=== PATIENT | female | born 1930 | race Caucasian/White ===

== ENCOUNTER 2016-05-30 15:14 | Emergency (ER) | payer MEDICARE, OTHER ==
--- NOTE | 2016-05-30 16:23 | EDM.PDOC ---
[id number] 2d LEG WEAKNESS, STOMACH ISSUE, LEFT FLANK PAIN, SOB Time Seen by Provider: 05/30/16 16:19 Source of Information: Reports: Patient History Limitations: Reports: No limitations - History of Present Illness INITIAL COMMENTS - FREE TEXT/NARRATIVE: Pt has been fatiqued and has had difficulty with pain her left flank area. Onset: gradual Duration: Hour(s): Location: Reports: neck, upper extremity, left, other ( flank) Associated Symptoms: Reports: shortness of breath, other ( Pt did have a flare of her wheezing today. ) - Related Data Allergies Allergy/AdvReac Type Severity Reaction Status Date / Time cefatrizine [Cefatrizine] AdvReac Vomiting Verified 05/30/16 15:40 Home Meds: Home Meds Fluticasone/Salmeterol [Advair 500-50] 1 puff INH DAILY PRN 10/31/12 [History] Aspirin [Guero Chewable Aspirin] 81 mg PO DAILY 01/26/14 [History] Latanoprost [Xalatan 0.005% Ophth Soln] 1 drop EYEBOTH BEDTIME 01/26/14 [History ] Multivitamin with Minerals [Multiple Vitamin] 1 tab PO DAILY 01/26/14 [History] Polyethylene Glycol 3350 [MiraLAX] 17 gm PO DAILY #510 gm 02/25/16 [Rx] Lisinopril 5 mg PO DAILY 05/30/16 [History] Past Medical History HEENT History: Reports: Cataract, Glaucoma, Hard of hearing Cardiovascular History: Reports: Arrhythmia, Hypertension Respiratory History: Reports: Asthma Gastrointestinal History: Reports: GERD, Other (see below) Other 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: , Other (see below) Other OB/BYN History: D&C x 2 Musculoskeletal History: Reports: Fracture, Other (see below) Other Musculoskeletal History: left shoulder tear exstensive Neurological History: Reports: Other (see below) Other Neuro History: 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 Psychiatric History: Reports: Depression Hematologic History: Reports: Blood transfusion(s) - Infectious Disease History Infectious Disease History: Reports: Chicken pox, Measles, Mumps, Scarlet fever , Shingles - Past Surgical History Head Surgeries/Procedures: Reports: None HEENT Surgical History: Reports: Cataract surgery GI Surgical History: Reports: Colonoscopy, EGD Neurological Surgical History: Reports: C-Spine Musculoskeletal Surgical History: Reports: Arthroscopic knee, Hip replacement Other Musculoskeletal Surgeries/Procedures:: miniscus tear Social & Family History - Family History Family Medical History: Noncontributory Oncologic: Reports: Esophageal - Tobacco Use Smoking Status *Q: Never Smoker Years of Tobacco use: 20 Packs/Tins Daily: 1 Used Tobacco, but Quit: Yes Month Tobacco Last Used: january Second Hand Smoke Exposure: Yes - Caffeine Use Caffeine Use: Reports: None - Alcohol Use Days Per Week of Alcohol Use: 0 - Recreational Drug Use Recreational Drug Use: No - Living Situation & Occupation Living situation: Reports: Occupation: retired (lives alone in her own home on [address], drives her own car. no family close by. Brother lives [facility] ED ROS GENERAL - Review of Systems Review Of Systems: See Below Constitutional: Reports: weakness, decreased appetite HEENT: Reports: No symptoms Respiratory: Reports: Shortness of Breath, Other ( Pt thought she had a flare of her asthma today. ) Endocrine: Reports: no symptoms GI/Abdominal: Reports: No symptoms : Reports: no symptoms ED EXAM, GENERAL - Physical Exam Exam: See Below Free Text/Narrative:: Pt arrived with weakness and left flank pain. Exam Limited By: No limitations General Appearance: alert, mild distress Ears: normal TMs Nose: normal inspection Throat/Mouth: Normal inspection Head: atraumatic Neck: normal inspection Respiratory/Chest: no respiratory distress Cardiovascular: regular rate, rhythm GI/Abdominal: soft, non tender Rectal (Female) Exam: Deferred Back Exam: CVA tenderness (L) Extremities: normal inspection Neurological: alert, oriented, normal cognition Psychiatric: normal affect Course - Vital Signs Last Recorded V/S: Last Vital Signs Temp 37.1 C 05/30/16 17:30 Pulse 58 L 05/30/16 17:30 Resp 18 05/30/16 17:30 BP 132/59 L 05/30/16 17:30 Pulse Ox 96 05/30/16 17:30 - Orders/Labs/Meds Labs: Laboratory Tests 05/30/16 05/30/16 05/30/16 Range/Units 16:07 16:07 16:09 WBC 7.0 (4.5-11.0) K/uL RBC 4.06 (3.30-5.50) M/uL Hgb 12.5 D (12.0-15.0) g/dL Hct 37.9 (36.0-48.0) % MCV 93 (80-98) fL MCH 31 (27-31) pg MCHC 33 (32-36) % Plt Count 223 (150-400) K/uL Neut % (Auto) 70 H (36-66) % Lymph % (Auto) 16 L (24-44) % Whitman % (Auto) 9 H (2-6) % Eos % (Auto) 4 (2-4) % Baso % (Auto) 1 (0-1) % Sodium 142 (140-148) mmol/L Potassium 3.6 (3.6-5.2) mmol/L Chloride 105 (100-108) mmol/L Carbon Dioxide 30 (21-32) mmol/L Anion Gap 7.5 (5.0-14.0) mmol/L BUN 19 H D (7-18) mg/dL Creatinine 0.8 (0.6-1.0) mg/dL Est Cr Clr Drug Dosing TNP Estimated GFR (MDRD) > 60 (>60) Glucose 101 (74-106) mg/dL Calcium 8.5 (8.5-10.1) mg/dL Total Bilirubin 0.4 (0.2-1.0) mg/dL AST 21 (15-37) U/L ALT 29 (12-78) U/L Alkaline Phosphatase 119 H (46-116) U/L C-Reactive Protein (0.0-0.3) mg/dL Total Protein 7.1 (6.4-8.2) g/dL Albumin 3.7 (3.4-5.0) g/dL Globulin 3.4 (2.3-3.5) g/dL Albumin/Globulin Ratio 1.1 L (1.2-2.2) TSH, Ultra Sensitive (0.358-3.740) uIU/mL Urine Color Yellow Urine Appearance Clear Urine pH 7.0 (4.5-8.0) Ur Specific [place] 1.005 L (1.008-1.030) Urine Protein Negative (NEGATIVE) mg/dL Urine Glucose (UA) Normal (NEGATIVE) mg/dL Urine Ketones Negative (NEGATIVE) mg/dL Urine Occult Blood Negative (NEGATIVE) Urine Nitrite Negative (NEGATIVE) Urine Bilirubin Negative (NEGATIVE) Urine Urobilinogen Normal (NORMAL) mg/dL Ur Leukocyte Esterase Negative (NEGATIVE) Urine RBC 0-5 (0-5) Urine WBC 0-5 (0-5) Ur Epithelial Cells Rare Amorphous Sediment Few Urine Bacteria Not seen Urine Mucus Few 05/30/16 05/30/16 Range/Units 16:09 17:02 WBC (4.5-11.0) K/uL RBC (3.30-5.50) M/uL Hgb (12.0-15.0) g/dL Hct (36.0-48.0) % MCV (80-98) fL MCH (27-31) pg MCHC (32-36) % Plt Count (150-400) K/uL Neut % (Auto) (36-66) % Lymph % (Auto) (24-44) % Whitman % (Auto) (2-6) % Eos % (Auto) (2-4) % Baso % (Auto) (0-1) % Sodium (140-148) mmol/L Potassium (3.6-5.2) mmol/L Chloride (100-108) mmol/L Carbon Dioxide (21-32) mmol/L Anion Gap (5.0-14.0) mmol/L BUN (7-18) mg/dL Creatinine (0.6-1.0) mg/dL Est Cr Clr Drug Dosing Estimated GFR (MDRD) (>60) Glucose (74-106) mg/dL Calcium (8.5-10.1) mg/dL Total Bilirubin (0.2-1.0) mg/dL AST (15-37) U/L ALT (12-78) U/L Alkaline Phosphatase (46-116) U/L C-Reactive Protein 0.12 (0.0-0.3) mg/dL Total Protein (6.4-8.2) g/dL Albumin (3.4-5.0) g/dL Globulin (2.3-3.5) g/dL Albumin/Globulin Ratio (1.2-2.2) TSH, Ultra Sensitive 0.505 (0.358-3.740) uIU/mL Urine Color Urine Appearance Urine pH (4.5-8.0) Ur Specific [place] (1.008-1.030) Urine Protein (NEGATIVE) mg/dL Urine Glucose (UA) (NEGATIVE) mg/dL Urine Ketones (NEGATIVE) mg/dL Urine Occult Blood (NEGATIVE) Urine Nitrite (NEGATIVE) Urine Bilirubin (NEGATIVE) Urine Urobilinogen (NORMAL) mg/dL Ur Leukocyte Esterase (NEGATIVE) Urine RBC (0-5) Urine WBC (0-5) Ur Epithelial Cells Amorphous Sediment Urine Bacteria Urine Mucus Meds: Medications Discontinued Medications Generic Name Dose Route Start Last Admin Trade Name Freq PRN Reason Stop Dose Admin Famotidine 20 mg 05/30/16 17:34 05/30/16 17:40 Pepcid PO 05/30/16 17:35 20 mg ONETIME ONE Administration Ketorolac Tromethamine 30 mg 05/30/16 17:27 05/30/16 17:40 Toradol IM 05/30/16 17:28 30 mg ONETIME ONE Administration - Re-Assessments/Exams Free Text/Narrative Re-Assessment/Exam: 05/30/16 17:35 pt hd normal lab work. her urine is clear. She has been stressed this week. Her flank pain i believe is muscle pain. Pt has a normal tsh. Pt has been stressed because the electricity was off and she could not get her garage door open to get her car out. She was able to get it part way up and she was straining to get it the rest of the way up. 05/30/16 17:37 06/02/16 07:07 Departure - Departure Time of Disposition: 17:37 Disposition: Home, Self-Care 01 Condition: fair Clinical Impression: Abdominal pain, Muscle strain Instructions: Muscle Strain, [id number], Abdominal Pain, Adult, [id number] Referrals: Ricky Traylor MD [Primary Care Provider] - Forms: ED Department Discharge Care Plan Goals: heat to the left cva area and left shoulder. eat litely and gradually advance diet, appt with Dr Kymberly hagen or giancarlo.
[2016-05-30] MEDS ORDERED: Ketorolac 30 MG/ML SDV IM ONE (17:27)
[2016-05-30 17:31] VITALS: BP 132/59
[2016-05-30] MEDS ORDERED: Famotidine 20 MG Tab PO ONE (17:34)
== END 2016-05-30 19:20 | disposition home or self-care (01) ==
LOC: JP.ED 15:14
DX: R10.9 Unspecified abdominal pain (principal); S39.011A Strain of muscle, fascia and tendon of abdomen, initial encounter; I10 Essential (primary) hypertension; J45.909 Unspecified asthma, uncomplicated; K21.9 Gastro-esophageal reflux disease without esophagitis; F32.9 Major depressive disorder, single episode, unspecified; Z98.49 Cataract extraction status, unspecified eye; Z96.649 Presence of unspecified artificial hip joint; Z98.890 Other specified postprocedural states; Z79.82 Long term (current) use of aspirin; Z79.899 Other long term (current) drug therapy; Z88.8 Allergy status to other drugs, medicaments and biological substances
CPT/HCPCS: 36415; 80053; 81001; 84443; 85025; 86140; 96372; 99285; A9270; J1885; 99283

== ENCOUNTER 2016-07-26 11:13 | Emergency (ER) | payer MEDICARE, OTHER ==
[2016-07-26 11:39] VITALS: BP 150/65
--- NOTE | 2016-07-26 13:08 | EDM.PDOC ---
ED HPI GENERAL MEDICAL PROBLEM - General Chief Complaint: General Stated Complaint: NOT FEELING WELL Time Seen by Provider: 07/26/16 11:58 Source of Information: Reports: Patient History Limitations: Reports: No Limitations Lower Back Pain Score (Numeric/FACES): 4 - Related Data Allergies Allergy/AdvReac Type Severity Reaction Status Date / Time cefatrizine [Cefatrizine] AdvReac Vomiting Verified 05/30/16 15:40 Home Meds: Home Meds Fluticasone/Salmeterol [Advair 500-50] 1 puff INH DAILY PRN 10/31/12 [History] Aspirin [Guero Chewable Aspirin] 81 mg PO DAILY 01/26/14 [History] Latanoprost [Xalatan 0.005% Ophth Soln] 1 drop EYEBOTH BEDTIME 01/26/14 [History ] Multivitamin with Minerals [Multiple Vitamin] 1 tab PO DAILY 01/26/14 [History] Lisinopril 5 mg PO DAILY 05/30/16 [History] Polyethylene Glycol 3350 [MiraLAX] 17 gm PO DAILY PRN 07/26/16 [History] Timolol Maleate [Timoptic 0.5% Ophth Soln] 1 drop EYEBOTH ASDIRECTED 07/26/16 [ History] predniSONE [Take Home: predniSONE 20 MG, 2 Tab Pack] 07/26/16 [History] Past Medical History HEENT History: Reports: Cataract, Glaucoma, Hard of Hearing Cardiovascular History: Reports: Arrhythmia, Hypertension Respiratory History: Reports: Asthma Gastrointestinal History: Reports: GERD, Other (See Below) Other 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 Psychiatric History: Reports: Depression Hematologic History: Reports: Blood Transfusion(s) - Infectious Disease History Infectious Disease History: Reports: Chicken Pox, Measles, Mumps, Scarlet Fever , Other (See Below) Other Infectious Disease History: states she has had hepatitis but does not know what kind. - Past Surgical History Head Surgeries/Procedures: Reports: None HEENT Surgical History: Reports: Cataract Surgery Musculoskeletal Surgical History: Reports: Arthroscopic Knee, Hip Replacement Social & Family History - Family History Family Medical History: Noncontributory Oncologic: Reports: Esophageal - Tobacco Use Smoking Status *Q: Never Smoker Years of Tobacco use: 20 Packs/Tins Daily: 1 Used Tobacco, but Quit: Yes Month Tobacco Last Used: january Second Hand Smoke Exposure: Yes - Caffeine Use Caffeine Use: Reports: Coffee, Tea - Alcohol Use Days Per Week of Alcohol Use: 0 - Recreational Drug Use Recreational Drug Use: No - Living Situation & Occupation Living situation: Reports: Occupation: Retired ED ROS GENERAL - Review of Systems Review Of Systems: See Below Constitutional: Reports: Weakness, Fatigue. Denies: Fever, Chills, Malaise, Night Sweats, Diaphoresis, Decreased Appetite, Weight Loss, Weight Gain HEENT: Reports: No Symptoms Respiratory: Denies: Shortness of Breath, Wheezing, Pleuritic Chest Pain, Cough , Sputum, Hemoptysis Cardiovascular: Denies: Chest Pain, Blood Pressure Problem, Dyspnea on Exertion , Edema, Lightheadedness, Palpitations, PND, Syncope Endocrine: Reports: Fatigue GI/Abdominal: Reports: No Symptoms : Reports: Frequency. Denies: Discharge, Dysuria, Flank Pain, Hematuria, Incontinence, Pain, Urgency Musculoskeletal: Reports: Other (Muscle weakness) Skin: Reports: No Symptoms Neurological: Denies: Confusion, Dizziness, Headache, Paresthesia, Syncope, Difficulty Walking, Gait Disturbance Psychiatric: Reports: Anxiety. Denies: Confusion, Depression, Hallucinations, Homicidal Ideation, Mood Lability, Suicidal Ideation Hematologic/Lymphatic: Reports: No Symptoms Immunologic: Reports: No Symptoms ED EXAM, GENERAL - Physical Exam Exam: See Below Exam Limited By: No Limitations General Appearance: Alert, WD/WN, No Apparent Distress Eye Exam: Bilateral Eye: Normal Inspection, PERRL Ears: Normal External Exam, Normal Canal, Hearing Grossly Normal, Normal TMs Ear Exam: Bilateral Ear: Auricle Normal, Canal Normal, TM normal Nose: Normal Inspection, Normal Mucosa, No Blood Throat/Mouth: Normal Inspection, Normal Lips, Normal Gums, Normal Oropharynx, Normal Voice, No Airway Compromise Head: Atraumatic, Normocephalic Neck: Normal Inspection, Supple, Non-Tender, Full Range of Motion Respiratory/Chest: No Respiratory Distress, Lungs Clear, Normal Breath Sounds, No Accessory Muscle Use, Chest Non-Tender Cardiovascular: Normal Peripheral Pulses, Regular Rate, Rhythm, No Edema, No Gallop, No Murmur GI/Abdominal: Normal Bowel Sounds, Soft, Non-Tender, No Organomegaly, No Distention, No Mass Back Exam: Normal Inspection, Full Range of Motion. No: CVA Tenderness (R), CVA Tenderness (L) Extremities: Normal Inspection, Normal Range of Motion, Non-Tender, No Pedal Edema, Normal Capillary Refill Neurological: Alert, Oriented, CN II-XII Intact, Normal Cognition, Normal Gait, No Motor/Sensory Deficits Psychiatric: Normal Affect, Anxious, Tearful Skin Exam: Warm, Dry, Intact, Normal Color, No Rash Lymphatic: No Adenopathy Course - Vital Signs Last Recorded V/S: Last Vital Signs Temp 36.3 C 07/26/16 11:52 Pulse 73 07/26/16 11:52 Resp 16 07/26/16 11:52 BP 150/65 H 07/26/16 11:52 Pulse Ox 95 07/26/16 11:52 - Orders/Labs/Meds Labs: Laboratory Tests 07/26/16 Range/Units 12:12 Urine Color Yellow Urine Appearance Clear Urine pH 6.0 (4.5-8.0) Ur Specific [place] 1.010 (1.008-1.030) Urine Protein Negative (NEGATIVE) mg/dL Urine Glucose (UA) Normal (NEGATIVE) mg/dL Urine Ketones Negative (NEGATIVE) mg/dL Urine Occult Blood Negative (NEGATIVE) Urine Nitrite Negative (NEGATIVE) Urine Bilirubin Negative (NEGATIVE) Urine Urobilinogen Normal (NORMAL) mg/dL Ur Leukocyte Esterase Negative (NEGATIVE) Urine RBC Not seen (0-5) Urine WBC Not seen (0-5) Ur Epithelial Cells Not seen Amorphous Sediment Not seen Urine Bacteria Not seen Urine Mucus Not seen Departure - Departure Time of Disposition: 13:04 Disposition: Home, Self-Care 01 Condition: good Clinical Impression: Anxiety, Muscle weakness (generalized) - Discharge Information Instructions: Panic Attacks, [id number] Referrals: Ricky Traylor MD [Primary Care Provider] - Forms: ED Department Discharge Additional Instructions: Review of your lab work and urine analysis was normal today. You have weakness of your legs. Keep yourself hydrated with drinking plenty of water. Keep yourself nourished with plenty of good food. You were provided information for life alert button use and a local exercise group for strengthening. It is in your best interest to follow up with Dr. Traylor this week or next week for further evaluation and medication management. You may want to consider use of medication for anxiety, vitamin d level and supplementation if needed or a physical therapy referral for strengthening and evaluation of weakness. Return at any time for worsening of symptoms. - Assessment/Plan Assessment:: Anxiety Muscle weakness Plan: Patient lab work and urine analysis was normal today. She has weakness of your legs. Keep hydrated with drinking plenty of water. Keep nourished with plenty of good food. She were provided information for life alert button use and a local exercise group for strengthening. It is in her best interest to follow up with Dr. Traylor this week or next week for further evaluation and medication management. She may want to consider use of medication for anxiety, vitamin d level and supplementation if needed or a physical therapy referral for strengthening and evaluation of weakness. Return at any time for worsening of symptoms.
== END 2016-07-26 13:26 | disposition home or self-care (01) ==
LOC: JP.ED 11:13
DX: M62.81 Muscle weakness (generalized) (principal); F41.9 Anxiety disorder, unspecified; I10 Essential (primary) hypertension; J45.909 Unspecified asthma, uncomplicated; K21.9 Gastro-esophageal reflux disease without esophagitis; F32.9 Major depressive disorder, single episode, unspecified; Z98.49 Cataract extraction status, unspecified eye; Z96.649 Presence of unspecified artificial hip joint; Z98.890 Other specified postprocedural states; Z79.82 Long term (current) use of aspirin; Z79.899 Other long term (current) drug therapy; Z88.8 Allergy status to other drugs, medicaments and biological substances
CPT/HCPCS: 81001; 99282; 99284

== ENCOUNTER 2016-08-05 17:24 | Inpatient (IN) | payer MEDICARE, OTHER ==
[2016-08-05] MEDS ORDERED: Sodium Chloride 0.9% 1,000 ML IV SCH ×2 (20:15→23:27)
--- NOTE | 2016-08-05 22:52 | EDM.PDOC ---
ED HPI GENERAL MEDICAL PROBLEM - General Chief Complaint: Syncope Stated Complaint: ILLNESS Time Seen by Provider: 08/05/16 19:47 Source of Information: Reports: Patient, RN Notes Reviewed, Other (friends) History Limitations: Reports: No Limitations - History of Present Illness INITIAL COMMENTS - FREE TEXT/NARRATIVE: weakness, near fainting; this is a 85 year old female presents to ER with friends. Her friends check on her well being at her home on [facility]. They were concern and brought her to the hospital , when they witnessed her to be very weak, near fainted in home. weakness; past week, but reports hasn't felt well since last winter dull headache, reports had her blood pressure medication changed to Lisinopril, hasn't felt well since. eating; decreased appetite, denies any nausea, vomiting or diarrhea, wt loss of 10 pound since last winter skin; denies any tick bites or rashes. Onset: Gradual Duration: Getting Worse Location: Reports: Generalized Improves with: Reports: None Worsens with: Reports: None Associated Symptoms: Reports: Headaches, Loss of Appetite, Malaise, Syncope ( near), Weakness Headache Pain Score (Numeric/FACES): 4 - Related Data Allergies Allergy/AdvReac Type Severity Reaction Status Date / Time cefatrizine [Cefatrizine] AdvReac Vomiting Verified 05/30/16 15:40 Home Meds: Home Meds Fluticasone/Salmeterol [Advair 500-50] 1 puff INH DAILY PRN 10/31/12 [History] Aspirin [Guero Chewable Aspirin] 81 mg PO DAILY 01/26/14 [History] Latanoprost [Xalatan 0.005% Ophth Soln] 1 drop EYEBOTH BEDTIME 01/26/14 [History ] Multivitamin with Minerals [Multiple Vitamin] 1 tab PO DAILY 01/26/14 [History] Lisinopril 5 mg PO DAILY 05/30/16 [History] Omeprazole 20 mg PO DAILY 08/05/16 [History] Past Medical History HEENT History: Reports: Cataract, Glaucoma, Hard of Hearing Cardiovascular History: Reports: Arrhythmia, Hypertension Respiratory History: Reports: Asthma Gastrointestinal History: Reports: GERD, Other (See Below) 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 Psychiatric History: Reports: Depression Hematologic History: Reports: Blood Transfusion(s) - Infectious Disease History Infectious Disease History: Reports: Chicken Pox, Measles, Mumps, Scarlet Fever , Other (See Below) Other Infectious Disease History: states she has had hepatitis but does not know what kind. - Past Surgical History Head Surgeries/Procedures: Reports: None HEENT Surgical History: Reports: Cataract Surgery Musculoskeletal Surgical History: Reports: Arthroscopic Knee, Hip Replacement Social & Family History - Family History Family Medical History: Noncontributory Oncologic: Reports: Esophageal - Tobacco Use Smoking Status *Q: Never Smoker Years of Tobacco use: 20 Packs/Tins Daily: 1 Used Tobacco, but Quit: Yes Month Tobacco Last Used: january Second Hand Smoke Exposure: No - Caffeine Use Caffeine Use: Reports: Tea - Alcohol Use Days Per Week of Alcohol Use: 0 - Recreational Drug Use Recreational Drug Use: No - Living Situation & Occupation Living situation: Reports: Occupation: Retired (85 y/o female lives alone at her home on [facility]. one son, lives in [place]) ED ROS GENERAL - Review of Systems Review Of Systems: See Below Constitutional: Reports: Weakness, Fatigue, Decreased Appetite, Weight Loss HEENT: Reports: Other (dry mouth) Respiratory: Reports: No Symptoms Cardiovascular: Reports: Blood Pressure Problem, Other (chronic irregular rythm , with PAC's.) Endocrine: Reports: Fatigue GI/Abdominal: Reports: Decreased Appetite : Reports: Frequency, Urgency Musculoskeletal: Reports: No Symptoms Skin: Reports: No Symptoms Neurological: Reports: Headache, Weakness Psychiatric: Reports: No Symptoms Hematologic/Lymphatic: Reports: No Symptoms Immunologic: Reports: No Symptoms ED EXAM, GENERAL - Physical Exam Exam: See Below Exam Limited By: No Limitations General Appearance: Alert, No Apparent Distress Eye Exam: Bilateral Eye: Normal Inspection, PERRL Ears: Normal External Exam, Normal Canal, Hearing Grossly Normal, Normal TMs Ear Exam: Bilateral Ear: Auricle Normal, Canal Normal, TM normal Nose: Normal Inspection, Normal Mucosa, No Blood Throat/Mouth: Other (mouth dryness noted, dentures.) Head: Atraumatic, Normocephalic Neck: Normal Inspection, Supple, Non-Tender, Full Range of Motion Respiratory/Chest: No Respiratory Distress, Lungs Clear, Normal Breath Sounds, No Accessory Muscle Use, Chest Non-Tender Cardiovascular: Normal Peripheral Pulses, No Edema, No Murmur, Irregularly Irregular Peripheral Pulses: 2+: Radial (L), Radial (R), Dorsalis Pedis (L), Dorsalis Pedis (R) GI/Abdominal: Normal Bowel Sounds, Soft, Non-Tender, No Organomegaly, No Distention, No Abnormal Bruit, No Mass, Pelvis Stable (Female) Exam: Deferred Rectal (Female) Exam: Deferred Back Exam: Normal Inspection, Full Range of Motion Extremities: Normal Inspection, Normal Range of Motion, Non-Tender, No Pedal Edema, Normal Capillary Refill Neurological: Alert, Oriented, Normal Cognition, No Motor/Sensory Deficits Psychiatric: Normal Affect, Normal Mood Skin Exam: Warm, Dry, Intact, Normal Color, No Rash Lymphatic: No Adenopathy Course - Vital Signs Last Recorded V/S: Last Vital Signs Temp 36.8 C 08/05/16 19:56 Pulse 66 08/05/16 21:36 Resp 16 08/05/16 22:03 BP 167/99 H 08/05/16 22:03 Pulse Ox 98 08/05/16 22:03 Orthostatic Blood Pressure [ 188/88 Standing] Orthostatic Blood Pressure [ 197/102 Sitting] - Orders/Labs/Meds Orders: Active Orders 24 hr Category Date Time Status Patient Status Manage Transfer [TRANSFER] Routine ADT 08/05/16 22:22 Active Cardiac Monitoring [RC] .As Directed Care 08/05/16 22:22 Active EKG Documentation Completion [RC] ASDIRECTED Care 08/05/16 20:04 Active Head wo Cont [CT] Stat Exams 08/05/16 21:14 Taken Sodium Chloride 0.9% [Normal Saline] 1,000 ml Med 08/05/16 20:15 Active IV ASDIRECTED Resuscitation Status Routine Resus Stat 08/05/16 22:24 Ordered EKG 12 Lead [EK] Urgent Ther 08/05/16 20:03 Ordered Medication Orders Sodium Chloride (Normal Saline) 1,000 mls @ 150 mls/hr IV ASDIRECTED RENETTA Last Admin: 08/05/16 20:38 Dose: 150 mls/hr Labs: Laboratory Tests 08/05/16 08/05/16 08/05/16 Range/Units 20:02 20:02 20:02 WBC 6.0 (4.5-11.0) K/uL RBC 4.12 (3.30-5.50) M/uL Hgb 12.6 (12.0-15.0) g/dL Hct 38.7 (36.0-48.0) % MCV 94 (80-98) fL MCH 31 (27-31) pg MCHC 33 (32-36) % Plt Count 241 (150-400) K/uL Neut % (Auto) 62 (36-66) % Lymph % (Auto) 20 L (24-44) % [place] % (Auto) 10 H (2-6) % Eos % (Auto) 5 H (2-4) % Baso % (Auto) 2 H (0-1) % Sodium 146 (140-148) mmol/L Potassium 3.7 (3.6-5.2) mmol/L Chloride 107 (100-108) mmol/L Carbon Dioxide 26 (21-32) mmol/L Anion Gap 12.9 (5.0-14.0) mmol/L BUN 10 (7-18) mg/dL Creatinine 0.6 (0.6-1.0) mg/dL Est Cr Clr Drug Dosing 49.85 mL/min Estimated GFR (MDRD) > 60 (>60) Glucose 96 (74-106) mg/dL Calcium 9.1 (8.5-10.1) mg/dL Magnesium 2.4 (1.8-2.4) mg/dL Total Bilirubin 0.4 (0.2-1.0) mg/dL AST 21 (15-37) U/L ALT 22 (12-78) U/L Alkaline Phosphatase 141 H (46-116) U/L Troponin I < 0.017 (0.000-0.056) ng/mL Total Protein 7.3 (6.4-8.2) g/dL Albumin 3.7 (3.4-5.0) g/dL Globulin 3.6 H (2.3-3.5) g/dL Albumin/Globulin Ratio 1.0 L (1.2-2.2) Amylase 54 (25-115) U/L Lipase 126 (73-393) U/L TSH, Ultra Sensitive 0.803 (0.358-3.740) uIU/mL Urine Color Urine Appearance Urine pH (4.5-8.0) Ur Specific [place] (1.008-1.030) Urine Protein (NEGATIVE) mg/dL Urine Glucose (UA) (NEGATIVE) mg/dL Urine Ketones (NEGATIVE) mg/dL Urine Occult Blood (NEGATIVE) Urine Nitrite (NEGATIVE) Urine Bilirubin (NEGATIVE) Urine Urobilinogen (NORMAL) mg/dL Ur Leukocyte Esterase (NEGATIVE) Urine RBC (0-5) Urine WBC (0-5) Ur Epithelial Cells Amorphous Sediment Urine Bacteria Urine Mucus 08/05/16 Range/Units 20:26 WBC (4.5-11.0) K/uL RBC (3.30-5.50) M/uL Hgb (12.0-15.0) g/dL Hct (36.0-48.0) % MCV (80-98) fL MCH (27-31) pg MCHC (32-36) % Plt Count (150-400) K/uL Neut % (Auto) (36-66) % Lymph % (Auto) (24-44) % [place] % (Auto) (2-6) % Eos % (Auto) (2-4) % Baso % (Auto) (0-1) % Sodium (140-148) mmol/L Potassium (3.6-5.2) mmol/L Chloride (100-108) mmol/L Carbon Dioxide (21-32) mmol/L Anion Gap (5.0-14.0) mmol/L BUN (7-18) mg/dL Creatinine (0.6-1.0) mg/dL Est Cr Clr Drug Dosing mL/min Estimated GFR (MDRD) (>60) Glucose (74-106) mg/dL Calcium (8.5-10.1) mg/dL Magnesium (1.8-2.4) mg/dL Total Bilirubin (0.2-1.0) mg/dL AST (15-37) U/L ALT (12-78) U/L Alkaline Phosphatase (46-116) U/L Troponin I (0.000-0.056) ng/mL Total Protein (6.4-8.2) g/dL Albumin (3.4-5.0) g/dL Globulin (2.3-3.5) g/dL Albumin/Globulin Ratio (1.2-2.2) Amylase (25-115) U/L Lipase (73-393) U/L TSH, Ultra Sensitive (0.358-3.740) uIU/mL Urine Color Yellow Urine Appearance Clear Urine pH 8.0 (4.5-8.0) Ur Specific [place] 1.015 (1.008-1.030) Urine Protein Negative (NEGATIVE) mg/dL Urine Glucose (UA) Normal (NEGATIVE) mg/dL Urine Ketones Negative (NEGATIVE) mg/dL Urine Occult Blood Negative (NEGATIVE) Urine Nitrite Negative (NEGATIVE) Urine Bilirubin Negative (NEGATIVE) Urine Urobilinogen Normal (NORMAL) mg/dL Ur Leukocyte Esterase Negative (NEGATIVE) Urine RBC 0-5 (0-5) Urine WBC 0-5 (0-5) Ur Epithelial Cells Rare Amorphous Sediment Not seen Urine Bacteria Rare Urine Mucus Not seen Meds: Medications Generic Name Dose Route Start Last Admin Trade Name Freq PRN Reason Stop Dose Admin Sodium Chloride 1,000 mls @ 150 mls/hr 08/05/16 20:15 08/05/16 20:38 Normal Saline IV 150 mls/hr ASDIRECTED [facility] Administration - Re-Assessments/Exams Free Text/Narrative Re-Assessment/Exam: 08/05/16 labs, imaging completed; no acute finding Head CT pending IV fluids started. discussed with Mrs. Ponce will admit to hospital for monitoring and recheck labs in morning. Departure - Departure Time of Disposition: 23:00 Disposition: Admitted As Inpatient 64 Condition: Good Clinical Impression: Weakness generalized - Discharge Information Forms: ED Department Discharge Care Plan Goals: admit to hospital for further monitoring. - My Orders Last 24 Hours: My Active Orders 08/05/16 20:03 EKG 12 Lead [EK] Urgent 08/05/16 20:04 EKG Documentation Completion [RC] ASDIRECTED 08/05/16 20:15 Sodium Chloride 0.9% [Normal Saline] 1,000 ml IV ASDIRECTED 08/05/16 21:14 Head wo Cont [CT] Stat 08/05/16 22:22 Patient Status Manage Transfer [TRANSFER] Routine Cardiac Monitoring [RC] .As Directed 08/05/16 22:24 Resuscitation Status Routine - Assessment/Plan Last 24 Hours: My Active Orders 08/05/16 20:03 EKG 12 Lead [EK] Urgent 08/05/16 20:04 EKG Documentation Completion [RC] ASDIRECTED 08/05/16 20:15 Sodium Chloride 0.9% [Normal Saline] 1,000 ml IV ASDIRECTED 08/05/16 21:14 Head wo Cont [CT] Stat 08/05/16 22:22 Patient Status Manage Transfer [TRANSFER] Routine Cardiac Monitoring [RC] .As Directed 08/05/16 22:24 Resuscitation Status Routine
--- NOTE | 2016-08-05 23:03 | PCM.HP ---
H&P History of Present Illness - General Date of Service: 08/05/16 Admit Problem/Dx: Admission Diagnosis/Problem Admission Diagnosis/Problem Weakness Source of Information: Patient History Limitations: Reports: No Limitations - History of Present Illness Initial Comments - Free Text/Narative: INITIAL COMMENTS - FREE TEXT/NARRATIVE: weakness, near fainting; this is a 85 year old female presents to ER with friends. Her friends check on her well being at her home on [facility]. They were concern and brought her to the hospital , when they witnessed her to be very weak, near fainted in home. weakness; past week, but reports hasn't felt well since last winter dull headache, reports had her blood pressure medication changed to Lisinopril, hasn't felt well since. eating; decreased appetite, denies any nausea, vomiting or diarrhea, wt loss of 10 pound since last winter skin; denies any tick bites or rashes. Onset of Symptoms: Reports: Gradual Duration of Symptoms: Reports: Chronic (reports not feeling well since last winter), Getting Worse Location: Reports: Generalized Quality: Reports: Same as Previous Episode Severity: Moderate Improves with: Reports: None Worsens with: Reports: None Context: Reports: Other Associated Symptoms: Reports: Loss of Appetite, Malaise, Weakness, Other (wt loss) Headache Pain Score (Numeric/FACES): 4 - Related Data Allergies/Adverse Reactions: Allergies Allergy/AdvReac Type Severity Reaction Status Date / Time cefatrizine [Cefatrizine] AdvReac Vomiting Verified 05/30/16 15:40 Home Medications: Home Meds Fluticasone/Salmeterol [Advair 500-50] 1 puff INH DAILY PRN 10/31/12 [History] Aspirin [Guero Chewable Aspirin] 81 mg PO DAILY 01/26/14 [History] Latanoprost [Xalatan 0.005% Ophth Soln] 1 drop EYEBOTH BEDTIME 01/26/14 [History ] Multivitamin with Minerals [Multiple Vitamin] 1 tab PO DAILY 01/26/14 [History] Lisinopril 5 mg PO DAILY 05/30/16 [History] Omeprazole 20 mg PO DAILY 08/05/16 [History] Past Medical History HEENT History: Reports: Cataract, Glaucoma, Hard of Hearing Cardiovascular History: Reports: Arrhythmia, Hypertension Respiratory History: Reports: Asthma Gastrointestinal History: Reports: GERD, Other (See Below) Other 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 Psychiatric History: Reports: Depression Hematologic History: Reports: Blood Transfusion(s) - Infectious Disease History Infectious Disease History: Reports: Chicken Pox, Measles, Mumps, Scarlet Fever , Other (See Below) Other Infectious Disease History: states she has had hepatitis but does not know what kind. - Past Surgical History Head Surgeries/Procedures: Reports: None HEENT Surgical History: Reports: Cataract Surgery Musculoskeletal Surgical History: Reports: Arthroscopic Knee, Hip Replacement Social & Family History - Family History Family Medical History: Noncontributory Oncologic: Reports: Esophageal - Tobacco Use Smoking Status *Q: Never Smoker Years of Tobacco use: 20 Packs/Tins Daily: 1 Used Tobacco, but Quit: Yes Month Tobacco Last Used: january Second Hand Smoke Exposure: No - Caffeine Use Caffeine Use: Reports: Tea - Alcohol Use Days Per Week of Alcohol Use: 0 - Recreational Drug Use Recreational Drug Use: No - Living Situation & Occupation Living situation: Reports: Occupation: Retired (85 y/o female lives alone at her home on [facility]. one son, lives in [place]) H&P Review of Systems - Review of Systems: Review Of Systems: See Below General: Reports: Malaise, Weakness, Fatigue, Decreased Appetite, Weight Loss ( ten pounds in the past 6 months) HEENT: Reports: No Symptoms, Other Pulmonary: Reports: No Symptoms Cardiovascular: Reports: Lightheadedness, Blood Pressure Problem Gastrointestinal: Reports: Decreased Appetite Genitourinary: Reports: Frequency, Urgency Musculoskeletal: Reports: No Symptoms Skin: Reports: No Symptoms Psychiatric: Reports: No Symptoms Neurological: Reports: Headache, Syncope (near fainting), Weakness Hematologic/Lymphatic: Reports: No Symptoms Immunologic: Reports: No Symptoms Exam - Exam Exam: See Below - Vital Signs Vital Signs: Last Vital Signs Temp 36.8 C 08/05/16 19:56 Pulse 66 08/05/16 21:36 Resp 16 08/05/16 22:59 BP 165/72 H 08/05/16 22:59 Pulse Ox 98 08/05/16 22:59 Weight: 53.524 kg - Exam General: Alert, Oriented, Cooperative HEENT: PERRLA, Conjunctiva Clear, EACs Clear, EOMI, Hearing Intact, Mucosa Moist & [place], Nares Patent, Normal Nasal Septum, Posterior Pharynx Clear, Pupils Equal, Pupils Reactive, TMs Clear Neck: Supple, Trachea Midline Lungs: Clear to Auscultation, Normal Respiratory Effort Cardiovascular: Regular Rate, Regular Rhythm Abdomen: Normal Bowel Sounds, Soft, Tenderness ("hernia") (Female) Exam: Deferred Rectal (Female) Exam: Deferred Back Exam: Normal Inspection, Full Range of Motion Extremities: Normal Inspection Skin: Warm, Dry, Intact Neurological: Reflexes Equal Bilateral, Strength Equal Bilateral, Normal Speech Neuro Extensive - Mental Status: Alert, Oriented x3, Normal Mood/Affect, Memory Intact Psychiatric: Alert, Normal Affect, Normal Mood - Patient Data Result Diagrams: 08/05/16 20:02 08/05/16 20:02 *Q Meaningful Use (ADM) - VTE *Q VTE Criteria *Q: - Stroke *Q Stroke Criteria *Q: - AMI *Q AMI Criteria *Q: - Problem List (1) Near syncope SNOMED Code(s): 880942390 ICD Code: R55 - SYNCOPE AND COLLAPSE Status: Acute Priority: High Current Visit: Yes (2) Weakness generalized SNOMED Code(s): 42466160 ICD Code: R53.1 - WEAKNESS Status: Acute Priority: High Current Visit: Yes Problem List Initiated/Reviewed/Updated: Yes Orders Last 24hrs: Active Orders 24 hr Category Date Time Status Resuscitation Status Routine Resus Stat 08/05/16 22:24 Ordered Medication Orders Sodium Chloride (Normal Saline) 1,000 mls @ 150 mls/hr IV ASDIRECTED RENETTA Last Admin: 08/05/16 20:38 Dose: 150 mls/hr Assessment/Plan Comment:: Assessment and plan- weakness, near fainting; this is a 85 year old female presents to ER with friends. Her friends check on her well being at her home on [facility]. They were concern and brought her to the hospital , when they witnessed her to be very weak, near fainted in home. weakness; past week, but reports hasn't felt well since last winter dull headache, reports had her blood pressure medication changed to Lisinopril, hasn't felt well since. eating; decreased appetite, denies any nausea, vomiting or diarrhea, wt loss of 10 pound since last winter skin; denies any tick bites or rashes. Plan Weakness with near syncope -Admit to [address] [place] [id number] for further monitoring -IV Fluids for rehydration NS at 125 mL per hour -Advise to notify nurses of any chest pain or other symptoms -blood cultures x2 pending -And a.m. labs: CBC, BMP Maintenance issues -Orders home meds: -Nutrition: Regular diet -[place] catheter not indicated at this time -DVT: SCD -PPI; IV Protonix 40mg daily CODE STATUS: Full Admission status: Admit to [address] [place] [address] Admission justification. This patient will be admitted for inpatient services and is medically appropriate meeting medical necessity for inpatient admission as outlined in my documentation. I reasonably expect the patient will require inpatient services that span. Time over 2 midnights. I reasonably expect this patient to be discharged or transferred within 96 hours after admission to the critical access hospital. Disposition; home Primary care provider: Dr. Traylor
[2016-08-05] MEDS ORDERED: Formoterol/Mometasone 200-5 MCG 8.8 GM Inhaler IH PRN (23:27)
[2016-08-05] MEDS ORDERED: Ondansetron 4 MG Tab.DIS PO PRN (23:27)
[2016-08-05] MEDS ORDERED: oxyCODONE 5 MG Tab PO PRN (23:27)
[2016-08-05] MEDS ORDERED: Ondansetron 4 MG/2 ML SDV IV PRN (23:27)
[2016-08-05] MEDS ORDERED: Albuterol 0.083% 2.5 MG/3 ML Neb Soln NEB PRN (23:27)
[2016-08-05] MEDS ORDERED: Acetaminophen 325 MG Tab PO PRN (23:27)
[2016-08-05] MEDS ORDERED: Docusate Sodium 100 MG Cap PO PRN (23:27)
[2016-08-05] MEDS ORDERED: Morphine 2 MG/ML Syringe IVPUSH PRN (23:27)
[2016-08-05] MEDS ORDERED: LORazepam 2 MG/ML MDV IV PRN (23:27)
[2016-08-05] MEDS ORDERED: Zolpidem 5 MG Tab PO PRN (23:27)
[2016-08-06] MEDS ORDERED: Pantoprazole 40 MG Tab.CR PO SCH (07:30)
--- NOTE | 2016-08-06 08:44 | CR ---
Chest 1V Frontal INDICATION: weakness FINDINGS: Comparison 03/04/2016. Hyperinflation. Heart size normal allowing for portable AP technique . Postoperative changes cervical thoracic junction. No focal infiltrate. Chest otherwise negative.
[2016-08-06] MEDS: Lisinopril 5 MG Tab PO SCH ×2 (08:57→13:27)
[2016-08-06] MEDS ORDERED: Aspirin 81 MG Tab.Chew PO SCH (09:00)
[2016-08-06] MEDS ORDERED: Multivitamins with Iron/Calcium/Folic Acid/Minerals Tab PO SCH (09:00)
[2016-08-06 10:35] VITALS: BP 142/49
--- NOTE | 2016-08-06 13:21 | PCM.DCSUM1 ---
Discharge Summary - Hospital Course Brief History: Ms. Parada is an 85-year-old woman who was admitted through the emergency department last night with progressive weakness and a vasovagal episode with near syncope. - Discharge Data Discharge Date: 08/06/16 Discharge Disposition: Home, Self-Care 01 Condition: Fair - Discharge Diagnosis/Problem(s) (1) Vaso vagal episode SNOMED Code(s): 492718424 ICD Code: R55 - SYNCOPE AND COLLAPSE Status: Acute Current Visit: Yes (2) Weakness generalized SNOMED Code(s): 50993011 ICD Code: R53.1 - WEAKNESS Status: Acute Priority: High Current Visit: Yes - Patient Summary/Data Consults: Consultations 08/05/16 23:27 Consult to Case Management [CONS] Routine Comment: Physician Instructions: Quantity: Consult to Spiritual Care [CONS] Routine OT Evaluation and Treatment [CONS] Routine Please Evaluate and Treat. OT Reason for Consult: Discharge Planning This query below is only for informational purposes and is not editable. PT Evaluation and Treatment [CONS] Routine Please Evaluate and Treat. PT Reason for Consult: Strengthening This query below is only for informational purposes and is not editable. Hospital Course: Ms. Parada is an 85-year-old woman who reports that she has had history of progressive weakness over the past 6 months. On the evening of admission she experienced a near syncopal episode secondary to vasovagal event. CT scan of the head was obtained in the emergency department and was unremarkable and there were no significant hemodynamic abnormalities or metabolic abnormalities identified on evaluation. There was also no evidence of significant underlying infection. She was admitted to the hospital and remained stable throughout the time that she was hospitalized with good vital signs and no significant temperature elevations. She feels strongly that she has not felt well ever since she was started on lisinopril and would like to get off of this medication and go back to her previous therapy with hydrochlorothiazide and supplemental potassium. I did explain to her that I did not think this was a likely cause of her symptoms but she was fairly insistent on making this change. For this reason the lisinopril will be discontinued at the time of discharge and she will be placed on hydrochlorothiazide 12.5 mg and potassium 20 once daily. Activity will be as tolerated and she will resume her usual diet. Follow-up appointment will be scheduled with her primary care provider Dr. Traylor within 1 week. - Patient Instructions Diet: Usual Diet as Tolerated Activity: As Tolerated Other/Special Instructions: Please arrange for home care with home physical therapy and occupational therapy after discharge. Please schedule follow-up appointment with Dr. Traylor within 1 week. - Discharge Plan Home Medications: Home Meds Fluticasone/Salmeterol [Advair 500-50] 1 puff INH DAILY PRN 10/31/12 [History] Aspirin [Guero Chewable Aspirin] 81 mg PO DAILY 01/26/14 [History] Latanoprost [Xalatan 0.005% Ophth Soln] 1 drop EYEBOTH BEDTIME 01/26/14 [History ] Multivitamin with Minerals [Multiple Vitamin] 1 tab PO DAILY 01/26/14 [History] Omeprazole 20 mg PO DAILY 08/05/16 [History] Hydrochlorothiazide 12.5 mg PO DAILY cap 08/06/16 [Rx] Potassium Chloride [Klor-Con M20] 20 meq PO DAILY tab.er 08/06/16 [Rx] Referrals: Ricky Traylor MD [Primary Care Provider] - - Patient Data Vitals - Most Recent: Last Vital Signs Temp 98.1 F 08/06/16 10:34 Pulse 68 08/06/16 10:34 Resp 18 08/06/16 10:34 BP 142/49 H 08/06/16 10:34 Pulse Ox 96 08/06/16 10:34 Weight - Most Recent: 120 lb 3.983 oz I&O - Last 24 hours: Intake & Output 08/05/16 08/06/16 08/06/16 22:59 06:59 14:59 Intake Total 50 480 Output Total 900 1100 Balance -850 -620 Lab Results - Last 24 hrs: Laboratory Results - last 24 hr 08/06/16 08/06/16 Range/Units 05:11 05:11 WBC 6.7 (4.5-11.0) K/uL RBC 3.92 (3.30-5.50) M/uL Hgb 11.8 L (12.0-15.0) g/dL Hct 37.1 (36.0-48.0) % MCV 95 (80-98) fL MCH 30 (27-31) pg MCHC 32 (32-36) % Plt Count 245 (150-400) K/uL Neut % (Auto) 62 (36-66) % Lymph % (Auto) 19 L (24-44) % [place] % (Auto) 12 H (2-6) % Eos % (Auto) 6 H (2-4) % Baso % (Auto) 1 (0-1) % Sodium 146 (140-148) mmol/L Potassium 3.7 (3.6-5.2) mmol/L Chloride 109 H (100-108) mmol/L Carbon Dioxide 30 (21-32) mmol/L Anion Gap 10.7 (5.0-14.0) mmol/L BUN 7 (7-18) mg/dL Creatinine 0.7 (0.6-1.0) mg/dL Est Cr Clr Drug Dosing 42.73 mL/min Estimated GFR (MDRD) > 60 (>60) Glucose 87 (74-106) mg/dL Calcium 8.5 (8.5-10.1) mg/dL Med Orders - Current: Current Medications Acetaminophen (Tylenol) 650 mg PO Q4H PRN PRN Reason: Pain (Mild 1-3)/fever Albuterol (Proventil Neb Soln) 2.5 mg NEB Q4H PRN PRN Reason: Shortness Of Breath/wheezing Aspirin (Aspirin) 81 mg PO DAILY [facility] Last Admin: 08/06/16 08:56 Dose: 81 mg Docusate Sodium (Colace) 100 mg PO BID PRN PRN Reason: Constipation Hydrochlorothiazide (Hydrochlorothiazide) 12.5 mg PO DAILY [facility] Sodium Chloride (Normal Saline) 1,000 mls @ 100 mls/hr IV ASDIRECTED [facility] Last Admin: 08/06/16 03:18 Dose: 100 mls/hr Latanoprost (Xalatan 0.005% Ophth Soln) 0 ml EYEBOTH BEDTIME [facility] Lisinopril (Prinivil) 5 mg PO DAILY [facility] Lorazepam (Ativan) 0.5 - 1 mg IV Q6H PRN PRN Reason: Nausea/Vomiting Mometasone Furoate/Formoterol Fumar (Dulera 200-5 Mcg) 0 puff IH DAILY PRN PRN Reason: Shortness of Breath Morphine Sulfate (Morphine) 2 mg IVPUSH Q2H PRN PRN Reason: Pain (severe 7-10) Multivitamins/Minerals (Thera M Plus) 1 tab PO DAILY [facility] Last Admin: 08/06/16 08:56 Dose: 1 tab Ondansetron HCl (Zofran Odt) 4 mg PO Q6H PRN PRN Reason: Nausea able to take PO Ondansetron HCl (Zofran) 4 mg IV Q4H PRN PRN Reason: Nausea/Vomiting Oxycodone HCl (Oxycodone) 5 mg PO Q4H PRN PRN Reason: Pain (moderate 4-6) Pantoprazole Sodium (Protonix) 40 mg PO ACBREAKFAST [facility] Last Admin: 08/06/16 07:52 Dose: 40 mg Potassium Chloride (Klor-Con M20) 20 meq PO DAILY [facility] Zolpidem Tartrate (Ambien) 5 mg PO BEDTIME PRN PRN Reason: Sleep Discontinued Medications Sodium Chloride (Normal Saline) 1,000 mls @ 150 mls/hr IV ASDIRECTED [facility] Last Admin: 08/05/16 20:38 Dose: 150 mls/hr *Q Meaningful Use (DIS) - VTE *Q VTE Criteria *Q: - Stroke *Q Stroke Criteria *Q: - AMI *Q AMI Criteria *Q:
[2016-08-06] MEDS ORDERED: Latanoprost 0.005% Ophth Soln 2.5 ML Bottle EYEBOTH SCH (21:00)
[2016-08-07] MEDS ORDERED: Potassium Chloride 20 MEQ Tab.ER PO SCH (09:00)
[2016-08-07] MEDS ORDERED: Hydrochlorothiazide 12.5 MG Cap PO SCH (09:00)
== END 2016-08-06 13:40 | disposition home or self-care (01) | DRG 312 ==
LOC: JP.ED 17:24 → JP.MS 22:22
PROVIDERS: ADMIT Hospitalist; ATTEND Hospitalist
DX: R55 Syncope and collapse (principal); R53.1 Weakness; I10 Essential (primary) hypertension; Z87.891 Personal history of nicotine dependence; H91.90 Unspecified hearing loss, unspecified ear; K21.9 Gastro-esophageal reflux disease without esophagitis; H40.9 Unspecified glaucoma; Z96.649 Presence of unspecified artificial hip joint; Z79.82 Long term (current) use of aspirin; Z88.8 Allergy status to other drugs, medicaments and biological substances
CPT/HCPCS: 36415; 70450; 80053; 81001; 82150; 83690; 83735; 84443; 84484; 85025; 93005; 99285 ×2; J7040; 71010; 71010-26; 80048; 93010; 97161-GP; A9270-GY

== ENCOUNTER 2016-10-17 12:51 | Emergency (ER) | payer MEDICARE, OTHER ==
[2016-10-17 15:03] VITALS: BP 175/72
--- NOTE | 2016-10-17 15:15 | EDM.PDOC ---
ED HPI GENERAL MEDICAL PROBLEM - General Chief Complaint: Headache Stated Complaint: HEADACHE VOMITING Time Seen by Provider: 10/17/16 14:00 Source of Information: Reports: Patient History Limitations: Reports: No Limitations - History of Present Illness INITIAL COMMENTS - FREE TEXT/NARRATIVE: 85-year-old female complaining of progressive weakness especially in the lower extremities, weight loss, and generalized malaise. She says the symptoms have been going on for weeks however she had an admission to the hospital after a near syncopal episode several months ago with the exact symptoms. Her blood work is been looking good, her thyroid is been checked and is normal, she did have a physical therapy consult and was improving but now feels like she is going backwards again. She used to do her own yard work but this summer she hasn 't been able to. She had one episode of emesis earlier today which is unusual. She's also been struggling with persistent headaches and is getting some eyedrop medication changes due to glaucoma and working with her eye doctor with this, she has a recheck on Tuesday. She had a tick bite on her right hip 2 months ago but it was a "regular tick". No resulting rash. Onset: Gradual, Unknown/Unsure (Symptoms have been ongoing for several weeks probably even months.) Severity: Mild Associated Symptoms: Reports: Headaches, Malaise, Nausea/Vomiting, Weakness. Denies: Confusion, Chest Pain, Cough, Diaphoresis, Fever/Chills, Shortness of Breath, Syncope head ache Pain Score (Numeric/FACES): 5 - Related Data Allergies Allergy/AdvReac Type Severity Reaction Status Date / Time cefatrizine [Cefatrizine] AdvReac Vomiting Verified 05/30/16 15:40 Home Meds: Home Meds Fluticasone/Salmeterol [Advair 500-50] 1 puff INH DAILY PRN 10/31/12 [History] Aspirin [Guero Chewable Aspirin] 81 mg PO DAILY 01/26/14 [History] Latanoprost [Xalatan 0.005% Ophth Soln] 1 drop EYEBOTH BEDTIME 01/26/14 [History ] Multivitamin with Minerals [Multiple Vitamin] 1 tab PO DAILY 01/26/14 [History] Omeprazole 20 mg PO DAILY 08/05/16 [History] Hydrochlorothiazide 12.5 mg PO DAILY cap 08/06/16 [Rx] Potassium Chloride [Klor-Con M20] 20 meq PO DAILY tab.er 08/06/16 [Rx] Albuterol Sulfate [Ventolin Hfa] 8 gm IH ASDIRECTED 10/17/16 [History] Dorzolamide [Trusopt 2% Ophth Soln] 1 drop EYELF BID 10/17/16 [History] Past Medical History HEENT History: Reports: Cataract, Glaucoma, Hard of Hearing Cardiovascular History: Reports: Arrhythmia, Hypertension Respiratory History: Reports: Asthma Gastrointestinal History: Reports: GERD, Other (See Below) 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 Psychiatric History: Reports: Depression Hematologic History: Reports: Blood Transfusion(s) - Infectious Disease History Infectious Disease History: Reports: Chicken Pox, Measles, Mumps, Scarlet Fever , Other (See Below) Other Infectious Disease History: states she has had hepatitis but does not know what kind. - Past Surgical History Head Surgeries/Procedures: Reports: None HEENT Surgical History: Reports: Cataract Surgery Musculoskeletal Surgical History: Reports: Arthroscopic Knee, Hip Replacement Social & Family History - Family History Family Medical History: Noncontributory Oncologic: Reports: Esophageal - Tobacco Use Smoking Status *Q: Never Smoker Years of Tobacco use: 20 Packs/Tins Daily: 1 Used Tobacco, but Quit: Yes Month Tobacco Last Used: january Second Hand Smoke Exposure: No - Caffeine Use Caffeine Use: Reports: Tea - Alcohol Use Days Per Week of Alcohol Use: 0 - Recreational Drug Use Recreational Drug Use: No - Living Situation & Occupation Living situation: Reports: Occupation: Retired (85 y/o female lives alone at her home on [address]. one son, lives in [place]) ED ROS GENERAL - Review of Systems Review Of Systems: See Below Constitutional: Reports: Malaise, Weakness, Weight Loss, Other (Despite headaches from glaucoma she's "sleeping fine".). Denies: Fever, Chills HEENT: Reports: Other (Glaucoma issues resulting in recurring headaches) Respiratory: Denies: Shortness of Breath, Cough Cardiovascular: Denies: Chest Pain, Palpitations Endocrine: Reports: Fatigue GI/Abdominal: Reports: Nausea, Vomiting (Nausea with one episode of emesis this morning). Denies: Abdominal Pain : Reports: No Symptoms Skin: Reports: No Symptoms Neurological: Reports: Headache, Difficulty Walking (Due to bilateral lower extremity weakness, chronic). Denies: Numbness, Paresthesia, Trouble Speaking Psychiatric: Reports: No Symptoms - Physical Exam Exam: See Below Exam Limited By: No Limitations General Appearance: Alert, No Apparent Distress Eye Exam: Bilateral Eye: EOMI, Other (No jaundice, good normal hydration) Throat/Mouth: Normal Inspection Head Exam: Atraumatic Neck: Supple, Non-Tender Respiratory/Chest: No Respiratory Distress, Lungs Clear Cardiovascular: Regular Rate, Rhythm GI/Abdominal: Soft, Non-Tender Neuro Exam (Abbreviated): Alert, Oriented, No Motor/Sensory Deficits Extremities: Other (Symmetric strength of the lower and upper extremities, no peripheral edema) Psychiatric: Flat Affect Skin Exam: Warm, Dry Course - Vital Signs Last Recorded V/S: Last Vital Signs Temp 98.3 F 10/17/16 13:52 Pulse 73 10/17/16 15:03 Resp 16 10/17/16 13:52 BP 175/72 H 10/17/16 15:03 Pulse Ox 95 10/17/16 15:03 - Orders/Labs/Meds Orders: Active Orders 24 hr Category Date Time Status Head wo Cont [CT] Stat Exams 10/17/16 14:09 Taken BABESIA MICROTI IGG AND IGM [REF] Stat Lab 10/17/16 14:15 Received EHRLICHIA CHAFFEENSIS, IGG&IGM [REF] Stat Lab 10/17/16 14:15 Received LYME AB SCREEN RFLX [REF] Stat Lab 10/17/16 14:15 Received Labs: Laboratory Tests 10/17/16 10/17/16 Range/Units 14:20 14:20 WBC 7.5 (4.5-11.0) K/uL RBC 4.04 (3.30-5.50) M/uL Hgb 12.2 (12.0-15.0) g/dL Hct 37.5 (36.0-48.0) % MCV 93 (80-98) fL MCH 30 (27-31) pg MCHC 33 (32-36) % Plt Count 225 (150-400) K/uL Neut % (Auto) 66 (36-66) % Lymph % (Auto) 17 L (24-44) % [place] % (Auto) 9 H (2-6) % Eos % (Auto) 7 H (2-4) % Baso % (Auto) 1 (0-1) % Sodium 142 (140-148) mmol/L Potassium 3.6 (3.6-5.2) mmol/L Chloride 107 (100-108) mmol/L Carbon Dioxide 31 (21-32) mmol/L Anion Gap 4.5 L (5.0-14.0) mmol/L BUN 12 D (7-18) mg/dL Creatinine 0.7 (0.6-1.0) mg/dL Est Cr Clr Drug Dosing 42.73 mL/min Estimated GFR (MDRD) > 60 (>60) Glucose 91 (74-106) mg/dL Calcium 8.6 (8.5-10.1) mg/dL Total Bilirubin 0.4 (0.2-1.0) mg/dL AST 21 (15-37) U/L ALT 23 (12-78) U/L Alkaline Phosphatase 122 H (46-116) U/L Total Protein 7.2 (6.4-8.2) g/dL Albumin 3.5 (3.4-5.0) g/dL Globulin 3.7 H (2.3-3.5) g/dL Albumin/Globulin Ratio 1.0 L (1.2-2.2) - Re-Assessments/Exams Free Text/Narrative Re-Assessment/Exam: 10/17/16 15:20 CBC and CMP were repeated from earlier this summer and are normal. UA and TSH were not repeated. Head CT was stable, no new evidence of stroke. 10/17/16 15:[address] was unremarkable and stable, CBC and CMP were normal. Lines, ehrlichiosis and babesiosis were added to the testing. I asked the patient to recheck with Dr. Traylor later this week to discuss consultation to a geriatric physician or neurologist. Departure - Departure Time of Disposition: 15:46 Disposition: Home, Self-Care 01 Condition: Fair Clinical Impression: Weakness generalized Headache Qualifiers: Headache type: unspecified Headache chronicity pattern: episodic headache Intractability: not intractable Qualified Code(s): R51 - Headache - Discharge Information Instructions: Weakness, [id number] Referrals: Ricky Traylor MD [Primary Care Provider] - Forms: ED Department Discharge Care Plan Goals: Continue your current medications and increase activity as tolerated if possible. Recheck with Dr. Traylor next week to discuss any possible referrals necessary. - My Orders Last 24 Hours: My Active Orders 10/17/16 14:09 Head wo Cont [CT] Stat 10/17/16 14:15 BABESIA MICROTI IGG AND IGM [REF] Stat EHRLICHIA CHAFFEENSIS, IGG&IGM [REF] Stat LYME AB SCREEN RFLX [REF] Stat - Assessment/Plan Last 24 Hours: My Active Orders 10/17/16 14:09 Head wo Cont [CT] Stat 10/17/16 14:15 BABESIA MICROTI IGG AND IGM [REF] Stat EHRLICHIA CHAFFEENSIS, IGG&IGM [REF] Stat LYME AB SCREEN RFLX [REF] Stat
== END 2016-10-17 15:47 | disposition home or self-care (01) ==
LOC: JP.ED 12:51
DX: R53.1 Weakness (principal); R51 Headache; I10 Essential (primary) hypertension; J45.909 Unspecified asthma, uncomplicated; K21.9 Gastro-esophageal reflux disease without esophagitis; F32.9 Major depressive disorder, single episode, unspecified; Z98.49 Cataract extraction status, unspecified eye; Z79.899 Other long term (current) drug therapy; Z79.82 Long term (current) use of aspirin; Z88.8 Allergy status to other drugs, medicaments and biological substances
CPT/HCPCS: 36415; 70450; 80053; 85025; 86618; 86666; 86666-59; 86753; 99284; 99285-25

== ENCOUNTER 2017-03-01 09:11 | Emergency (ER) | payer MEDICARE, OTHER ==
[2017-03-01] MEDS ORDERED: Hydrochlorothiazide 12.5 MG Cap PO STA (09:28)
--- NOTE | 2017-03-01 09:49 | EDM.PDOC ---
ED HPI GENERAL MEDICAL PROBLEM - General Chief Complaint: General Stated Complaint: HAD A CT;FEELS WEAK Time Seen by Provider: 03/01/17 09:44 Source of Information: Reports: Patient, Old Records History Limitations: Reports: No Limitations - History of Present Illness INITIAL COMMENTS - FREE TEXT/NARRATIVE: 86 yo female had an abdominal CT scan this morning ordered by Dr. Traylor for increased pain, gas, and abnormal stool shape. Had colonoscopy 3 yrs ago per patient that was unremarkable. Today's CT showed nothing acute. She was NPO today before her scan so didn't take any of her meds. Her last BP in the clinic was in the 140's systolic. Her last blood work in the clinic was in late 02/06. After her scan today and on her way to her car she became weak in the legs and says she "didn't feel well" so she decided to come to the ER. Onset: Today Onset Date: 03/01/17 Onset Time: 09:00 Duration: Minutes:, Constant Location: Reports: Generalized Quality: Reports: Other (no current pain) Severity: Mild Improves with: Reports: Rest Worsens with: Reports: Movement Context: Reports: Other (Had CT scan of abdomen this morning and was NPO before) Associated Symptoms: Reports: Weakness. 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: Other (see below) (none) - Related Data Allergies Allergy/AdvReac Type Severity Reaction Status Date / Time cefatrizine [Cefatrizine] AdvReac Vomiting Verified 05/30/16 15:40 Home Meds: Home Meds Fluticasone/Salmeterol [Advair 500-50] 1 puff INH DAILY PRN 10/31/12 [History] Aspirin [Guero Chewable Aspirin] 81 mg PO DAILY 01/26/14 [History] Latanoprost [Xalatan 0.005% Ophth Soln] 1 drop EYEBOTH BEDTIME 01/26/14 [History ] Multivitamin with Minerals [Multiple Vitamin] 1 tab PO DAILY 01/26/14 [History] Omeprazole 20 mg PO DAILY 08/05/16 [History] Hydrochlorothiazide 12.5 mg PO DAILY cap 08/06/16 [Rx] Albuterol Sulfate [Ventolin Hfa] 8 gm IH ASDIRECTED 10/17/16 [History] Dorzolamide [Trusopt 2% Ophth Soln] 1 drop EYELF BID 10/17/16 [History] Albuterol Sulfate [Proair Hfa] 2 puff INH Q4H PRN 03/01/17 [History] Bisacodyl [Dulcolax] 10 mg RECTAL ASDIRECTED PRN 03/01/17 [History] Calcium Carbonate [Calcium] 500 mg PO DAILY 03/01/17 [History] Polyethylene Glycol 3350 [MiraLAX] 8.5 g PO DAILY PRN 03/01/17 [History] Triamcinolone Acetonide [Triamcinolone Acetonide 0.1% Crm] 1 appful TOP BID 11/08 [History] Past Medical History HEENT History: Reports: Cataract, Glaucoma, Hard of Hearing Cardiovascular History: Reports: Arrhythmia, Hypertension Respiratory History: Reports: Asthma Gastrointestinal History: Reports: GERD, Other (See Below) 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 Psychiatric History: Reports: Depression Hematologic History: Reports: Blood Transfusion(s) - Infectious Disease History Infectious Disease History: Reports: Chicken Pox, Measles, Mumps, Scarlet Fever , Other (See Below) Other Infectious Disease History: states she has had hepatitis but does not know what kind. - Past Surgical History Head Surgeries/Procedures: Reports: None HEENT Surgical History: Reports: Cataract Surgery Musculoskeletal Surgical History: Reports: Arthroscopic Knee, Hip Replacement Social & Family History - Family History Family Medical History: Noncontributory Oncologic: Reports: Esophageal - Tobacco Use Smoking Status *Q: Never Smoker Years of Tobacco use: 20 Packs/Tins Daily: 1 Used Tobacco, but Quit: Yes Month Tobacco Last Used: january Second Hand Smoke Exposure: No - Caffeine Use Caffeine Use: Reports: Coffee - Alcohol Use Days Per Week of Alcohol Use: 0 - Recreational Drug Use Recreational Drug Use: No - Living Situation & Occupation Living situation: Reports: Occupation: Retired (85 y/o female lives alone at her home on [facility]. one son, lives in [place]) ED ROS GENERAL - Review of Systems Review Of Systems: See Below Constitutional: Reports: Weakness HEENT: Reports: No Symptoms Respiratory: Reports: No Symptoms Cardiovascular: Reports: No Symptoms Endocrine: Reports: No Symptoms GI/Abdominal: Reports: No Symptoms : Reports: No Symptoms Musculoskeletal: Reports: No Symptoms Skin: Reports: No Symptoms Neurological: Reports: No Symptoms Psychiatric: Reports: Anxiety ED EXAM, GENERAL - Physical Exam Exam: See Below Exam Limited By: No Limitations General Appearance: Alert, WD/WN, No Apparent Distress Eye Exam: Bilateral Eye: Normal Inspection Ears: Normal External Exam, Normal Canal, Hearing Grossly Normal Ear Exam: Bilateral Ear: Auricle Normal, Canal Normal Nose: Normal Inspection, Normal Mucosa, No Blood Throat/Mouth: Normal Inspection, Normal Lips, Normal Oropharynx, Normal Voice, No Airway Compromise Head: Atraumatic, Normocephalic Neck: Normal Inspection, Supple, Non-Tender Respiratory/Chest: No Respiratory Distress, Lungs Clear, Normal Breath Sounds, No Accessory Muscle Use Cardiovascular: Regular Rate, Rhythm, No Edema Back Exam: Normal Inspection. No: CVA Tenderness (R), CVA Tenderness (L) Extremities: Normal Inspection, Normal Range of Motion, Non-Tender, No Pedal Edema Neurological: Alert, Oriented, CN II-XII Intact, Normal Cognition, No Motor/ Sensory Deficits Psychiatric: Normal Affect, Normal Mood Skin Exam: Warm, Dry, Intact, Normal Color, No Rash Lymphatic: No Adenopathy Course - Vital Signs Text/Narrative:: Was fed breakfast, given KCL 40 meq po, Lisinopril 20 mg po-feels a little better, hospital here if full, does not want to go to [place]. Last Recorded V/S: Last Vital Signs Temp 35.7 C 03/01/17 09:20 Pulse 80 03/01/17 09:20 Resp 16 03/01/17 09:20 BP 189/84 H 03/01/17 10:34 Pulse Ox 99 03/01/17 09:20 - Orders/Labs/Meds Orders: Active Orders 24 hr Category Date Time Status Hemoccult [Fecal Occult Blood Collection] [RC] Care 03/01/17 10:00 Active ASDIRECTED Orthostatic Vital Signs [RC] ASDIRECTED Care 03/01/17 10:31 Active Labs: Laboratory Tests 03/01/17 03/01/17 03/01/17 Range/Units 09:50 09:50 09:50 WBC 5.8 (4.5-11.0) K/uL RBC 4.03 (3.30-5.50) M/uL Hgb 12.2 (12.0-15.0) g/dL Hct 37.1 (36.0-48.0) % MCV 92 (80-98) fL MCH 30 (27-31) pg MCHC 33 (32-36) % Plt Count 241 (150-400) K/uL Sodium 142 (140-148) mmol/L Potassium 3.2 L (3.6-5.2) mmol/L Chloride 103 (100-108) mmol/L Carbon Dioxide 27 (21-32) mmol/L Anion Gap 15.2 H (5.0-14.0) mmol/L BUN 11 (7-18) mg/dL Creatinine 0.7 (0.6-1.0) mg/dL Est Cr Clr Drug Dosing 41.92 mL/min Estimated GFR (MDRD) > 60 (>60) Glucose 92 (74-106) mg/dL Calcium 8.7 (8.5-10.1) mg/dL Magnesium (1.8-2.4) mg/dL Troponin I < 0.017 (0.000-0.056) ng/mL Urine Color Urine Appearance Urine pH (4.5-8.0) Ur Specific Mcgrath (1.008-1.030) Urine Protein (NEGATIVE) mg/dL Urine Glucose (UA) (NEGATIVE) mg/dL Urine Ketones (NEGATIVE) mg/dL Urine Occult Blood (NEGATIVE) Urine Nitrite (NEGATIVE) Urine Bilirubin (NEGATIVE) Urine Urobilinogen (NORMAL) mg/dL Ur Leukocyte Esterase (NEGATIVE) Urine RBC (0-5) Urine WBC (0-5) Ur Epithelial Cells Amorphous Sediment Urine Bacteria Urine Mucus 03/01/17 03/01/17 Range/Units 10:07 10:26 WBC (4.5-11.0) K/uL RBC (3.30-5.50) M/uL Hgb (12.0-15.0) g/dL Hct (36.0-48.0) % MCV (80-98) fL MCH (27-31) pg MCHC (32-36) % Plt Count (150-400) K/uL Sodium (140-148) mmol/L Potassium (3.6-5.2) mmol/L Chloride (100-108) mmol/L Carbon Dioxide (21-32) mmol/L Anion Gap (5.0-14.0) mmol/L BUN (7-18) mg/dL Creatinine (0.6-1.0) mg/dL Est Cr Clr Drug Dosing mL/min Estimated GFR (MDRD) (>60) Glucose (74-106) mg/dL Calcium (8.5-10.1) mg/dL Magnesium 2.1 (1.8-2.4) mg/dL Troponin I (0.000-0.056) ng/mL Urine Color Yellow Urine Appearance Clear Urine pH 7.0 (4.5-8.0) Ur Specific Mcgrath 1.010 (1.008-1.030) Urine Protein Negative (NEGATIVE) mg/dL Urine Glucose (UA) Normal (NEGATIVE) mg/dL Urine Ketones Negative (NEGATIVE) mg/dL Urine Occult Blood Negative (NEGATIVE) Urine Nitrite Negative (NEGATIVE) Urine Bilirubin Negative (NEGATIVE) Urine Urobilinogen Normal (NORMAL) mg/dL Ur Leukocyte Esterase Negative (NEGATIVE) Urine RBC Not seen (0-5) Urine WBC Not seen (0-5) Ur Epithelial Cells Rare Amorphous Sediment Not seen Urine Bacteria Not seen Urine Mucus Not seen Meds: Medications Discontinued Medications Generic Name Dose Route Start Last Admin Trade Name Freq PRN Reason Stop Dose Admin Hydrochlorothiazide 12.5 mg 03/01/17 09:28 03/01/17 09:41 Hydrochlorothiazide PO 03/01/17 09:29 12.5 mg NOW STA Administration Lisinopril 20 mg 03/01/17 10:27 03/01/17 10:34 Prinivil PO 03/01/17 10:28 20 mg ONETIME ONE Administration Potassium Chloride 40 meq 03/01/17 10:26 03/01/17 10:34 Klor-Con M20 PO 03/01/17 10:27 40 meq ONETIME ONE Administration Departure - Departure Time of Disposition: 11:35 Disposition: Home, Self-Care 01 Condition: Fair Clinical Impression: Hypokalemia, Weakness generalized HTN (hypertension) Qualifiers: Hypertension type: unspecified Qualified Code(s): I10 - Essential (primary) hypertension - Discharge Information Referrals: Ricky Traylor MD [Primary Care Provider] - Forms: ED Department Discharge - My Orders Last 24 Hours: My Active Orders 03/01/17 10:00 Hemoccult [Fecal Occult Blood Collection] [RC] ASDIRECTED 03/01/17 10:31 Orthostatic Vital Signs [RC] ASDIRECTED - Assessment/Plan Last 24 Hours: My Active Orders 03/01/17 10:00 Hemoccult [Fecal Occult Blood Collection] [RC] ASDIRECTED 03/01/17 10:31 Orthostatic Vital Signs [RC] ASDIRECTED
[2017-03-01] MEDS ORDERED: Potassium Chloride 20 MEQ Tab.ER PO ONE (10:26)
[2017-03-01] MEDS ORDERED: Lisinopril 10 MG Tab PO ONE (10:27)
[2017-03-01 10:39] VITALS: BP 189/84
== END 2017-03-01 12:07 | disposition home or self-care (01) ==
LOC: JP.ED 09:11
DX: E87.6 Hypokalemia (principal); I10 Essential (primary) hypertension; J45.909 Unspecified asthma, uncomplicated; K21.9 Gastro-esophageal reflux disease without esophagitis; F32.9 Major depressive disorder, single episode, unspecified; Z87.891 Personal history of nicotine dependence; Z79.82 Long term (current) use of aspirin; Z79.899 Other long term (current) drug therapy; Z88.1 Allergy status to other antibiotic agents; R10.32 Left lower quadrant pain; K40.90 Unilateral inguinal hernia, without obstruction or gangrene, not specified as recurrent
CPT/HCPCS: 36415; 80048; 81001; 82272; 83735; 84484; 85027; 99283; 99284; A9270; 74177; 74177-26; J7030; Q9967

== ENCOUNTER 2017-03-06 20:24 | Emergency (ER) | payer MEDICARE, OTHER ==
[2017-03-06 20:31] VITALS: BP 116/80
--- NOTE | 2017-03-06 22:21 | EDM.PDOC ---
ED HPI GENERAL MEDICAL PROBLEM - General Chief Complaint: Gastrointestinal Problem Stated Complaint: ABDOMINAL PAIN Time Seen by Provider: 03/06/17 20:40 Source of Information: Reports: Patient History Limitations: Reports: No Limitations - History of Present Illness INITIAL COMMENTS - FREE TEXT/NARRATIVE: 86-year-old female with ongoing abdominal complaints, irregular bowel movements and "gas". She also has periods of weakness. She has a sigmoidoscopy scheduled in 2 days, recently had a CT scan and a complete workup with blood tests that were normal. No fevers or chills. No nausea or vomiting. Decreased appetite and some weight loss according to the patient. No chest pain or shortness of breath , no rash. Onset: Unknown/Unsure Duration: Week(s): (Symptoms have been waxing and waning for months) Associated Symptoms: Reports: Loss of Appetite, Malaise, Weakness. Denies: Fever/Chills, Headaches, Shortness of Breath abdomen Pain Score (Numeric/FACES): 4 - Related Data Allergies Allergy/AdvReac Type Severity Reaction Status Date / Time cefatrizine [Cefatrizine] AdvReac Vomiting Verified 03/06/17 20:48 Home Meds: Home Meds Fluticasone/Salmeterol [Advair 500-50] 1 puff INH DAILY PRN 10/31/12 [History] Aspirin [Guero Chewable Aspirin] 81 mg PO DAILY 01/26/14 [History] Latanoprost [Xalatan 0.005% Ophth Soln] 1 drop EYEBOTH BEDTIME 01/26/14 [History ] Multivitamin with Minerals [Multiple Vitamin] 1 tab PO DAILY 01/26/14 [History] Omeprazole 20 mg PO DAILY 08/05/16 [History] Hydrochlorothiazide 12.5 mg PO DAILY cap 08/06/16 [Rx] Albuterol Sulfate [Ventolin Hfa] 8 gm IH ASDIRECTED PRN 10/17/16 [History] Dorzolamide [Trusopt 2% Ophth Soln] 1 drop EYELF BID 10/17/16 [History] Albuterol Sulfate [Proair Hfa] 2 puff INH Q4H PRN 03/01/17 [History] Calcium Carbonate [Calcium] 500 mg PO DAILY 03/01/17 [History] Lisinopril 20 mg PO DAILY #30 tablet 03/01/17 [Rx] Polyethylene Glycol 3350 [MiraLAX] 8.5 g PO DAILY PRN 03/01/17 [History] Triamcinolone Acetonide [Triamcinolone Acetonide 0.1% Crm] 1 appful TOP BID 11/08 [History] Past Medical History HEENT History: Reports: Cataract, Glaucoma, Hard of Hearing Cardiovascular History: Reports: Arrhythmia, Hypertension Respiratory History: Reports: Asthma Gastrointestinal History: Reports: GERD, Other (See Below) 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 Psychiatric History: Reports: Depression Hematologic History: Reports: Blood Transfusion(s) Immunologic History: Reports: Other (See Below) Other Immunologic History: hepatitis - Infectious Disease History Infectious Disease History: Reports: C-Difficile, Measles, Mumps, Shingles Other Infectious Disease History: states she has had hepatitis but does not know what kind. 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, replaced with cadaver bone with orthopedic appliances Musculoskeletal Surgical History: Reports: Arthroscopic Knee, Hip Replacement Social & Family History - Family History Family Medical History: Noncontributory Oncologic: Reports: Esophageal - Tobacco Use Smoking Status *Q: Never Smoker Years of Tobacco use: 20 Packs/Tins Daily: 1 Used Tobacco, but Quit: Yes Month Tobacco Last Used: january Second Hand Smoke Exposure: No - Caffeine Use Caffeine Use: Reports: Coffee - Alcohol Use Days Per Week of Alcohol Use: 0 - Recreational Drug Use Recreational Drug Use: No - Living Situation & Occupation Living situation: Reports: Occupation: Retired (85 y/o female lives alone at her home on [address]. one son, lives in [place]) ED ROS GENERAL - Review of Systems Review Of Systems: See Below Constitutional: Reports: Malaise. Denies: Fever, Chills Respiratory: Denies: Shortness of Breath Cardiovascular: Denies: Chest Pain GI/Abdominal: Reports: Abdominal Pain, Nausea. Denies: Vomiting : Reports: No Symptoms Skin: Reports: No Symptoms Neurological: Reports: No Symptoms Psychiatric: Reports: Anxiety ED EXAM, GI/ABD - Physical Exam Exam: See Below Exam Limited By: No Limitations General Appearance: Alert, No Apparent Distress Eyes: Bilateral: Normal Appearance Head: Atraumatic Respiratory/Chest: No Respiratory Distress, Lungs Clear Cardiovascular: Regular Rate, Rhythm GI/Abdominal Exam: Normal Bowel Sounds, Soft, Other (Reacts with discomfort to palpation across the lower abdomen but no focal guarding or rebound) Course - Vital Signs Last Recorded V/S: Last Vital Signs Temp 97.8 F 03/06/17 20:30 Pulse 56 L 03/06/17 20:30 Resp 16 03/06/17 20:30 BP 116/80 03/06/17 20:30 Pulse Ox 93 L 03/06/17 20:30 - Orders/Labs/Meds Labs: Laboratory Tests 03/06/17 03/06/17 Range/Units 21:35 21:35 ESR 26 H (0-25) mm/hr C-Reactive Protein 0.02 (0.0-0.3) mg/dL TSH, Ultra Sensitive 0.962 (0.358-3.740) uIU/mL - Re-Assessments/Exams Free Text/Narrative Re-Assessment/Exam: 03/07/17 00:19 Reviewed her records, no repeat examinations are needed. A CRP, sedimentation rate and TSH were obtained and are all reassuring. Explaining this to the patient and encouraged her to get her sigmoidoscopy as scheduled but no further treatment needed at this time. I suspect this patient has some type of irritable bowel syndrome and she was given information regarding this diagnosis. Departure - Departure Time of Disposition: 22:57 Disposition: Home, Self-Care 01 Condition: Good Clinical Impression: Irritable bowel syndrome (IBS) Qualifiers: Irritable bowel syndrome type: unspecified Qualified Code(s): K58.9 - Irritable bowel syndrome without diarrhea - Discharge Information Instructions: Irritable Bowel Syndrome, Adult Referrals: Ricky Traylor MD [Primary Care Provider] - Forms: ED Department Discharge Care Plan Goals: It's okay to have a glass of wine at bedtime. A normal balanced diet is important. Recheck with Dr. Traylor after your procedure on Tuesday.
== END 2017-03-06 22:45 | disposition home or self-care (01) ==
LOC: JP.ED 20:24
DX: K58.9 Irritable bowel syndrome, unspecified (principal); Z88.8 Allergy status to other drugs, medicaments and biological substances; Z79.82 Long term (current) use of aspirin; I10 Essential (primary) hypertension; K21.9 Gastro-esophageal reflux disease without esophagitis
CPT/HCPCS: 36415; 84443; 85651; 86140; 99283; 99284

== ENCOUNTER 2017-03-08 05:23 | Day surgery (SDC) | payer MEDICARE, OTHER ==
[2017-03-08] MEDS ORDERED: Dextrose 5%-Lactated Ringers 1,000 ML IV SCH (05:30)
[2017-03-08] MEDS ORDERED: Sodium Phosphate,Monobasic/Sodium Phosphate,Dibasic Enema 133 ML Bottle RECTAL ONE (05:30)
[2017-03-08 10:07] VITALS: BP 155/55
--- NOTE | 2017-03-09 16:41 | OR ---
DATE OF PROCEDURE: 03/08/2017 PREOPERATIVE DIAGNOSIS: Lower abdominal pain with history of narrow stools. POSTOPERATIVE DIAGNOSIS: Normal flexible sigmoidoscopy to junction of descending colon and sigmoid colon. OPERATIVE PROCEDURE: Flexible sigmoidoscopy. ANESTHESIA: IV sedation. INDICATION FOR PROCEDURE: This is an 86-year-old female presenting with a change in bowel habits along with some mid and lower abdominal pain. She notes that her stools have become quite narrow. She was felt not to have the tolerance or social support for a full colonoscopy prep. So, Dr. Traylor elected to proceed with a flexible sigmoidoscopy, which certainly would evaluate the area of the colon that might account for some narrow stools. The patient received 2 saline enemas preoperatively and is to undergo flexible sigmoidoscopy with biopsies and/or polypectomy as indicated. Potential risks including bleeding and perforation were discussed with the patient, and she wishes to proceed. DETAILS OF PROCEDURE: The patient was taken to the operating room and placed in a left lateral decubitus position. IV sedation was administered, after which the initial digital rectal exam was performed and was unremarkable. The endoscope was passed into the rectum and retroflexion revealed uncomplicated hemorrhoidal columns. There was some stool remaining, but in general, there was a very satisfactory visualization of the entire rectum and colon up to 45 cm, which appeared to be more or less the junction of the descending and sigmoid colons. To that level, no abnormalities were noted and, certainly, there were no areas of colitis or narrowing, and no signs of neoplasia. No diverticula were noted. The scope was then withdrawn, the above findings were reconfirmed, and the procedure concluded. The patient was taken to the recovery room in a satisfactory condition. The patient will be set up for followup with Dr. Traylor in [facility] in 2 to 3 weeks. She did make some dietary changes recently, which she seems to think is helping with her abdominal pain. Jun Radford MD /[id number]
== END 2017-03-08 10:35 | disposition home or self-care (01) ==
LOC: JP.SDS 05:23
PROVIDERS: ATTEND Surgery
DX: R10.30 Lower abdominal pain, unspecified (principal); R19.5 Other fecal abnormalities; K21.9 Gastro-esophageal reflux disease without esophagitis; J45.909 Unspecified asthma, uncomplicated; Z88.1 Allergy status to other antibiotic agents; Z88.2 Allergy status to sulfonamides
CPT/HCPCS: 45330; J7042

== ENCOUNTER 2017-03-14 19:02 | Observation (INO) | payer MEDICARE, OTHER ==
[2017-03-14] MEDS ORDERED: Budesonide 0.5 MG/2 ML Neb Susp NEB ONE (19:48)
[2017-03-14] MEDS ORDERED: Albuterol 0.083% 2.5 MG/3 ML Neb Soln NEB ONE (19:48)
--- NOTE | 2017-03-14 19:50 | EDM.PDOC ---
ED HPI GENERAL MEDICAL PROBLEM - General Chief Complaint: Respiratory Problem Stated Complaint: RESPIRATORY Time Seen by Provider: 03/14/17 19:35 Source of Information: Reports: Patient, Old Records, RN Notes Reviewed History Limitations: Reports: No Limitations - History of Present Illness INITIAL COMMENTS - FREE TEXT/NARRATIVE: brought in by a neighbor Chief complaint Cough, difficulty breathing, concerned she might have pneumonia History of present illness 86-year-old female who lives on her own home in a house heated by electrical heat and woodstove History of asthma but she hasn't used her nebulizers for some time until this last few days. Recently had colonoscopy done 5 days ago, seen in emergency for abdominal painabout 7 days ago. Cough and congestion started 3 days ago, seen in the clinic that same day and prescribed Augmentin She's been having coughing spells, sometime she can bring up some phlegm but it so stringy she has a hard time bringing up, she sometimes is choking can hardly catch her breath with her coughing spells. Using her albuterol by nebulizer without significant help. No fever or chills No chest pain Remote history of smoking, quitting over 20 years ago. Upper Abdomen Pain Score (Numeric/FACES): 3 - Related Data Allergies Allergy/AdvReac Type Severity Reaction Status Date / Time cefdinir Allergy Nausea and Verified 03/14/17 19:13 Vomiting ciprofloxacin Allergy Joint Pain Verified 03/14/17 19:13 fluconazole Allergy Other Verified 03/14/17 19:13 levofloxacin Allergy Joint Pain Verified 03/14/17 19:13 Sulfa (Sulfonamide Allergy Other Verified 03/14/17 19:13 Antibiotics) cefatrizine [Cefatrizine] AdvReac Vomiting Verified 03/14/17 19:13 Home Meds: Home Meds Fluticasone/Salmeterol [Advair 500-50] 1 puff INH BID PRN 10/31/12 [History] Aspirin [Guero Chewable Aspirin] 81 mg PO DAILY 01/26/14 [History] Latanoprost [Xalatan 0.005% Ophth Soln] 1 drop EYEBOTH BEDTIME 01/26/14 [History ] Multivitamin with Minerals [Multiple Vitamin] 1 tab PO DAILY 01/26/14 [History] Omeprazole 20 mg PO DAILY 08/05/16 [History] Hydrochlorothiazide 12.5 mg PO DAILY cap 08/06/16 [Rx] Albuterol Sulfate [Ventolin Hfa] 8 gm IH ASDIRECTED PRN 10/17/16 [History] Dorzolamide [Trusopt 2% Ophth Soln] 1 drop EYELF BID 10/17/16 [History] Albuterol Sulfate [Proair Hfa] 2 puff INH Q4H PRN 03/01/17 [History] Calcium Carbonate [Calcium] 500 mg PO DAILY 03/01/17 [History] Polyethylene Glycol 3350 [MiraLAX] 8.5 g PO DAILY PRN 03/01/17 [History] Triamcinolone Acetonide [Triamcinolone Acetonide 0.1% Crm] 1 appful TOP BID 11/08 [History] Potassium Chloride 10 meq PO DAILY 03/08/17 [History] Amoxicillin/Clavulanate K [Augmentin 875-125 MG] 1 tab PO DAILY 03/14/17 [ History] Past Medical History HEENT History: Reports: Cataract, Glaucoma, Hard of Hearing Cardiovascular History: Reports: Arrhythmia, Hypertension, Other (See Below) Other Cardiovascular History: mitral valve prolapse Respiratory History: Reports: Asthma, Pneumonia, Recurrent Gastrointestinal History: Reports: GERD, Other (See Below) 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 Psychiatric History: Reports: Depression Hematologic History: Reports: Blood Transfusion(s) Immunologic History: Reports: Other (See Below) Other Immunologic History: hepatitis - Infectious Disease History Infectious Disease History: Reports: C-Difficile, Measles, Mumps, Shingles Other Infectious Disease History: states she has had hepatitis but does not know what kind. 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, replaced with cadaver bone with orthopedic appliances Musculoskeletal Surgical History: Reports: Arthroscopic Knee, Hip Replacement Social & Family History - Family History Family Medical History: Noncontributory Oncologic: Reports: Esophageal - Tobacco Use Smoking Status *Q: Never Smoker Years of Tobacco use: 20 Packs/Tins Daily: 1 Used Tobacco, but Quit: Yes Month Tobacco Last Used: February Second Hand Smoke Exposure: No - Caffeine Use Caffeine Use: Reports: None - Alcohol Use Days Per Week of Alcohol Use: 0 - Recreational Drug Use Recreational Drug Use: No - Living Situation & Occupation Living situation: Reports: Occupation: Retired (85 y/o female lives alone at her home on [address]. one son, lives in [place]) ED ROS GENERAL - Review of Systems Review Of Systems: See Below Constitutional: Reports: Malaise, Weakness, Fatigue, Decreased Appetite. Denies : Fever, Chills HEENT: Reports: Other (hoarse voice). Denies: Eye Pain, Rhinitis, Throat Pain Respiratory: Reports: Shortness of Breath, Wheezing, Cough, Sputum (occasional, thick/stringy). Denies: Pleuritic Chest Pain Cardiovascular: Reports: No Symptoms Endocrine: Reports: Fatigue GI/Abdominal: Reports: No Symptoms : Reports: No Symptoms Musculoskeletal: Reports: No Symptoms Skin: Reports: No Symptoms Neurological: Reports: Weakness. Denies: Trouble Speaking, Difficulty Walking Hematologic/Lymphatic: Reports: No Symptoms Immunologic: Reports: Other (prior history of pneumonia) ED EXAM, GENERAL - Physical Exam Exam: See Below Exam Limited By: No Limitations General Appearance: Alert, Anxious, Mild Distress, Other (she looks tired, blood pressure elevated but other vital signs normal including saturation, color normal) Eye Exam: Bilateral Eye: Normal Inspection Ears: Normal External Exam, Normal Canal, Hearing Grossly Normal, Normal TMs Nose: Normal Inspection, Normal Mucosa Throat/Mouth: Normal Inspection, Normal Oropharynx, Other (hoarse voice) Head: Atraumatic Neck: Normal Inspection, Supple, Tender Lateral (on left side of neck, no masses ). No: Lymphadenopathy (R), Lymphadenopathy (L) Respiratory/Chest: Chest Non-Tender, Rhonchi, Wheezing, Accessory Muscle Use ( when coughing), Prolonged Expiration, Other (during a coughing spell she becomes quite short of breath and wheezy and quite red in the face). No: Decreased Breath Sounds, Stridor, Retractions Cardiovascular: Normal Peripheral Pulses, Regular Rate, Rhythm, No Edema GI/Abdominal: Non-Tender Extremities: Non-Tender, No Pedal Edema Neurological: Alert, Oriented, No Motor/Sensory Deficits Skin Exam: Warm, Dry, Normal Color, No Rash Course - Vital Signs Last Recorded V/S: Last Vital Signs Temp 36.4 C 03/14/17 19:18 Pulse 73 03/14/17 20:34 Resp 20 03/14/17 19:18 BP 163/66 H 03/14/17 20:34 Pulse Ox 98 03/14/17 20:34 - Orders/Labs/Meds Orders: Active Orders 24 hr Category Date Time Status RT Aerosol Therapy [RC] ASDIRECTED Care 03/14/17 19:49 Active Chest 2V [CR] Stat Exams 03/14/17 19:48 Taken Labs: Laboratory Tests 03/14/17 03/14/17 Range/Units 19:48 19:48 WBC 4.7 (4.5-11.0) K/uL RBC 4.06 (3.30-5.50) M/uL Hgb 12.0 (12.0-15.0) g/dL Hct 37.0 (36.0-48.0) % MCV 91 (80-98) fL MCH 30 (27-31) pg MCHC 32 (32-36) % Plt Count 214 (150-400) K/uL Sodium 141 (140-148) mmol/L Potassium 3.1 L (3.6-5.2) mmol/L Chloride 102 (100-108) mmol/L Carbon Dioxide 30 (21-32) mmol/L Anion Gap 12.1 (5.0-14.0) mmol/L BUN 15 (7-18) mg/dL Creatinine 0.7 (0.6-1.0) mg/dL Est Cr Clr Drug Dosing 41.92 mL/min Estimated GFR (MDRD) > 60 (>60) Glucose 98 (74-106) mg/dL Calcium 9.2 (8.5-10.1) mg/dL Meds: Medications Discontinued Medications Generic Name Dose Route Start Last Admin Trade Name Freq PRN Reason Stop Dose Admin Albuterol 2.5 mg 03/14/17 19:48 03/14/17 19:59 Proventil Neb Soln NEB 03/14/17 19:49 2.5 mg ONETIME ONE Administration Budesonide 0.5 mg 03/14/17 19:48 03/14/17 19:59 Pulmicort NEB 03/14/17 19:49 0.5 mg ONETIME ONE Administration - Re-Assessments/Exams Free Text/Narrative Re-Assessment/Exam: 03/14/17 19:58 86-year-old female with cough for 3 days, wheezing. No fever or chest pain. Becomes quite short of breath with her coughing jags, considerable bronchospasm although her saturation is normal Differential diagnosis includes viral respiratory infection, pneumonia, bronchitis 03/14/17 20:37 CBC normal, electrolytes normal Chest x-ray negative for pneumonia by my interpretation but does show some hyperinflation She notes improvement with albuterol and budesonide by nebulizer Repeat examination does show considerable wheezing still present but she is a bit more relaxed. Assessment Bronchitis with bronchospasm Exacerbation mild intermittent asthma Plan overnight observation admission, nebulizers, and oral steroids Prednisone 40 mg by mouth Departure - Departure Time of Disposition: 20:39 Disposition: Refer to Observation Condition: Fair Clinical Impression: Mild intermittent asthma with exacerbation Bronchitis, acute Qualifiers: Bronchitis organism: unspecified organism Qualified Code(s): J20.9 - Acute bronchitis, unspecified - Discharge Information Referrals: Ricky Traylor MD [Primary Care Provider] - - My Orders Last 24 Hours: My Active Orders 03/14/17 19:48 Chest 2V [CR] Stat 03/14/17 19:49 RT Aerosol Therapy [RC] ASDIRECTED - Assessment/Plan Last 24 Hours: My Active Orders 03/14/17 19:48 Chest 2V [CR] Stat 03/14/17 19:49 RT Aerosol Therapy [RC] ASDIRECTED
[2017-03-14] MEDS ORDERED: predniSONE 20 MG Tab PO ONE (20:39)
[2017-03-14] MEDS ORDERED: Ondansetron 4 MG/2 ML SDV IV PRN (22:09)
[2017-03-14] MEDS ORDERED: Ondansetron 4 MG Tab.DIS PO PRN (22:09)
[2017-03-14] MEDS ORDERED: Morphine 2 MG/ML Syringe IVPUSH PRN (22:09)
[2017-03-14] MEDS ORDERED: oxyCODONE 5 MG Tab PO PRN (22:09)
[2017-03-14] MEDS ORDERED: Albuterol 0.083% 2.5 MG/3 ML Neb Soln NEB PRN (22:09)
[2017-03-14] MEDS ORDERED: Acetaminophen 325 MG Tab PO PRN (22:09)
[2017-03-14] MEDS ORDERED: Ibuprofen 400 MG Tab PO PRN (22:09)
[2017-03-14] MEDS ORDERED: Melatonin 3 MG Tab PO PRN (22:09)
[2017-03-14] MEDS ORDERED: Codeine/guaiFENesin 100mg-10 MG/5 ML Syrup 10 ML Cup PO PRN (22:09)
[2017-03-14] MEDS ORDERED: LORazepam 2 MG/ML SDV IV PRN (22:09)
[2017-03-14] MEDS ORDERED: Lactated Ringers 1,000 ML IV SCH (22:09)
[2017-03-14] MEDS ORDERED: Potassium Chloride 20 MEQ in Premix Bag 1 BAG IV ONE (22:09)
[2017-03-14] MEDS: DORZOLAMIDE 2% EYELF SCH (22:27)
--- NOTE | 2017-03-14 22:28 | PCM.HP ---
H&P History of Present Illness - General Admit Problem/Dx: Admission Diagnosis/Problem Admission Diagnosis/Problem Acute bronchitis with bronchospasm Source of Information: Patient History Limitations: Reports: No Limitations - History of Present Illness Initial Comments - Free Text/Narative: brought in by a neighbor Chief complaint Cough, difficulty breathing, concerned she might have pneumonia History of present illness 86-year-old female who lives on her own home in a house heated by electrical heat and wood stove History of asthma but she hasn't used her nebulizers for some time until this last few days. Recently had colonoscopy done 5 days ago, seen in emergency for abdominal pain about 7 days ago. Cough and congestion started 3 days ago, seen in the clinic that same day and prescribed Augmentin She's been having coughing spells, sometime she can bring up some phlegm but it so stringy she has a hard time bringing up, she sometimes is choking can hardly catch her breath with her coughing spells. Using her albuterol by nebulizer without significant help. No fever or chills No chest pain Onset of Symptoms: Reports: Gradual Duration of Symptoms: Reports: Day(s):, Getting Worse Location: Reports: Generalized Quality: Reports: Other (cough, weakness, shortness of breath with activity) Severity: Severe Improves with: Reports: Rest Worsens with: Reports: Movement Context: Reports: Sick Contact Associated Symptoms: Reports: Cough, Loss of Appetite, Weakness, Other (changes stool pattern) Upper Abdomen Pain Score (Numeric/FACES): 3 - Related Data Allergies/Adverse Reactions: Allergies Allergy/AdvReac Type Severity Reaction Status Date / Time cefdinir Allergy Nausea and Verified 03/14/17 19:13 Vomiting ciprofloxacin Allergy Joint Pain Verified 03/14/17 19:13 fluconazole Allergy Other Verified 03/14/17 19:13 levofloxacin Allergy Joint Pain Verified 03/14/17 19:13 Sulfa (Sulfonamide Allergy Other Verified 03/14/17 19:13 Antibiotics) cefatrizine [Cefatrizine] AdvReac Vomiting Verified 03/14/17 19:13 Home Medications: Home Meds Fluticasone/Salmeterol [Advair 500-50] 1 puff INH BID PRN 10/31/12 [History] Aspirin [Guero Chewable Aspirin] 81 mg PO DAILY 01/26/14 [History] Latanoprost [Xalatan 0.005% Ophth Soln] 1 drop EYEBOTH BEDTIME 01/26/14 [History ] Multivitamin with Minerals [Multiple Vitamin] 1 tab PO DAILY 01/26/14 [History] Omeprazole 20 mg PO DAILY 08/05/16 [History] Hydrochlorothiazide 12.5 mg PO DAILY cap 08/06/16 [Rx] Albuterol Sulfate [Ventolin Hfa] 8 gm IH ASDIRECTED PRN 10/17/16 [History] Dorzolamide [Trusopt 2% Ophth Soln] 1 drop EYELF BID 10/17/16 [History] Albuterol Sulfate [Proair Hfa] 2 puff INH Q4H PRN 03/01/17 [History] Calcium Carbonate [Calcium] 500 mg PO DAILY 03/01/17 [History] Polyethylene Glycol 3350 [MiraLAX] 8.5 g PO DAILY PRN 03/01/17 [History] Triamcinolone Acetonide [Triamcinolone Acetonide 0.1% Crm] 1 appful TOP BID 11/08 [History] Potassium Chloride 10 meq PO DAILY 03/08/17 [History] Amoxicillin/Clavulanate K [Augmentin 875-125 MG] 1 tab PO DAILY 03/14/17 [ History] Past Medical History HEENT History: Reports: Cataract, Glaucoma, Hard of Hearing Cardiovascular History: Reports: Arrhythmia, Hypertension, Other (See Below) Other Cardiovascular History: mitral valve prolapse Respiratory History: Reports: Asthma, Pneumonia, Recurrent Gastrointestinal History: Reports: GERD, Other (See Below) 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 Psychiatric History: Reports: Depression Hematologic History: Reports: Blood Transfusion(s) Immunologic History: Reports: Other (See Below) Other Immunologic History: hepatitis - Infectious Disease History Infectious Disease History: Reports: C-Difficile, Measles, Mumps, Shingles Other Infectious Disease History: states she has had hepatitis but does not know what kind. 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, replaced with cadaver bone with orthopedic appliances Musculoskeletal Surgical History: Reports: Arthroscopic Knee, Hip Replacement Social & Family History - Family History Family Medical History: Noncontributory Oncologic: Reports: Esophageal - Tobacco Use Smoking Status *Q: Never Smoker Years of Tobacco use: 20 Packs/Tins Daily: 1 Used Tobacco, but Quit: Yes Month Tobacco Last Used: February Second Hand Smoke Exposure: No - Caffeine Use Caffeine Use: Reports: None - Alcohol Use Days Per Week of Alcohol Use: 0 - Recreational Drug Use Recreational Drug Use: No - Living Situation & Occupation Living situation: Reports: Occupation: Retired (85 y/o female lives alone at her home on [address] [facility]. one son, lives in [place]) H&P Review of Systems - Review of Systems: Review Of Systems: See Below General: Reports: Malaise, Weakness, Fatigue, Decreased Appetite HEENT: Reports: Sore Throat Pulmonary: Reports: Shortness of Breath, Pleuritic Chest Pain, Cough, Sputum Cardiovascular: Reports: Dyspnea on Exertion Gastrointestinal: Reports: Other (changes in stool, diarrhea to loose for one month. colonscopy 03/08/17) Genitourinary: Reports: No Symptoms Musculoskeletal: Reports: Muscle Pain, Muscle Stiffness Skin: Reports: No Symptoms Psychiatric: Reports: No Symptoms Neurological: Reports: No Symptoms, Weakness (from prolonged illness) Hematologic/Lymphatic: Reports: No Symptoms Immunologic: Reports: No Symptoms Exam - Exam Exam: See Below (frail, thin female, appears stated age.) - Vital Signs Vital Signs: Last Vital Signs Temp 36.8 C 03/14/17 22:21 Pulse 68 03/14/17 22:21 Resp 18 03/14/17 22:21 BP 159/49 H 03/14/17 22:21 Pulse Ox 97 03/14/17 22:21 Weight: 49.895 kg - Exam General: Alert, Oriented, Cooperative HEENT: PERRLA, Conjunctiva Clear, EACs Clear, EOMI, Hearing Intact, Mucosa Moist & [place], Nares Patent, Normal Nasal Septum, Posterior Pharynx Clear, Pupils Equal, Pupils Reactive, TMs Clear, Other (dentures and natural teeth) Neck: Supple, Trachea Midline, 2 Lungs: Clear to Auscultation, Normal Respiratory Effort, Decreased Breath Sounds , Crackles (with cough) Cardiovascular: Regular Rate, Regular Rhythm, Normal S1, Normal S2 GI/Abdominal Exam: Normal Bowel Sounds, Soft, Non-Tender, No Organomegaly, No Distention, No Abnormal Bruit (Female) Exam: Deferred Rectal (Female) Exam: Deferred Back Exam: Normal Inspection, Full Range of Motion Extremities: Normal Inspection, Normal Range of Motion, No Pedal Edema, Normal Capillary Refill Skin: Warm, Dry, Intact Neurological: Strength Equal Bilateral, Sensation Intact Neuro Extensive - Mental Status: Normal Mood/Affect Psychiatric: Alert, Normal Affect, Normal Mood - Patient Data Result Diagrams: 03/14/17 19:48 03/14/17 19:48 *Q Meaningful Use (ADM) - VTE *Q VTE Criteria *Q: - Stroke *Q Stroke Criteria *Q: - AMI *Q AMI Criteria *Q: - Problem List (1) Change in consistency of stool SNOMED Code(s): 949500178 ICD Code: R19.5 - OTHER FECAL ABNORMALITIES Status: Acute Priority: Medium Current Visit: Yes (2) Bronchitis, acute SNOMED Code(s): 33203725 ICD Code: J20.9 - ACUTE BRONCHITIS, UNSPECIFIED Status: Acute Current Visit: Yes Qualifiers: Bronchitis organism: unspecified organism Qualified Code(s): J20.9 - Acute bronchitis, unspecified (3) HTN (hypertension) SNOMED Code(s): 61233360 ICD Code: I10 - ESSENTIAL (PRIMARY) HYPERTENSION Status: Acute Priority: Medium Current Visit: No Qualifiers: Hypertension type: unspecified Qualified Code(s): I10 - Essential (primary ) hypertension (4) Hypokalemia SNOMED Code(s): 18681675 ICD Code: E87.6 - HYPOKALEMIA Status: Acute Priority: Medium Current Visit: Yes Problem List Initiated/Reviewed/Updated: Yes Orders Last 24hrs: Active Orders 24 hr Category Date Time Status Patient Status [ADT] Routine ADT 03/14/17 22:09 Active Ambulate [RC] QID Care 03/14/17 22:09 Active Intake and Output [RC] QSHIFT Care 03/14/17 22:09 Active Notify Provider Vital Signs [RC] ASDIRECTED Care 03/14/17 22:09 Active Oxygen Therapy [RC] PRN Care 03/14/17 22:09 Active Pulse Oximetry [RC] CONTINUOUS Care 03/14/17 22:09 Active RT Aerosol Therapy [RC] ASDIRECTED Care 03/14/17 22:09 Active Up With Assistance [RC] ASDIRECTED Care 03/14/17 22:09 Active VTE/DVT Education [RC] Per Unit Routine Care 03/14/17 22:09 Active Vital Signs [RC] Q4H Care 03/14/17 22:09 Active Consult to Sand Screener [CONS] Routine Cons 03/14/17 22:09 Active Consult to Spiritual Care [CONS] Routine Cons 03/14/17 22:09 Active OT Evaluation and Treatment [CONS] Routine Cons 03/14/17 22:09 Active PT Evaluation and Treatment [CONS] Routine Cons 03/14/17 22:09 Active Regular Diet [DIET] Diet 03/14/17 Dinner Active BASIC METABOLIC PANEL,BMP [CHEM] AM Lab 03/15/17 05:11 Ordered CBC WITH AUTO DIFF [HEME] AM Lab 03/15/17 05:11 Ordered CLOSTRIDIUM DIFFICILE BY PCR [RM] Stat Lab 03/14/17 22:09 Uncollected MAGNESIUM [CHEM] AM Lab 03/15/17 05:11 Ordered Acetaminophen [Tylenol] Med 03/14/17 22:09 Active 650 mg PO Q4H PRN Albuterol [Proventil Neb Soln] Med 03/14/17 22:09 Active 2.5 mg NEB Q4H PRN Albuterol/Ipratropium [DuoNeb 3.0-0.5 MG/3 ML] Med 03/14/17 22:09 Active 3 ml NEB QIDRT Aspirin Med 03/15/17 09:00 Active 81 mg PO DAILY Azithromycin [Zithromax] 500 mg Med 03/14/17 22:30 Active Sodium Chloride 0.9% [Normal Saline] 250 ml IV Q24H Codeine/guaiFENesin [Robitussin AC] Med 03/14/17 22:09 Active 10 ml PO Q4H PRN Dorzolamide [Trusopt 2% Ophth Soln] Med 03/14/17 22:15 Ordered 1 drop EYELF BID Hydrochlorothiazide [Hydrochlorothiazide] Med 03/15/17 09:00 Ordered 12.5 mg PO DAILY Ibuprofen [Motrin] Med 03/14/17 22:09 Active 400 mg PO Q6H PRN LORazepam [Ativan] Med 03/14/17 22:09 Active 1 mg IV Q6H PRN Lactated Ringers [Ringers, Lactated] 1,000 ml Med 03/14/17 22:09 Active IV ASDIRECTED Latanoprost [Xalatan 0.005% Ophth Soln] Med 03/14/17 22:09 Ordered 1 drop EYEBOTH BEDTIME Lisinopril [Prinivil] Med 03/14/17 22:09 Active 20 mg PO DAILY Melatonin Med 03/14/17 22:09 Active 6 mg PO BEDTIME PRN Morphine Med 03/14/17 22:09 Active 2 mg IVPUSH Q2H PRN Omeprazole [Omeprazole] Med 03/15/17 09:00 Ordered 20 mg PO DAILY Ondansetron [Zofran ODT] Med 03/14/17 22:09 Ordered 4 mg PO Q6H PRN Ondansetron [Zofran] Med 03/14/17 22:09 Ordered 4 mg IV Q4H PRN Potassium Chloride [KCL 20 MEQ in Water 100 ML] 20 meq Med 03/14/17 22:09 Ordered Premix Bag 1 bag IV ONETIME Potassium Chloride [Potassium Chloride] Med 03/15/17 09:00 Ordered 10 meq PO DAILY Triamcinolone Acetonide [Triamcinolone Acetonide 0.1% Med 03/15/17 09:00 Ordered Crm] 1 appful TOP BID methylPREDNISolone Sod Succ [Solu-MEDROL] Med 03/14/17 22:09 Active 62.5 mg IV Q6HR oxyCODONE Med 03/14/17 22:09 Ordered 5 mg PO Q4H PRN Sequential Compression Device [OM.PC] Per Unit Routine Oth 03/14/17 22:09 Ordered Resuscitation Status Routine Resus Stat 03/14/17 21:48 Ordered Medication Orders Acetaminophen (Tylenol) 650 mg PO Q4H PRN PRN Reason: Pain (Mild 1-3)/fever Albuterol (Proventil Neb Soln) 2.5 mg NEB Q4H PRN PRN Reason: Shortness Of Breath/wheezing Albuterol/Ipratropium (Duoneb 3.0-0.5 Mg/3 Ml) 3 ml NEB QIDRT [facility] Aspirin (Aspirin) 81 mg PO DAILY [facility] Guaifenesin/Codeine Phosphate (Robitussin Ac) 10 ml PO Q4H PRN PRN Reason: Cough Azithromycin 500 mg/ Sodium (Chloride) 250 mls @ 250 mls/hr IV Q24H [facility] Lactated Ringer's (Ringers, Lactated) 1,000 mls @ 100 mls/hr IV ASDIRECTED [facility] Potassium Chloride 20 meq/ (Premix) 100 mls @ 50 mls/hr IV ONETIME ONE Stop: 03/15/17 00:08 Ibuprofen (Motrin) 400 mg PO Q6H PRN PRN Reason: Pain (mild 1-3) Lisinopril (Prinivil) 20 mg PO DAILY [facility] Lorazepam (Ativan) 1 mg IV Q6H PRN PRN Reason: Nausea/Vomiting Melatonin (Melatonin) 6 mg PO BEDTIME PRN PRN Reason: Insomnia Methylprednisolone Sodium Succinate (Solu-Medrol) 62.5 mg IV Q6HR [facility] Morphine Sulfate (Morphine) 2 mg IVPUSH Q2H PRN PRN Reason: Pain (severe 7-10) Non-Formulary Medication (Dorzolamide [Trusopt 2% Ophth Soln]) 1 drop EYELF BID [facility] Non-Formulary Medication (Hydrochlorothiazide [Hydrochlorothiazide]) 12.5 mg PO DAILY [facility] Non-Formulary Medication (Latanoprost [Xalatan 0.005% Ophth Soln]) 1 drop EYEBOTH BEDTIME [facility] Non-Formulary Medication (Omeprazole [Omeprazole]) 20 mg PO DAILY [facility] Non-Formulary Medication (Potassium Chloride [Potassium Chloride]) 10 meq PO DAILY [facility] Non-Formulary Medication (Triamcinolone Acetonide [Triamcinolone Acetonide 0.1% Crm]) 1 appful TOP BID [facility] Ondansetron HCl (Zofran Odt) 4 mg PO Q6H PRN PRN Reason: Nausea able to take PO Ondansetron HCl (Zofran) 4 mg IV Q4H PRN PRN Reason: Nausea/Vomiting Oxycodone HCl (Oxycodone) 5 mg PO Q4H PRN PRN Reason: Pain (moderate 4-6) Assessment/Plan Comment:: ASSESSMENT / PLAN -brought in by a neighbor, as Ms. Ponce lives alone on [place], [place]. 86-year-old female who lives on her own home in a house heated by electrical heat and wood stove History of asthma but she hasn't used her nebulizers for some time until this last few days. Recently had colonoscopy done 5 days ago, seen in emergency for abdominal pain about 7 days ago. Cough and congestion started 3 days ago, seen in the clinic that same day and prescribed Augmentin She's been having coughing spells, sometime she can bring up some phlegm but it so stringy she has a hard time bringing up, she sometimes is choking can hardly catch her breath with her coughing spells.Using her albuterol by nebulizer without significant help.No fever or chills No chest pain Labs and Chest xray; low potassium otherwise negative will admit to hospital observation due to advanced age, poor health of patient, fatigue, IV fluids for rehydration, medications and monitoring. Plan -Admit Observation to [address] [place] [address] for further monitoring Acute Bronchitis with exacerbation of asthma -IV fluid LR 100ml/hr -IV Zithromax 500mg every 24 hours -nebulizer treatments as directed -IV Solumedrol 62.5 mg every 6 hours -robitussin AC 10ml every 4 hours prn painful cough -And a.m. labs: CBC, BMP Changes in Stool consistency -colonscopy 03-08-17 -lab; stool for C. Diff. Hypokalemia -may be due to excessive stools -IV Potassium 20meq once -PO Potassium 10 meq daily -recheck Potassium in am Hypertension -restart Lisinopril 20 mg po daily -Natividad stopped because thought she didnt need anymore. Maintenance issues -Orders home meds: ordered -Nutrition: Regular diet, gluten free -Tinoco catheter not indicated at this time -DVT: compression stocking -GI Prophalaxis; Protonix 40mg daily CODE STATUS: Full Admission status: Admit to Observation -I expect this patient to stay less than 24 hours, not to exceed 96 hours for evaluation and management of this problem. Disposition: home Primary care provider: Dr. Traylor Hospitalist: Dr. Gabrielle Sanford
[2017-03-14] MEDS ORDERED: Azithromycin 500 MG in Sodium Chloride 0.9% 250 ML IV SCH (22:30)
[2017-03-14] MEDS ORDERED: Lisinopril 10 MG Tab ONE (22:31)
[2017-03-14] MEDS: methylPREDNISolone Sodium Succinate 125 MG/2 ML SDV IV SCH (22:46)
[2017-03-14] MEDS: Lisinopril 20 MG Tab PO SCH (22:55)
[2017-03-14] MEDS: Albuterol/Ipratropium 3.0-0.5 MG/3 ML Neb Soln NEB SCH (22:55)
[2017-03-14] MEDS: LATANOPROST 0.005% EYEBOTH SCH (22:58)
[2017-03-15] MEDS: methylPREDNISolone Sodium Succinate 125 MG/2 ML SDV IV SCH ×2 (03:27→10:35)
[2017-03-15] MEDS: Albuterol/Ipratropium 3.0-0.5 MG/3 ML Neb Soln NEB SCH ×4 (07:26→20:45)
--- NOTE | 2017-03-15 08:42 | CR ---
Chest 2V INDICATION: cough wheeze dyspnea FINDINGS: Comparison 08/06/2016. Hyperinflation. Hypertrophic changes thoracic spine. Postoperative ch anges cervical thoracic junction. Chest otherwise negative.
[2017-03-15] MEDS ORDERED: Aspirin 81 MG Tab.Chew PO SCH (09:00)
[2017-03-15] MEDS ORDERED: Triamcinolone Acetonide 0.1% Crm 15 GM Tube TOP SCH (09:00)
[2017-03-15] MEDS: Pantoprazole 40 MG Tab.CR PO SCH (09:33)
[2017-03-15] MEDS: Potassium Chloride 10 MEQ Cap.ER PO SCH (09:33)
[2017-03-15] MEDS: HYDROCHLOROTHIAZIDE 12.5 MG PO SCH (09:34)
[2017-03-15] MEDS: ASPIRIN 81 MG PO SCH (09:34)
[2017-03-15] MEDS: Triamcinolone Acetonide 0.1% Crm 15 GM Tube TOP SCH ×2 (09:34→20:37)
[2017-03-15] MEDS: DORZOLAMIDE 2% EYELF SCH ×2 (09:35→20:38)
[2017-03-15] MEDS: Lisinopril 20 MG Tab PO SCH (09:36)
[2017-03-15] MEDS ORDERED: Potassium Chloride 20 MEQ Tab.ER PO ONE (10:30)
[2017-03-15] MEDS: Potassium Chloride 20 MEQ, Lidocaine 1% 2 ML in Sodium Chloride 0.9% 100 ML IV SCH ×2 (10:33→14:42)
[2017-03-15] MEDS: Doxycycline 100 MG in Sodium Chloride 0.9% 100 ML IV SCH ×2 (12:22→21:35)
--- NOTE | 2017-03-15 14:04 | PCM.PN ---
- General Info Date of Service: 03/15/17 Subjective Update: Ms. Prabhakar is felt improved since admission last night with less shortness of breath and cough. She is been able to walk and is not currently requiring supplemental oxygen. Vital signs have been stable and she has been afebrile. - Review of Systems General: Reports: Weakness. Denies: Fever, Chills Pulmonary: Reports: Shortness of Breath, Cough, Wheezing. Denies: Pleuritic Chest Pain, Sputum, Hemoptysis Cardiovascular: Reports: Dyspnea on Exertion. Denies: Chest Pain, Palpitations , Orthopnea, PND, Edema, Lightheadedness Gastrointestinal: Reports: No Symptoms - Patient Data Vitals - Most Recent: Last Vital Signs Temp 98 F 03/15/17 11:11 Pulse 75 03/15/17 11:11 Resp 16 03/15/17 11:11 BP 115/52 L 03/15/17 11:11 Pulse Ox 98 03/15/17 12:00 Weight - Most Recent: 113 lb 0.002 oz I&O - Last 24 Hours: Intake & Output 03/14/17 03/15/17 03/15/17 22:59 06:59 14:59 Intake Total 1045 200 Output Total 200 200 Balance 845 0 Lab Results Last 24 Hours: Laboratory Results - last 24 hr 03/15/17 03/15/17 Range/Units 05:45 05:45 WBC 3.6 L (4.5-11.0) K/uL RBC 3.68 (3.30-5.50) M/uL Hgb 11.2 L (12.0-15.0) g/dL Hct 33.8 L (36.0-48.0) % MCV 92 (80-98) fL MCH 30 (27-31) pg MCHC 33 (32-36) % Plt Count 182 (150-400) K/uL Neut % (Auto) 84 H (36-66) % Lymph % (Auto) 13 L (24-44) % [place] % (Auto) 2 (2-6) % Eos % (Auto) 0 L (2-4) % Baso % (Auto) 0 (0-1) % Sodium 143 (140-148) mmol/L Potassium 3.2 L (3.6-5.2) mmol/L Chloride 104 (100-108) mmol/L Carbon Dioxide 28 (21-32) mmol/L Anion Gap 14.2 H (5.0-14.0) mmol/L BUN 12 (7-18) mg/dL Creatinine 0.9 (0.6-1.0) mg/dL Est Cr Clr Drug Dosing 32.60 mL/min Estimated GFR (MDRD) 59 L (>60) Glucose 210 H (74-106) mg/dL Calcium 8.9 (8.5-10.1) mg/dL Magnesium 2.0 (1.8-2.4) mg/dL [place]ayne Results Last 24 Hours: Microbiology 03/14/17 22:09 Clostridium difficile (PCR) - Final Stool / Feces NEGATIVE CDIFF TOXIN 03/15/17 09:56 Influenza Type A Antigen Screen - Final Nasopharyngeal Swab - Nare, Right NEGATIVE INFLUENZA A VIRUS AG Influenza Type B Antigen Screen - Final NEGATIVE INFLUENZA B VIRUS AG Med Orders - Current: Current Medications Acetaminophen (Tylenol) 650 mg PO Q4H PRN PRN Reason: Pain (Mild 1-3)/fever Albuterol (Proventil Neb Soln) 2.5 mg NEB Q4H PRN PRN Reason: Shortness Of Breath/wheezing Albuterol/Ipratropium (Duoneb 3.0-0.5 Mg/3 Ml) 3 ml NEB QIDRT [facility] Last Admin: 03/15/17 11:04 Dose: Not Given Aspirin (Halfprin) 81 mg PO DAILY [facility] Last Admin: 03/15/17 09:34 Dose: 81 mg Citalopram Hydrobromide (Celexa) 10 mg PO DAILY [facility] Dorzolamide HCl (Trusopt 2% Ophth Soln) 0 ml EYELF BID [facility] Last Admin: 03/15/17 09:35 Dose: 1 drop Guaifenesin/Codeine Phosphate (Robitussin Ac) 10 ml PO Q4H PRN PRN Reason: Cough Hydrochlorothiazide (Hydrochlorothiazide) 12.5 mg PO DAILY [facility] Last Admin: 03/15/17 09:34 Dose: 12.5 mg Doxycycline Hyclate 100 mg/ (Sodium Chloride) 100 mls @ 100 mls/hr IV Q12H [facility] Last Admin: 03/15/17 12:22 Dose: 100 mls/hr Potassium Chloride 20 meq/Lidocaine HCl 2 ml/ Sodium Chloride 112 mls @ 56 mls/ hr IV Q2H [facility] Stop: 03/15/17 15:29 Last Admin: 03/15/17 10:33 Dose: 56 mls/hr Ibuprofen (Motrin) 400 mg PO Q6H PRN PRN Reason: Pain (mild 1-3) Latanoprost (Xalatan 0.005% Ophth Soln) 0 ml EYEBOTH BEDTIME [facility] Last Admin: 03/14/17 22:58 Dose: 1 drop Lisinopril (Prinivil) 20 mg PO DAILY [facility] Last Admin: 03/15/17 09:36 Dose: 20 mg Lorazepam (Ativan) 1 mg IV Q6H PRN PRN Reason: Nausea/Vomiting Melatonin (Melatonin) 6 mg PO BEDTIME PRN PRN Reason: Insomnia Methylprednisolone Sodium Succinate (Solu-Medrol) 62.5 mg IV Q6HR [facility] Last Admin: 03/15/17 10:35 Dose: 62.5 mg Morphine Sulfate (Morphine) 2 mg IVPUSH Q2H PRN PRN Reason: Pain (severe 7-10) Ondansetron HCl (Zofran Odt) 4 mg PO Q6H PRN PRN Reason: Nausea able to take PO Ondansetron HCl (Zofran) 4 mg IV Q4H PRN PRN Reason: Nausea/Vomiting Oxycodone HCl (Oxycodone) 5 mg PO Q4H PRN PRN Reason: Pain (moderate 4-6) Pantoprazole Sodium (Protonix) 40 mg PO ACBREAKFAST [facility] Last Admin: 03/15/17 09:33 Dose: 40 mg Potassium Chloride (Potassium Chloride) 10 meq PO DAILY@0800 [facility] Last Admin: 03/15/17 09:33 Dose: 10 meq Triamcinolone Acetonide (Triamcinolone Acetonide 0.1% Crm) 0 gm TOP BID [facility] Last Admin: 03/15/17 09:34 Dose: Not Given Discontinued Medications Albuterol (Proventil Neb Soln) 2.5 mg NEB ONETIME ONE Stop: 03/14/17 19:49 Last Admin: 03/14/17 19:59 Dose: 2.5 mg Budesonide (Pulmicort) 0.5 mg NEB ONETIME ONE Stop: 03/14/17 19:49 Last Admin: 03/14/17 19:59 Dose: 0.5 mg Azithromycin 500 mg/ Sodium (Chloride) 250 mls @ 250 mls/hr IV Q24H [facility] Last Admin: 03/14/17 22:49 Dose: 250 mls/hr Lactated Ringer's (Ringers, Lactated) 1,000 mls @ 100 mls/hr IV ASDIRECTED [facility] Last Admin: 03/14/17 22:47 Dose: 100 mls/hr Potassium Chloride 20 meq/ (Premix) 100 mls @ 50 mls/hr IV ONETIME ONE Stop: 03/15/17 00:08 Last Admin: 03/15/17 00:08 Dose: 50 mls/hr Lidocaine HCl (Xylocaine-Mpf 1%) 2 ml INJECT ONETIME ONE Stop: 03/14/17 22:36 Last Admin: 03/15/17 00:12 Dose: 2 ml Lisinopril (Prinivil) Confirm Administered Dose 20 mg .ROUTE .STK-MED ONE Stop: 03/14/17 22:32 Last Admin: 03/14/17 22:59 Dose: Not Given Potassium Chloride (Klor-Con M20) 40 meq PO ONETIME ONE Stop: 03/15/17 10:31 Last Admin: 03/15/17 10:32 Dose: 40 meq Prednisone (Prednisone) 40 mg PO ONETIME ONE Stop: 03/14/17 20:40 Last Admin: 03/14/17 20:48 Dose: 40 mg - Exam Quality Assessment: DVT Prophylaxis General: Alert, Oriented, Cooperative, No Acute Distress Lungs: Decreased Breath Sounds, Wheezing. No: Crackles, Rales, Rhonchi, Rub Cardiovascular: Regular Rate, Regular Rhythm, Murmurs. No: Irregular Rhythm GI/Abdominal Exam: Soft, Non-Tender, No Organomegaly, No Distention Extremities: Non-Tender, No Pedal Edema Skin: Warm, Dry, Intact - Problem List Review Problem List Initiated/Reviewed/Updated: Yes - My Orders Last 24 Hours: My Active Orders 03/15/17 09:54 CULTURE RESPIRATORY + SMEAR [RM] Stat Blood Culture x2 Reflex Set [OM.PC] Urgent 03/15/17 10:00 CULTURE BLOOD [BC] Stat 03/15/17 10:04 CULTURE BLOOD [BC] Stat 03/15/17 10:30 Doxycycline [Vibramycin] 100 mg Sodium Chloride 0.9% [Normal Saline] 100 ml IV Q12H 03/15/17 11:30 Potassium Chloride 20 meq Lidocaine 1% [Xylocaine 1%] 2 ml Sodium Chloride 0.9 % [Normal Saline] 100 ml IV Q2H 03/15/17 13:56 Convert IV to Saline Lock [OM.PC] Routine 03/15/17 14:00 Citalopram [Celexa] 10 mg PO DAILY 03/16/17 05:00 BASIC METABOLIC PANEL,BMP [CHEM] Timed - Plan Plan:: ASSESSMENT / PLAN Acute Bronchitis with exacerbation of asthma -Saline lock IV -Doxycycline 100 mg IV every 12 hours -nebulizer treatments as directed -Prednisone 40 mg by mouth daily -robitussin AC 10ml every 4 hours prn painful cough Hypokalemia -may be due to excessive stools -IV Potassium 40 mEq today -PO Potassium 40 mEq by mouth today -recheck Potassium in am Hypertension-blood pressure has been under adequate control since admission -restart Lisinopril 20 mg po daily -Natividad stopped because thought she didnt need anymore. Maintenance issues -Orders home meds: ordered -Nutrition: Regular diet, gluten free -Tinoco catheter not indicated at this time -DVT: compression stocking -GI Prophalaxis; Protonix 40mg daily CODE STATUS: Full Admission status: Admit to Observation -I expect this patient to stay less than 24 hours, not to exceed 96 hours for evaluation and management of this problem. Disposition: home Primary care provider: Dr. Traylor
[2017-03-15] MEDS: Citalopram 10 MG Tab PO SCH (15:26)
[2017-03-15] MEDS: LATANOPROST 0.005% EYEBOTH SCH (20:39)
[2017-03-16 07:36] VITALS: BP 115/52
[2017-03-16] MEDS: Albuterol/Ipratropium 3.0-0.5 MG/3 ML Neb Soln NEB SCH ×2 (07:43→10:58)
[2017-03-16] MEDS: Pantoprazole 40 MG Tab.CR PO SCH (07:51)
[2017-03-16] MEDS ORDERED: predniSONE 20 MG Tab PO SCH (08:00)
[2017-03-16] MEDS ORDERED: Potassium Chloride 10% 20 MEQ/15 ML Soln 15 ML UD Cup PO ONE (09:00)
[2017-03-16] MEDS: ASPIRIN 81 MG PO SCH (09:38)
[2017-03-16] MEDS: HYDROCHLOROTHIAZIDE 12.5 MG PO SCH (09:39)
[2017-03-16] MEDS: Potassium Chloride 10 MEQ Cap.ER PO SCH (09:40)
[2017-03-16] MEDS: Citalopram 10 MG Tab PO SCH (09:41)
[2017-03-16] MEDS: Lisinopril 20 MG Tab PO SCH (09:43)
[2017-03-16] MEDS: DORZOLAMIDE 2% EYELF SCH (09:45)
[2017-03-16] MEDS: Triamcinolone Acetonide 0.1% Crm 15 GM Tube TOP SCH (09:45)
--- NOTE | 2017-03-16 10:36 | PCM.DCSUM1 ---
Discharge Summary - Hospital Course Brief History: Ms. Prabhakar is an 86-year-old woman who was admitted through the emergency department observation status with cough and shortness of breath secondary to asthma exacerbation with underlying bronchitis. - Discharge Data Discharge Date: 03/16/17 Discharge Disposition: Home, Self-Care 01 Condition: Fair - Discharge Diagnosis/Problem(s) (1) Anxiety SNOMED Code(s): 66381482 ICD Code: F41.9 - ANXIETY DISORDER, UNSPECIFIED Status: Acute Current Visit: Yes (2) Bronchitis, acute SNOMED Code(s): 37458237 ICD Code: J20.9 - ACUTE BRONCHITIS, UNSPECIFIED Status: Acute Current Visit: Yes Qualifiers: Bronchitis organism: unspecified organism Qualified Code(s): J20.9 - Acute bronchitis, unspecified (3) Mild intermittent asthma with exacerbation SNOMED Code(s): 383243005 ICD Code: J45.21 - MILD INTERMITTENT ASTHMA WITH (ACUTE) EXACERBATION Status: Acute Current Visit: Yes (4) Irritable bowel syndrome (IBS) SNOMED Code(s): 80907434 ICD Code: K58.9 - IRRITABLE BOWEL SYNDROME WITHOUT DIARRHEA Status: Chronic Current Visit: No Qualifiers: Irritable bowel syndrome type: unspecified Qualified Code(s): K58.9 - Irritable bowel syndrome without diarrhea - Patient Summary/Data Consults: Consultations 03/14/17 22:09 Consult to [facility] [CONS] Routine Comment: Physician Instructions: Consult to Spiritual Care [CONS] Routine OT Evaluation and Treatment [CONS] Routine Please Evaluate and Treat. OT Reason for Consult: Discharge Planning This query below is only for informational purposes and is not editable. Admission Diagnosis/Problem: Acute bronchitis with bronchospasm PT Evaluation and Treatment [CONS] Routine Please Evaluate and Treat. PT Reason for Consult: Strengthening This query below is only for informational purposes and is not editable. Admission Diagnosis/Problem: Acute bronchitis with bronchospasm Hospital Course: Ms. Prabhakar is an 86-year-old woman who has mild intermittent asthma. She developed upper respiratory tract infection with increased shortness of breath, cough, and weakness. On evaluation in the emergency department white blood cell count was normal and chest x-ray showed no obvious infiltrate. She was admitted to observation status and given nebulizer therapy, IV Solu-Medrol, and antibiotic therapy. Over the next 2 days of hospitalization symptoms improved but had not totally resolved by the time of discharge. She was off of supplemental oxygen at the time of discharge but continued to experience a nonproductive cough. Potassium levels were low throughout her hospital stay and she did receive supplemental IV and by mouth potassium. She reported ongoing difficulty with anxiety and was started on citalopram 10 mg by mouth daily. Activity will be as tolerated and she will resume her usual diet. An additional 6 days of oral doxycycline will be prescribed and she will receive 3 days of prednisone therapy. Follow-up appointment with her primary care provider will be scheduled within one week. - Patient Instructions Diet: Usual Diet as Tolerated Activity: As Tolerated Other/Special Instructions: Please schedule follow-up appointment with primary care provider within one week. - Discharge Plan Prescriptions/Med Rec: Citalopram Hydrobromide [Celexa] 10 mg PO DAILY #30 tablet Doxycycline [Vibramycin] 100 mg PO BID #12 cap Prednisone [IJD: predniSONE] 40 mg PO DAILY@0800 #6 tablet Home Medications: Home Meds Fluticasone/Salmeterol [Advair 500-50] 1 puff INH BID PRN 10/31/12 [History] Aspirin [Guero Chewable Aspirin] 81 mg PO DAILY 01/26/14 [History] Latanoprost [Xalatan 0.005% Ophth Soln] 1 drop EYEBOTH BEDTIME 01/26/14 [History ] Multivitamin with Minerals [Multiple Vitamin] 1 tab PO DAILY 01/26/14 [History] Omeprazole 20 mg PO DAILY 08/05/16 [History] Hydrochlorothiazide 12.5 mg PO DAILY cap 08/06/16 [Rx] Albuterol Sulfate [Ventolin Hfa] 8 gm IH ASDIRECTED PRN 10/17/16 [History] Dorzolamide [Trusopt 2% Ophth Soln] 1 drop EYELF BID 10/17/16 [History] Albuterol Sulfate [Proair Hfa] 2 puff INH Q4H PRN 03/01/17 [History] Calcium Carbonate [Calcium] 500 mg PO DAILY 03/01/17 [History] Polyethylene Glycol 3350 [MiraLAX] 8.5 g PO DAILY PRN 03/01/17 [History] Triamcinolone Acetonide [Triamcinolone Acetonide 0.1% Crm] 1 appful TOP BID 11/08 [History] Potassium Chloride 10 meq PO DAILY 03/08/17 [History] Citalopram Hydrobromide [Celexa] 10 mg PO DAILY #30 tablet 03/16/17 [Rx] Doxycycline [Vibramycin] 100 mg PO BID #12 cap 03/16/17 [Rx] Prednisone [IJD: predniSONE] 40 mg PO DAILY@0800 #6 tablet 03/16/17 [Rx] Referrals: Ricky Traylor MD [Primary Care Provider] - - Patient Data Vitals - Most Recent: Last Vital Signs Temp 98.2 F 03/16/17 07:00 Pulse 69 03/16/17 07:00 Resp 18 03/16/17 07:00 BP 115/52 L 03/16/17 09:43 Pulse Ox 99 03/16/17 07:00 Weight - Most Recent: 113 lb 0.002 oz I&O - Last 24 hours: Intake & Output 03/15/17 03/16/17 03/16/17 22:59 06:59 14:59 Intake Total 814 240 Output Total 250 400 Balance 564 -160 Lab Results - Last 24 hrs: Laboratory Results - last 24 hr 03/16/17 Range/Units 05:30 Sodium 144 (140-148) mmol/L Potassium 3.4 L (3.6-5.2) mmol/L Chloride 108 (100-108) mmol/L Carbon Dioxide 27 (21-32) mmol/L Anion Gap 12.4 (5.0-14.0) mmol/L BUN 25 H D (7-18) mg/dL Creatinine 0.9 (0.6-1.0) mg/dL Est Cr Clr Drug Dosing 32.64 mL/min Estimated GFR (MDRD) 59 L (>60) Glucose 107 H (74-106) mg/dL Calcium 8.7 (8.5-10.1) mg/dL BEA Results - Last 24 hrs: Microbiology 03/15/17 10:00 Aerobic Blood Culture - Preliminary Blood - Venous NO GROWTH AFTER 1 DAY Anaerobic Blood Culture - Preliminary NO GROWTH AFTER 1 DAY 03/15/17 10:04 Aerobic Blood Culture - Preliminary Blood - Arm, Left NO GROWTH AFTER 1 DAY Anaerobic Blood Culture - Preliminary NO GROWTH AFTER 1 DAY 03/14/17 22:09 Clostridium difficile (PCR) - Final Stool / Feces NEGATIVE CDIFF TOXIN 03/15/17 09:56 Influenza Type A Antigen Screen - Final Nasopharyngeal Swab - Nare, Right NEGATIVE INFLUENZA A VIRUS AG Influenza Type B Antigen Screen - Final NEGATIVE INFLUENZA B VIRUS AG Med Orders - Current: Current Medications Acetaminophen (Tylenol) 650 mg PO Q4H PRN PRN Reason: Pain (Mild 1-3)/fever Albuterol (Proventil Neb Soln) 2.5 mg NEB Q4H PRN PRN Reason: Shortness Of Breath/wheezing Albuterol/Ipratropium (Duoneb 3.0-0.5 Mg/3 Ml) [address] [facility] Last Admin: 03/16/17 07:43 Dose: 3 ml Aspirin (Halfprin) [address] [facility] Last Admin: 03/16/17 09:38 Dose: 81 mg Citalopram Hydrobromide (Celexa) [address] [facility] Last Admin: 03/16/17 09:41 Dose: 10 mg Dorzolamide HCl (Trusopt 2% Ophth Soln) [address] [facility] Last Admin: 03/16/17 09:45 Dose: 1 drop Guaifenesin/Codeine Phosphate (Robitussin Ac) 10 ml PO Q4H PRN PRN Reason: Cough Hydrochlorothiazide (Hydrochlorothiazide) 12.[address] [facility] Last Admin: 03/16/17 09:39 Dose: 12.5 mg Doxycycline Hyclate 100 mg/ (Sodium Chloride) 100 mls @ 100 mls/hr IV Q12H [facility] Last Admin: 03/15/17 21:35 Dose: 100 mls/hr Potassium Chloride 20 meq/Lidocaine HCl 2 ml/ Sodium Chloride 112 mls @ 56 mls/ hr IV Q2H [facility] Stop: 03/16/17 12:59 Ibuprofen (Motrin) 400 mg PO Q6H PRN PRN Reason: Pain (mild 1-3) Latanoprost (Xalatan 0.005% Ophth Soln) [address] [facility] Last Admin: 03/15/17 20:39 Dose: 1 drop Lisinopril (Prinivil) [address] [facility] Last Admin: 03/16/17 09:43 Dose: 20 mg Lorazepam (Ativan) 1 mg IV Q6H PRN PRN Reason: Nausea/Vomiting Melatonin (Melatonin) 6 mg PO BEDTIME PRN PRN Reason: Insomnia Morphine Sulfate (Morphine) 2 mg IVPUSH Q2H PRN PRN Reason: Pain (severe 7-10) Ondansetron HCl (Zofran Odt) 4 mg PO Q6H PRN PRN Reason: Nausea able to take PO Ondansetron HCl (Zofran) 4 mg IV Q4H PRN PRN Reason: Nausea/Vomiting Oxycodone HCl (Oxycodone) 5 mg PO Q4H PRN PRN Reason: Pain (moderate 4-6) Pantoprazole Sodium (Protonix) [address] [facility] Last Admin: 03/16/17 07:51 Dose: 40 mg Potassium Chloride (Potassium Chloride) 10 meq PO DAILY@0800 [facility] Last Admin: 03/16/17 09:40 Dose: 10 meq Prednisone (Prednisone) 40 mg PO DAILY@0800 [facility] Last Admin: 03/16/17 09:41 Dose: 40 mg Triamcinolone Acetonide (Triamcinolone Acetonide 0.1% Crm) [address] [facility] Last Admin: 03/16/17 09:45 Dose: Not Given Discontinued Medications Albuterol (Proventil Neb Soln) 2.5 mg NEB ONETIME ONE Stop: 03/14/17 19:49 Last Admin: 03/14/17 19:59 Dose: 2.5 mg Budesonide (Pulmicort) 0.5 mg NEB ONETIME ONE Stop: 03/14/17 19:49 Last Admin: 03/14/17 19:59 Dose: 0.5 mg Azithromycin 500 mg/ Sodium (Chloride) 250 mls @ 250 mls/hr IV Q24H [facility] Last Admin: 03/14/17 22:49 Dose: 250 mls/hr Lactated Ringer's (Ringers, Lactated) 1,000 mls @ 100 mls/hr IV ASDIRECTED [facility] Last Admin: 03/14/17 22:47 Dose: 100 mls/hr Potassium Chloride 20 meq/ (Premix) 100 mls @ 50 mls/hr IV ONETIME ONE Stop: 03/15/17 00:08 Last Admin: 03/15/17 00:08 Dose: 50 mls/hr Potassium Chloride 20 meq/Lidocaine HCl 2 ml/ Sodium Chloride 112 mls @ 56 mls/ hr IV Q2H [facility] Stop: 03/15/17 15:29 Last Admin: 03/15/17 14:42 Dose: 56 mls/hr Lidocaine HCl (Xylocaine-Mpf 1%) 2 ml INJECT ONETIME ONE Stop: 03/14/17 22:36 Last Admin: 03/15/17 00:12 Dose: 2 ml Lisinopril (Prinivil) Confirm Administered Dose 20 mg .ROUTE .STK-MED ONE Stop: 03/14/17 22:32 Last Admin: 03/14/17 22:59 Dose: Not Given Methylprednisolone Sodium Succinate (Solu-Medrol) 62.[address] [facility] Last Admin: 03/15/17 10:35 Dose: 62.5 mg Potassium Chloride (Klor-Con M20) 40 meq PO ONETIME ONE Stop: 03/15/17 10:31 Last Admin: 03/15/17 10:32 Dose: 40 meq Potassium Chloride (Potassium Chloride Solution) 40 meq PO ONETIME ONE Stop: 03/16/17 09:01 Prednisone (Prednisone) 40 mg PO ONETIME ONE Stop: 03/14/17 20:40 Last Admin: 03/14/17 20:48 Dose: 40 mg *Q Meaningful Use (DIS) - VTE *Q VTE Criteria *Q: - Stroke *Q Stroke Criteria *Q: - AMI *Q AMI Criteria *Q:
[2017-03-16] MEDS: Doxycycline 100 MG in Sodium Chloride 0.9% 100 ML IV SCH (10:58)
[2017-03-16] MEDS: Potassium Chloride 20 MEQ, Lidocaine 1% 2 ML in Sodium Chloride 0.9% 100 ML IV SCH ×2 (10:58→11:03)
== END 2017-03-16 12:30 | disposition home or self-care (01) ==
LOC: JP.ED 19:02 → JP.MS 21:46
PROVIDERS: ADMIT Internal Medicine; ATTEND Hospitalist
DX: J20.9 Acute bronchitis, unspecified (principal); J45.21 Mild intermittent asthma with (acute) exacerbation; K58.9 Irritable bowel syndrome, unspecified; F41.9 Anxiety disorder, unspecified; I10 Essential (primary) hypertension; K21.9 Gastro-esophageal reflux disease without esophagitis; F32.9 Major depressive disorder, single episode, unspecified; Z79.82 Long term (current) use of aspirin; Z79.899 Other long term (current) drug therapy; Z79.2 Long term (current) use of antibiotics; Z88.1 Allergy status to other antibiotic agents; Z88.2 Allergy status to sulfonamides
CPT/HCPCS: 36415; 71046; 80048; 83735; 85025; 85027; 87040; 87493; 87804; 94640; 94762; 96361; 96365; 96366; 96367; 96375; 96376; 97161; 97165; 99285; A9270; G0378; J0456; J2930; J3480; J7030; J7050; J7120; J7620; J7626; 99217; 99219; 99224; 99283

== ENCOUNTER 2017-05-06 18:54 | Emergency (ER) | payer MEDICARE, OTHER ==
[2017-05-06] MEDS ORDERED: LORazepam 0.5 MG Tab PO ONE (19:50)
--- NOTE | 2017-05-06 19:53 | EDM.PDOC ---
ED HPI GENERAL MEDICAL PROBLEM - General Chief Complaint: General Stated Complaint: ILLNESS Time Seen by Provider: 05/06/17 19:41 Source of Information: Reports: Patient, RN Notes Reviewed History Limitations: Reports: No Limitations - History of Present Illness INITIAL COMMENTS - FREE TEXT/NARRATIVE: 86-year-old female presents to the emergency department today with complaint of urinary frequency and urgency she denies any dysuria states she's only had the symptoms for about 12 hours, she is also quite anxious and concerned about her blood pressure she normally takes hydrochlorothiazide 12.5 mg once a day however she checked her blood pressure home with her own machine it was a systolic of 220 and she is quite concerned Feet Pain Score (Numeric/FACES): 3 - Related Data Allergies Allergy/AdvReac Type Severity Reaction Status Date / Time cefdinir Allergy Nausea and Verified 05/06/17 19:14 Vomiting ciprofloxacin Allergy Joint Pain Verified 05/06/17 19:14 fluconazole Allergy Other Verified 05/06/17 19:14 levofloxacin Allergy Joint Pain Verified 05/06/17 19:14 Sulfa (Sulfonamide Allergy Other Verified 05/06/17 19:14 Antibiotics) cefatrizine [Cefatrizine] AdvReac Vomiting Verified 05/06/17 19:14 Home Meds: Home Meds Fluticasone/Salmeterol [Advair 500-50] 1 puff INH DAILY 10/31/12 [History] Aspirin [Guero Chewable Aspirin] 81 mg PO DAILY 01/26/14 [History] Latanoprost [Xalatan 0.005% Ophth Soln] 1 drop EYEBOTH BEDTIME 01/26/14 [History ] Multivitamin with Minerals [Multiple Vitamin] 1 tab PO DAILY 01/26/14 [History] Omeprazole 20 mg PO DAILY 08/05/16 [History] Hydrochlorothiazide 12.5 mg PO DAILY cap 08/06/16 [Rx] Albuterol Sulfate [Ventolin Hfa] 8 gm IH ASDIRECTED PRN 10/17/16 [History] Albuterol Sulfate [Proair Hfa] 2 puff INH Q4H PRN 03/01/17 [History] Calcium Carbonate [Calcium] 500 mg PO DAILY 03/01/17 [History] Polyethylene Glycol 3350 [MiraLAX] 8.5 g PO DAILY PRN 03/01/17 [History] Triamcinolone Acetonide [Triamcinolone Acetonide 0.1% Crm] 1 appful TOP BID 11/08 [History] Citalopram Hydrobromide [Celexa] 10 mg PO DAILY #30 tablet 03/16/17 [Rx] Amoxicillin/Potassium Clav [Amox-Clav 875-125 mg Tablet] 1 tab PO BID 05/06/17 [ History] Brimonidine Tartrate [Alphagan P 0.1% Ophth Soln] 1 drop TOP BID 05/06/17 [ History] Past Medical History HEENT History: Reports: Cataract, Glaucoma, Hard of Hearing Cardiovascular History: Reports: Arrhythmia, Hypertension, Other (See Below) Other Cardiovascular History: mitral valve prolapse Respiratory History: Reports: Asthma, Pneumonia, Recurrent Gastrointestinal History: Reports: GERD, Other (See Below) 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 Psychiatric History: Reports: Depression Hematologic History: Reports: Blood Transfusion(s) Immunologic History: Reports: Other (See Below) Other Immunologic History: hepatitis - Infectious Disease History Infectious Disease History: Reports: Chicken Pox, Measles, Mumps, Shingles Other Infectious Disease History: states she has had hepatitis but does not know what kind. 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, replaced with cadaver bone with orthopedic appliances Musculoskeletal Surgical History: Reports: Arthroscopic Knee, Hip Replacement Social & Family History - Family History Family Medical History: Noncontributory Oncologic: Reports: Esophageal - Tobacco Use Smoking Status *Q: Never Smoker Years of Tobacco use: 20 Packs/Tins Daily: 1 Used Tobacco, but Quit: Yes Month/Year Tobacco Last Used: February Second Hand Smoke Exposure: No - Caffeine Use Caffeine Use: Reports: Soda, Tea - Alcohol Use Days Per Week of Alcohol Use: 0 - Recreational Drug Use Recreational Drug Use: No - Living Situation & Occupation Living situation: Reports: Occupation: Retired (85 y/o female lives alone at her home on [address]. one son, lives in [place]) ED ROS GENERAL - Review of Systems Review Of Systems: See Below Constitutional: Denies: Fever, Chills HEENT: Reports: No Symptoms Respiratory: Reports: No Symptoms Cardiovascular: Reports: No Symptoms GI/Abdominal: Reports: No Symptoms : Reports: Frequency, Urgency. Denies: Dysuria Musculoskeletal: Reports: No Symptoms Skin: Reports: No Symptoms Neurological: Reports: No Symptoms ED EXAM, GENERAL - Physical Exam Exam: See Below Exam Limited By: No Limitations General Appearance: Alert, WD/WN, No Apparent Distress Neck: Normal Inspection, Supple, Non-Tender, Full Range of Motion Respiratory/Chest: No Respiratory Distress, Lungs Clear, Normal Breath Sounds, No Accessory Muscle Use Cardiovascular: Regular Rate, Rhythm, No Murmur GI/Abdominal: Normal Bowel Sounds, Soft, Non-Tender Back Exam: Normal Inspection, Full Range of Motion. No: CVA Tenderness (R), CVA Tenderness (L) Course - Vital Signs Last Recorded V/S: Last Vital Signs Temp 97.0 F 05/06/17 19:33 Pulse 83 05/06/17 19:53 Resp 17 05/06/17 19:33 BP 175/65 H 05/06/17 20:28 Pulse Ox 96 05/06/17 19:53 - Orders/Labs/Meds Labs: Laboratory Tests 05/06/17 05/06/17 05/06/17 Range/Units 19:44 19:53 19:53 WBC 6.6 (4.5-11.0) K/uL RBC 3.98 (3.30-5.50) M/uL Hgb 12.2 (12.0-15.0) g/dL Hct 36.9 (36.0-48.0) % MCV 93 (80-98) fL MCH 31 (27-31) pg MCHC 33 (32-36) % Plt Count 232 (150-400) K/uL Neut % (Auto) 64 (36-66) % Lymph % (Auto) 14 L (24-44) % [place] % (Auto) 9 H (2-6) % Eos % (Auto) 12 H (2-4) % Baso % (Auto) 1 (0-1) % Sodium 142 (140-148) mmol/L Potassium 3.4 L (3.6-5.2) mmol/L Chloride 104 (100-108) mmol/L Carbon Dioxide 28 (21-32) mmol/L Anion Gap 13.4 (5.0-14.0) mmol/L BUN 14 (7-18) mg/dL Creatinine 0.7 (0.6-1.0) mg/dL Est Cr Clr Drug Dosing 41.92 mL/min Estimated GFR (MDRD) > 60 (>60) Glucose 100 (74-106) mg/dL Calcium 9.4 (8.5-10.1) mg/dL Urine Color Yellow Urine Appearance Clear Urine pH 7.0 (4.5-8.0) Ur Specific [place] 1.010 (1.008-1.030) Urine Protein Negative (NEGATIVE) mg/dL Urine Glucose (UA) Normal (NEGATIVE) mg/dL Urine Ketones Negative (NEGATIVE) mg/dL Urine Occult Blood Negative (NEGATIVE) Urine Nitrite Negative (NEGATIVE) Urine Bilirubin Negative (NEGATIVE) Urine Urobilinogen Normal (NORMAL) mg/dL Ur Leukocyte Esterase Negative (NEGATIVE) Urine RBC Not seen (0-5) Urine WBC Not seen (0-5) Ur Epithelial Cells Rare Amorphous Sediment Not seen Urine Bacteria Rare Urine Mucus Not seen Meds: Medications Discontinued Medications Generic Name Dose Route Start Last Admin Trade Name Freq PRN Reason Stop Dose Admin Lorazepam 0.5 mg 05/06/17 19:50 05/06/17 20:00 Ativan PO 05/06/17 19:51 0.5 mg ONETIME ONE Administration Departure - Departure Time of Disposition: 20:36 Disposition: Home, Self-Care 01 Condition: Fair Clinical Impression: Frequency of urination - Discharge Information Referrals: Ricky Traylor MD [Primary Care Provider] - Forms: ED Department Discharge Additional Instructions: Recommend follow-up with primary care with consultation to urology, call return to the emergency department worsening of symptoms - Assessment/Plan Plan: Assessment Acuity = acute Site and laterality = urinary frequency Etiology = unclear etiology Manifestations = none Location of injury = Home Lab values = CBC, BMP, urinalysis unremarkable Plan Recommend follow-up with primary care with consultation to urology call return to the emergency department with worsening of symptoms This note was dictated using [employer] voice recognition software please call with any questions on syntax or margo.
[2017-05-06 20:28] VITALS: BP 175/65
== END 2017-05-06 20:55 | disposition home or self-care (01) ==
LOC: JP.ED 18:54
DX: R35.0 Frequency of micturition (principal); J45.909 Unspecified asthma, uncomplicated; K21.9 Gastro-esophageal reflux disease without esophagitis; Z88.2 Allergy status to sulfonamides; Z88.8 Allergy status to other drugs, medicaments and biological substances; Z88.1 Allergy status to other antibiotic agents; Z79.82 Long term (current) use of aspirin; Z79.899 Other long term (current) drug therapy
CPT/HCPCS: 36415; 80048; 81001; 85025; 99284; A9270

== ENCOUNTER 2017-06-09 08:13 | Observation (INO) | payer MEDICARE, OTHER ==
[2017-06-09] MEDS ORDERED: methylPREDNISolone Sodium Succinate 125 MG/2 ML SDV IVPUSH ONE (08:46)
[2017-06-09] MEDS ORDERED: Sodium Chloride 0.9% 10 ML Syringe FLUSH PRN ×2 (08:46→11:15)
[2017-06-09] MEDS ORDERED: Albuterol 0.083% 2.5 MG/3 ML Neb Soln NEB ONE (08:47)
--- NOTE | 2017-06-09 08:51 | EDM.PDOC ---
ED HPI GENERAL MEDICAL PROBLEM - General Chief Complaint: Respiratory Problem Stated Complaint: TROUBLES BREATHING Time Seen by Provider: 06/09/17 08:50 Source of Information: Reports: Patient History Limitations: Reports: No Limitations - History of Present Illness INITIAL COMMENTS - FREE TEXT/NARRATIVE: pt arrived feeling sob and having alot of wheezing. Onset: Gradual, Other ( She has jw ill since last week end. ) Duration: Hour(s): Location: Reports: Chest Associated Symptoms: Reports: Cough, Diaphoresis, Shortness of Breath, Weakness - Related Data Allergies Allergy/AdvReac Type Severity Reaction Status Date / Time cefdinir Allergy Nausea and Verified 05/06/17 19:14 Vomiting ciprofloxacin Allergy Joint Pain Verified 05/06/17 19:14 fluconazole Allergy Other Verified 05/06/17 19:14 levofloxacin Allergy Joint Pain Verified 05/06/17 19:14 Sulfa (Sulfonamide Allergy Other Verified 05/06/17 19:14 Antibiotics) cefatrizine [Cefatrizine] AdvReac Vomiting Verified 05/06/17 19:14 Home Meds: Home Meds Fluticasone/Salmeterol [Advair 500-50] 1 puff INH DAILY 10/31/12 [History] Aspirin [Guero Chewable Aspirin] 81 mg PO DAILY 01/26/14 [History] Latanoprost [Xalatan 0.005% Ophth Soln] 1 drop EYEBOTH BEDTIME 01/26/14 [History ] Multivitamin with Minerals [Multiple Vitamin] 1 tab PO DAILY 01/26/14 [History] Omeprazole 20 mg PO DAILY 08/05/16 [History] Hydrochlorothiazide 12.5 mg PO DAILY cap 08/06/16 [Rx] Albuterol Sulfate [Ventolin Hfa] 8 gm IH ASDIRECTED PRN 10/17/16 [History] Albuterol Sulfate [Proair Hfa] 2 puff INH Q4H PRN 03/01/17 [History] Calcium Carbonate [Calcium] 500 mg PO DAILY 03/01/17 [History] Polyethylene Glycol 3350 [MiraLAX] 8.5 g PO DAILY PRN 03/01/17 [History] Triamcinolone Acetonide [Triamcinolone Acetonide 0.1% Crm] 1 appful TOP BID 11/08 [History] Citalopram Hydrobromide [Celexa] 10 mg PO DAILY #30 tablet 03/16/17 [Rx] Amoxicillin/Potassium Clav [Amox-Clav 875-125 mg Tablet] 1 tab PO BID 05/06/17 [ History] Brimonidine Tartrate [Alphagan P 0.1% Ophth Soln] 1 drop TOP BID 05/06/17 [ History] Past Medical History HEENT History: Reports: Cataract, Glaucoma, Hard of Hearing Cardiovascular History: Reports: Arrhythmia, Hypertension, Other (See Below) Other Cardiovascular History: mitral valve prolapse Respiratory History: Reports: Asthma, Pneumonia, Recurrent Gastrointestinal History: Reports: GERD, Other (See Below) 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 Psychiatric History: Reports: Depression Hematologic History: Reports: Blood Transfusion(s) Immunologic History: Reports: Other (See Below) Other Immunologic History: hepatitis - Infectious Disease History Infectious Disease History: Reports: Chicken Pox, Measles, Mumps Other Infectious Disease History: states she has had hepatitis but does not know what kind. - Past Surgical History HEENT Surgical History: Reports: Cataract Surgery Cardiovascular Surgical History: Reports: None GI Surgical History: Reports: Colonoscopy, EGD Female Surgical History: Reports: Breast Biopsy Musculoskeletal Surgical History: Reports: Arthroscopic Knee, Hip Replacement Social & Family History - Family History Family Medical History: Noncontributory Oncologic: Reports: Esophageal - Tobacco Use Smoking Status *Q: Former Smoker Years of Tobacco use: 20 Packs/Tins Daily: 1 Used Tobacco, but Quit: Yes Month/Year Tobacco Last Used: many years ago Second Hand Smoke Exposure: No - Caffeine Use Caffeine Use: Reports: Coffee - Alcohol Use Days Per Week of Alcohol Use: 0 - Recreational Drug Use Recreational Drug Use: No - Living Situation & Occupation Living situation: Reports: Occupation: Retired (85 y/o female lives alone at her home on [facility]. one son, lives in [place]) ED ROS GENERAL - Review of Systems Review Of Systems: See Below Constitutional: Reports: Weakness, Fatigue, Diaphoresis, Decreased Appetite HEENT: Reports: Other (pt has a sore throat) Respiratory: Reports: Shortness of Breath, Wheezing, Cough, Sputum Cardiovascular: Reports: No Symptoms Endocrine: Reports: No Symptoms GI/Abdominal: Reports: No Symptoms : Reports: No Symptoms Musculoskeletal: Reports: No Symptoms Skin: Reports: No Symptoms Neurological: Reports: No Symptoms ED EXAM, GENERAL - Physical Exam Exam: See Below Free Text/Narrative:: pt arrived looking very fatiqued. She is coughing alot. She is raising some yellow sputum. Pt has been very wheezy. She lives alone and is having difficulty managing this situation. Exam Limited By: No Limitations General Appearance: Alert, Moderate Distress Ears: Normal TMs Nose: Normal Inspection Throat/Mouth: Normal Inspection Head: Atraumatic Neck: Normal Inspection Respiratory/Chest: Decreased Breath Sounds, Wheezing Cardiovascular: Regular Rate, Rhythm GI/Abdominal: Soft, Non-Tender, Other (mild left lower abdomanal tenderness. ) (Female) Exam: Deferred Rectal (Female) Exam: Deferred Back Exam: Normal Inspection Extremities: Other ( no edema. ) Neurological: Alert, Oriented, Normal Cognition Psychiatric: Normal Affect Course - Vital Signs Last Recorded V/S: Last Vital Signs Temp 35.5 C 06/09/17 08:30 Pulse 69 06/09/17 09:22 Resp 20 06/09/17 09:22 BP 153/61 H 06/09/17 09:22 Pulse Ox 94 L 06/09/17 09:22 - Orders/Labs/Meds Orders: Active Orders 24 hr Category Date Time Status RT Aerosol Therapy [RC] ASDIRECTED Care 06/09/17 08:47 Active CULTURE RESPIRATORY + SMEAR [RM] Stat Lab 06/09/17 08:47 Ordered CULTURE STREP A CONFIRMATION [RM] Stat Lab 06/09/17 09:04 Results STREP SCRN A RAPID W CULT CONF [RM] Stat Lab 06/09/17 09:04 Ordered UA W/MICROSCOPIC [URIN] Urgent Lab 06/09/17 09:22 Ordered Sodium Chloride 0.9% [Normal Saline] 1,000 ml Med 06/09/17 09:00 Active IV ASDIRECTED Sodium Chloride 0.9% [Saline Flush] Med 06/09/17 08:46 Active 10 ml FLUSH ASDIRECTED PRN Saline Lock Insert [OM.PC] Routine Oth 06/09/17 08:46 Ordered Medication Orders Sodium Chloride (Normal Saline) 1,000 mls @ 250 mls/hr IV ASDIRECTED RENETTA Last Admin: 06/09/17 09:18 Dose: 250 mls/hr Sodium Chloride (Saline Flush) 10 ml FLUSH ASDIRECTED PRN PRN Reason: Keep Vein Open Last Admin: 06/09/17 09:18 Dose: 10 ml Labs: Laboratory Tests 06/09/17 06/09/17 06/09/17 Range/Units 08:55 08:55 08:55 WBC 6.2 (4.5-11.0) K/uL RBC 4.11 (3.30-5.50) M/uL Hgb 12.5 (12.0-15.0) g/dL Hct 38.1 (36.0-48.0) % MCV 93 (80-98) fL MCH 30 (27-31) pg MCHC 33 (32-36) % Plt Count 230 (150-400) K/uL Neut % (Auto) 66 (36-66) % Lymph % (Auto) 12 L (24-44) % [place] % (Auto) 9 H (2-6) % Eos % (Auto) 12 H (2-4) % Baso % (Auto) 1 (0-1) % Sodium 141 (140-148) mmol/L Potassium 3.2 L (3.6-5.2) mmol/L Chloride 102 (100-108) mmol/L Carbon Dioxide 30 (21-32) mmol/L Anion Gap 12.2 (5.0-14.0) mmol/L BUN 19 H (7-18) mg/dL Creatinine 0.8 (0.6-1.0) mg/dL Est Cr Clr Drug Dosing 34.91 mL/min Estimated GFR (MDRD) > 60 (>60) Glucose 92 (74-106) mg/dL Calcium 8.8 (8.5-10.1) mg/dL Total Bilirubin 0.6 (0.2-1.0) mg/dL AST 26 (15-37) U/L ALT 26 (12-78) U/L Alkaline Phosphatase 117 H (46-116) U/L C-Reactive Protein 1.47 H (0.0-0.3) mg/dL Total Protein 7.2 (6.4-8.2) g/dL Albumin 3.6 (3.4-5.0) g/dL Globulin 3.6 H (2.3-3.5) g/dL Albumin/Globulin Ratio 1.0 L (1.2-2.2) Urine Color Urine Appearance Urine pH (4.5-8.0) Ur Specific [place] (1.008-1.030) Urine Protein (NEGATIVE) mg/dL Urine Glucose (UA) (NEGATIVE) mg/dL Urine Ketones (NEGATIVE) mg/dL Urine Occult Blood (NEGATIVE) Urine Nitrite (NEGATIVE) Urine Bilirubin (NEGATIVE) Urine Urobilinogen (NORMAL) mg/dL Ur Leukocyte Esterase (NEGATIVE) Urine RBC (0-5) Urine WBC (0-5) Ur Epithelial Cells Amorphous Sediment Urine Bacteria Urine Mucus 06/09/17 Range/Units 09:22 WBC (4.5-11.0) K/uL RBC (3.30-5.50) M/uL Hgb (12.0-15.0) g/dL Hct (36.0-48.0) % MCV (80-98) fL MCH (27-31) pg MCHC (32-36) % Plt Count (150-400) K/uL Neut % (Auto) (36-66) % Lymph % (Auto) (24-44) % [place] % (Auto) (2-6) % Eos % (Auto) (2-4) % Baso % (Auto) (0-1) % Sodium (140-148) mmol/L Potassium (3.6-5.2) mmol/L Chloride (100-108) mmol/L Carbon Dioxide (21-32) mmol/L Anion Gap (5.0-14.0) mmol/L BUN (7-18) mg/dL Creatinine (0.6-1.0) mg/dL Est Cr Clr Drug Dosing mL/min Estimated GFR (MDRD) (>60) Glucose (74-106) mg/dL Calcium (8.5-10.1) mg/dL Total Bilirubin (0.2-1.0) mg/dL AST (15-37) U/L ALT (12-78) U/L Alkaline Phosphatase (46-116) U/L C-Reactive Protein (0.0-0.3) mg/dL Total Protein (6.4-8.2) g/dL Albumin (3.4-5.0) g/dL Globulin (2.3-3.5) g/dL Albumin/Globulin Ratio (1.2-2.2) Urine Color Yellow Urine Appearance Clear Urine pH 6.5 (4.5-8.0) Ur Specific [place] 1.010 (1.008-1.030) Urine Protein Negative (NEGATIVE) mg/dL Urine Glucose (UA) Normal (NEGATIVE) mg/dL Urine Ketones Negative (NEGATIVE) mg/dL Urine Occult Blood Negative (NEGATIVE) Urine Nitrite Negative (NEGATIVE) Urine Bilirubin Negative (NEGATIVE) Urine Urobilinogen Normal (NORMAL) mg/dL Ur Leukocyte Esterase Negative (NEGATIVE) Urine RBC Not seen (0-5) Urine WBC Not seen (0-5) Ur Epithelial Cells Rare Amorphous Sediment Rare Urine Bacteria Not seen Urine Mucus Not seen Meds: Medications Generic Name Dose Route Start Last Admin Trade Name Freq PRN Reason Stop Dose Admin Sodium Chloride 1,000 mls @ 250 mls/hr 06/09/17 09:00 06/09/17 09:18 Normal Saline IV 250 mls/hr ASDIRECTED RENETTA Administration Sodium Chloride 10 ml 06/09/17 08:46 06/09/17 09:18 Saline Flush FLUSH 10 ml ASDIRECTED PRN Administration Keep Vein Open Discontinued Medications Generic Name Dose Route Start Last Admin Trade Name Freq PRN Reason Stop Dose Admin Albuterol 2.5 mg 06/09/17 08:47 06/09/17 08:57 Proventil Neb Soln NEB 06/09/17 08:48 2.5 mg ONETIME ONE Administration Methylprednisolone Sodium Succinate 125 mg 06/09/17 08:46 06/09/17 09:18 Solu-Medrol IVPUSH 06/09/17 08:47 125 mg ONETIME ONE Administration - Re-Assessments/Exams Free Text/Narrative Re-Assessment/Exam: 06/09/17 10:23 wbc is not elevated but she does have a lot of eosinophils, she did have a neb and solumedrol and she is better but she continues to have alot of rhonchi and wheezing. Departure - Departure Time of Disposition: 10:24 Disposition: Admitted As Inpatient 64 Condition: Fair Clinical Impression: COPD exacerbation, Bronchitis, Bronchospasm - Discharge Information Referrals: Ricky Traylor MD [Primary Care Provider] - Forms: ED Department Discharge Care Plan Goals: admit to Dr davidson - My Orders Last 24 Hours: My Active Orders 06/09/17 08:46 Sodium Chloride 0.9% [Saline Flush] 10 ml FLUSH ASDIRECTED PRN Saline Lock Insert [OM.PC] Routine 06/09/17 08:47 RT Aerosol Therapy [RC] ASDIRECTED CULTURE RESPIRATORY + SMEAR [RM] Stat 06/09/17 09:00 Sodium Chloride 0.9% [Normal Saline] 1,000 ml IV ASDIRECTED 06/09/17 09:04 CULTURE STREP A CONFIRMATION [RM] Stat STREP SCRN A RAPID W CULT CONF [RM] Stat 06/09/17 09:22 UA W/MICROSCOPIC [URIN] Urgent - Assessment/Plan Last 24 Hours: My Active Orders 06/09/17 08:46 Sodium Chloride 0.9% [Saline Flush] 10 ml FLUSH ASDIRECTED PRN Saline Lock Insert [OM.PC] Routine 06/09/17 08:47 RT Aerosol Therapy [RC] ASDIRECTED CULTURE RESPIRATORY + SMEAR [RM] Stat 06/09/17 09:00 Sodium Chloride 0.9% [Normal Saline] 1,000 ml IV ASDIRECTED 06/09/17 09:04 CULTURE STREP A CONFIRMATION [RM] Stat STREP SCRN A RAPID W CULT CONF [RM] Stat 06/09/17 09:22 UA W/MICROSCOPIC [URIN] Urgent
[2017-06-09] MEDS ORDERED: Sodium Chloride 0.9% 1,000 ML IV SCH (09:00)
--- NOTE | 2017-06-09 09:20 | CR ---
Chest 2V HISTORY: Shortness of breath, cough. COMPARISON: 03/14/2017. FINDINGS: Hyperinflation. Stable mild cardiomegaly. Prior cervical fusion. No focal infiltrates or ef fusions. No acute congestive change.
--- NOTE | 2017-06-09 10:47 | PCM.HP ---
H&P History of Present Illness - General Date of Service: 06/09/17 Source of Information: Patient, Old Records, Provider, RN Notes Reviewed History Limitations: Reports: No Limitations - History of Present Illness Initial Comments - Free Text/Narative: Ms. Prabhakar is an 86-year-old woman who is admitted to observation status through the emergency department with asthma exacerbation secondary to viral upper respiratory tract infection. She's not felt well over the past 5 days his developed nasal congestion with sore throat productive cough and shortness of breath. She has not had significant temperature elevations. She came in for evaluation in the emergency department this morning, vital signs have been stable, she is afebrile, with no significant hypoxia. White blood cell count is within normal range. - Related Data Allergies/Adverse Reactions: Allergies Allergy/AdvReac Type Severity Reaction Status Date / Time cefdinir Allergy Nausea and Verified 05/06/17 19:14 Vomiting ciprofloxacin Allergy Joint Pain Verified 05/06/17 19:14 fluconazole Allergy Other Verified 05/06/17 19:14 levofloxacin Allergy Joint Pain Verified 05/06/17 19:14 Sulfa (Sulfonamide Allergy Other Verified 05/06/17 19:14 Antibiotics) cefatrizine [Cefatrizine] AdvReac Vomiting Verified 05/06/17 19:14 Home Medications: Home Meds Fluticasone/Salmeterol [Advair 500-50] 1 puff INH DAILY 10/31/12 [History] Aspirin [Guero Chewable Aspirin] 81 mg PO DAILY 01/26/14 [History] Latanoprost [Xalatan 0.005% [facility] Soln] 1 drop EYEBOTH BEDTIME 01/26/14 [History ] Multivitamin with Minerals [Multiple Vitamin] 1 tab PO DAILY 01/26/14 [History] Omeprazole 20 mg PO DAILY 08/05/16 [History] Hydrochlorothiazide 12.5 mg PO DAILY cap 08/06/16 [Rx] Albuterol Sulfate [Ventolin Hfa] 8 gm IH ASDIRECTED PRN 10/17/16 [History] Albuterol Sulfate [Proair Hfa] 2 puff INH Q4H PRN 03/01/17 [History] Calcium Carbonate [Calcium] 500 mg PO DAILY 03/01/17 [History] Polyethylene Glycol 3350 [MiraLAX] 8.5 g PO DAILY PRN 03/01/17 [History] Triamcinolone Acetonide [Triamcinolone Acetonide 0.1% Crm] 1 appful TOP BID 11/08 [History] Citalopram Hydrobromide [Celexa] 10 mg PO DAILY #30 tablet 03/16/17 [Rx] Amoxicillin/Potassium Clav [Amox-Clav 875-125 mg Tablet] 1 tab PO BID 05/06/17 [ History] Brimonidine Tartrate [Alphagan P 0.1% Ophth Soln] 1 drop TOP BID 05/06/17 [ History] Past Medical History HEENT History: Reports: Cataract, Glaucoma, Hard of Hearing Cardiovascular History: Reports: Arrhythmia, Hypertension, Other (See Below) Other Cardiovascular History: mitral valve prolapse Respiratory History: Reports: Asthma, Pneumonia, Recurrent Gastrointestinal History: Reports: GERD, Other (See Below) 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 Psychiatric History: Reports: Depression Hematologic History: Reports: Blood Transfusion(s) Immunologic History: Reports: Other (See Below) Other Immunologic History: hepatitis - Infectious Disease History Infectious Disease History: Reports: Chicken Pox, Measles, Mumps Other Infectious Disease History: states she has had hepatitis but does not know what kind. - Past Surgical History HEENT Surgical History: Reports: Cataract Surgery Cardiovascular Surgical History: Reports: None GI Surgical History: Reports: Colonoscopy, EGD Female Surgical History: Reports: Breast Biopsy Musculoskeletal Surgical History: Reports: Arthroscopic Knee, Hip Replacement Social & Family History - Family History Family Medical History: Noncontributory Oncologic: Reports: Esophageal - Tobacco Use Smoking Status *Q: Former Smoker Years of Tobacco use: 20 Packs/Tins Daily: 1 Used Tobacco, but Quit: Yes Month/Year Tobacco Last Used: many years ago Second Hand Smoke Exposure: No - Caffeine Use Caffeine Use: Reports: Coffee - Alcohol Use Days Per Week of Alcohol Use: 0 - Recreational Drug Use Recreational Drug Use: No - Living Situation & Occupation Living situation: Reports: Occupation: Retired (85 y/o female lives alone at her home on [address]. one son, lives in [place]) H&P Review of Systems - Review of Systems: Review Of Systems: See Below General: Reports: Weakness, Decreased Appetite. Denies: Fever, Chills HEENT: Reports: No Symptoms Pulmonary: Reports: Shortness of Breath, Wheezing, Cough, Sputum. Denies: Pleuritic Chest Pain, Hemoptysis Cardiovascular: Reports: Dyspnea on Exertion. Denies: Chest Pain, Palpitations , Orthopnea, PND, Edema, Lightheadedness Gastrointestinal: Reports: No Symptoms Genitourinary: Reports: No Symptoms Musculoskeletal: Reports: No Symptoms Skin: Reports: No Symptoms Psychiatric: Reports: No Symptoms Neurological: Reports: No Symptoms Hematologic/Lymphatic: Reports: No Symptoms Immunologic: Reports: No Symptoms Exam - Exam Exam: See Below - Vital Signs Vital Signs: Last Vital Signs Temp 95.9 F 06/09/17 08:30 Pulse 69 06/09/17 09:22 Resp 20 06/09/17 09:22 BP 153/61 H 06/09/17 09:22 Pulse Ox 94 L 06/09/17 09:22 Weight: 119 lb 4.321 oz - Exam Quality Assessment: DVT Prophylaxis. No: Supplemental Oxygen General: Alert, Oriented, Cooperative, Mild Distress HEENT: Conjunctiva Clear, Hearing Intact, Normal Nasal Septum, Posterior Pharynx Clear, Pupils Equal. No: Mucosa Moist & [place] Neck: Supple, Trachea Midline, +2 Carotid Pulse wo Bruit Lungs: Decreased Breath Sounds, Rhonchi, Wheezing. No: Rales Cardiovascular: Regular Rate, Regular Rhythm, Normal S1, Normal S2. No: Systolic Murmur, Diastolic Murmur GI/Abdominal Exam: Soft, Non-Tender, No Organomegaly, No Distention Back Exam: Normal Inspection, Full Range of Motion Extremities: Normal Range of Motion, Non-Tender, No Pedal Edema Skin: Warm, Dry, Intact Neurological: Cranial Nerves Intact, Strength Equal Bilateral, Normal Speech, Normal Tone, Sensation Intact. No: Focal Deficit Neuro Extensive - Mental Status: Alert, Oriented x3, Normal Mood/Affect, Normal Cognition, Memory Intact - Patient Data Lab Results Last 24 hrs: Laboratory Results - last 24 hr 06/09/17 06/09/17 06/09/17 Range/Units 08:55 08:55 08:55 WBC 6.2 (4.5-11.0) K/uL RBC 4.11 (3.30-5.50) M/uL Hgb 12.5 (12.0-15.0) g/dL Hct 38.1 (36.0-48.0) % MCV 93 (80-98) fL MCH 30 (27-31) pg MCHC 33 (32-36) % Plt Count 230 (150-400) K/uL Neut % (Auto) 66 (36-66) % Lymph % (Auto) 12 L (24-44) % [place] % (Auto) 9 H (2-6) % Eos % (Auto) 12 H (2-4) % Baso % (Auto) 1 (0-1) % Sodium 141 (140-148) mmol/L Potassium 3.2 L (3.6-5.2) mmol/L Chloride 102 (100-108) mmol/L Carbon Dioxide 30 (21-32) mmol/L Anion Gap 12.2 (5.0-14.0) mmol/L BUN 19 H (7-18) mg/dL Creatinine 0.8 (0.6-1.0) mg/dL Est Cr Clr Drug Dosing 34.91 mL/min Estimated GFR (MDRD) > 60 (>60) Glucose 92 (74-106) mg/dL Calcium 8.8 (8.5-10.1) mg/dL Total Bilirubin 0.6 (0.2-1.0) mg/dL AST 26 (15-37) U/L ALT 26 (12-78) U/L Alkaline Phosphatase 117 H (46-116) U/L C-Reactive Protein 1.47 H (0.0-0.3) mg/dL Total Protein 7.2 (6.4-8.2) g/dL Albumin 3.6 (3.4-5.0) g/dL Globulin 3.6 H (2.3-3.5) g/dL Albumin/Globulin Ratio 1.0 L (1.2-2.2) Urine Color Urine Appearance Urine pH (4.5-8.0) Ur Specific [place] (1.008-1.030) Urine Protein (NEGATIVE) mg/dL Urine Glucose (UA) (NEGATIVE) mg/dL Urine Ketones (NEGATIVE) mg/dL Urine Occult Blood (NEGATIVE) Urine Nitrite (NEGATIVE) Urine Bilirubin (NEGATIVE) Urine Urobilinogen (NORMAL) mg/dL Ur Leukocyte Esterase (NEGATIVE) Urine RBC (0-5) Urine WBC (0-5) Ur Epithelial Cells Amorphous Sediment Urine Bacteria Urine Mucus 06/09/17 Range/Units 09:22 WBC (4.5-11.0) K/uL RBC (3.30-5.50) M/uL Hgb (12.0-15.0) g/dL Hct (36.0-48.0) % MCV (80-98) fL MCH (27-31) pg MCHC (32-36) % Plt Count (150-400) K/uL Neut % (Auto) (36-66) % Lymph % (Auto) (24-44) % [place] % (Auto) (2-6) % Eos % (Auto) (2-4) % Baso % (Auto) (0-1) % Sodium (140-148) mmol/L Potassium (3.6-5.2) mmol/L Chloride (100-108) mmol/L Carbon Dioxide (21-32) mmol/L Anion Gap (5.0-14.0) mmol/L BUN (7-18) mg/dL Creatinine (0.6-1.0) mg/dL Est Cr Clr Drug Dosing mL/min Estimated GFR (MDRD) (>60) Glucose (74-106) mg/dL Calcium (8.5-10.1) mg/dL Total Bilirubin (0.2-1.0) mg/dL AST (15-37) U/L ALT (12-78) U/L Alkaline Phosphatase (46-116) U/L C-Reactive Protein (0.0-0.3) mg/dL Total Protein (6.4-8.2) g/dL Albumin (3.4-5.0) g/dL Globulin (2.3-3.5) g/dL Albumin/Globulin Ratio (1.2-2.2) Urine Color Yellow Urine Appearance Clear Urine pH 6.5 (4.5-8.0) Ur Specific [place] 1.010 (1.008-1.030) Urine Protein Negative (NEGATIVE) mg/dL Urine Glucose (UA) Normal (NEGATIVE) mg/dL Urine Ketones Negative (NEGATIVE) mg/dL Urine Occult Blood Negative (NEGATIVE) Urine Nitrite Negative (NEGATIVE) Urine Bilirubin Negative (NEGATIVE) Urine Urobilinogen Normal (NORMAL) mg/dL Ur Leukocyte Esterase Negative (NEGATIVE) Urine RBC Not seen (0-5) Urine WBC Not seen (0-5) Ur Epithelial Cells Rare Amorphous Sediment Rare Urine Bacteria Not seen Urine Mucus Not seen Result Diagrams: 06/09/17 08:55 06/09/17 08:55 [place]ne Results Last 24 hrs: Microbiology 06/09/17 08:47 Gram Stain - Final Nasal Aspirate, Unspecified 06/09/17 09:04 Group A Streptococcus Rapid Screen - Final Throat NEGATIVE STREP A SCREEN *Q Meaningful Use (ADM) - VTE Risk Assess *Q Each Risk Factor Represents 1 Point: Abnormal Pulmonary Function (COPD) Total Score 1 Point Risk Factors: 1 Each Risk Factor Represents 2 Points: None Total Score 2 Point Risk Factors: 0 Each Risk Factor Represents 3 Points: Age 75 Years or Greater Total Score 3 Point Risk Factors: 3 Each Risk Factor Represents 5 Points: None Total Score 5 Point Risk Factors: 0 Venous Thromboembolism Risk Factor Score *Q: 4 Problem List Initiated/Reviewed/Updated: Yes Orders Last 24hrs: Active Orders 24 hr Category Date Time Status RT Aerosol Therapy [RC] ASDIRECTED Care 06/09/17 08:47 Active CULTURE RESPIRATORY + SMEAR [] Stat Lab 06/09/17 08:47 Ordered CULTURE STREP A CONFIRMATION [] Stat Lab 06/09/17 09:04 Results STREP SCRN A RAPID W CULT CONF [] Stat Lab 06/09/17 09:04 Ordered UA W/MICROSCOPIC [URIN] Urgent Lab 06/09/17 09:22 Ordered Sodium Chloride 0.9% [Normal Saline] 1,000 ml Med 06/09/17 09:00 Active IV ASDIRECTED Sodium Chloride 0.9% [Saline Flush] Med 06/09/17 08:46 Active 10 ml FLUSH ASDIRECTED PRN Saline Lock Insert [OM.PC] Routine Oth 06/09/17 08:46 Ordered Medication Orders Sodium Chloride (Normal Saline) 1,000 mls @ 250 mls/hr IV ASDIRECTED RENETTA Last Admin: 06/09/17 09:18 Dose: 250 mls/hr Sodium Chloride (Saline Flush) 10 ml FLUSH ASDIRECTED PRN PRN Reason: Keep Vein Open Last Admin: 06/09/17 09:18 Dose: 10 ml Assessment/Plan Comment:: ASSESSMENT / PLAN VIRAL UPPER RESPIRATORY TRACT INFECTION WITH EXACERBATION OF ASTHMA-no evidence of underlying bacterial infection or significant pneumonia. No indication for antibiotic therapy at the present time -IV fluids for hydration -nebulizer treatments as directed -Solu-Medrol 40 mg IV every 8 hours -robitussin AC 10ml every 4 hours prn painful cough HYPOKALEMIA -Potassium 40 mEq by mouth now and again this evening -recheck Potassium in am HYPERTENSION -Continue outpatient medical regimen MAINTENANCE ISSUES -Nutrition: Regular diet, gluten free -[place] catheter not indicated at this time -DVT: Lovenox 40 mg subcutaneous daily -GI Prophalaxis; not indicated CODE STATUS: Full ADMISSION STATUS: Admit to Observation -I expect this patient to stay less than 24 hours, not to exceed 96 hours for evaluation and management of this problem. DISPOSITION: home PRIMARY CARE PROVIDER: Dr. Traylor
[2017-06-09] MEDS ORDERED: Albuterol 8 GM Inhaler (PTOM) INH PRN (11:15)
[2017-06-09] MEDS ORDERED: Albuterol 0.083% 2.5 MG/3 ML Neb Soln NEB PRN (11:15)
[2017-06-09] MEDS ORDERED: Ondansetron 4 MG/2 ML SDV IV PRN (11:15)
[2017-06-09] MEDS ORDERED: Magnesium Hydroxide 400 MG/5 ML Susp 30 ML Cup PO PRN (11:15)
[2017-06-09] MEDS ORDERED: Acetaminophen 325 MG Tab PO PRN (11:15)
[2017-06-09] MEDS ORDERED: Polyethylene Glycol 3350 Powder 17 GM Packet PO PRN (11:15)
[2017-06-09] MEDS ORDERED: Potassium Chloride 20 MEQ Tab.ER PO ONE ×2 (11:45→17:00)
[2017-06-09] MEDS: Codeine/guaiFENesin 100mg-10 MG/5 ML Syrup 10 ML Cup PO PRN (12:12)
[2017-06-09] MEDS: Albuterol/Ipratropium 3.0-0.5 MG/3 ML Neb Soln NEB SCH ×2 (14:55→21:58)
[2017-06-09] MEDS: Sodium Chloride 0.9% 1,000 ML IV SCH (15:30)
[2017-06-09] MEDS: methylPREDNISolone Sodium Succinate 40 MG/1 ML SDV IVPUSH SCH (17:14)
[2017-06-09] MEDS ORDERED: Latanoprost 0.005% Ophth Soln 2.5 ML Bottle EYEBOTH SCH (21:00)
[2017-06-09] MEDS ORDERED: Brimonidine 0.1% Ophth Soln 5 ML Bottle EYEBOTH SCH (21:00)
[2017-06-09] MEDS: BRIMONIDINE 0.15% EYELF SCH (21:57)
[2017-06-09] MEDS: ADVAIR INH SCH (21:58)
[2017-06-10] MEDS: methylPREDNISolone Sodium Succinate 40 MG/1 ML SDV IVPUSH SCH ×3 (01:32→09:11)
[2017-06-10] MEDS: Sodium Chloride 0.9% 1,000 ML IV SCH (04:40)
[2017-06-10] MEDS: OMEPRAZOLE 20MG CAP (PTOM) PO SCH (07:07)
[2017-06-10] MEDS ORDERED: Benzocaine/Cetylpyridinium/Menthol Lozenge MUCMEM PRN (07:12)
[2017-06-10] MEDS: Albuterol/Ipratropium 3.0-0.5 MG/3 ML Neb Soln NEB SCH ×3 (07:56→14:36)
[2017-06-10] MEDS: ADVAIR INH SCH ×2 (08:00→21:06)
[2017-06-10] MEDS ORDERED: Aspirin 81 MG Tab.Chew PO SCH ×2 (09:00→21:00)
[2017-06-10] MEDS ORDERED: Non-Formulary Medication 1 Each (Fluticasone/Salmeterol [Advair 500-50] 1 PUFF) INH SCH (09:00)
[2017-06-10] MEDS ORDERED: Non-Formulary Medication 1 Each (Omeprazole [Omeprazole] 20 MG) PO SCH (09:00)
[2017-06-10] MEDS: BRIMONIDINE 0.15% EYELF SCH ×2 (09:10→21:03)
[2017-06-10] MEDS: HYDROCHLOROTHIAZIDE 12.5 MG PO SCH (09:11)
[2017-06-10] MEDS: Citalopram 10 MG Tab PO SCH (09:11)
[2017-06-10] MEDS: Enoxaparin 40 MG/0.4 ML Syringe SUBCUT SCH (09:11)
[2017-06-10] MEDS: Codeine/guaiFENesin 100mg-10 MG/5 ML Syrup 10 ML Cup PO PRN (09:50)
--- NOTE | 2017-06-10 17:32 | PCM.PN ---
- General Info Date of Service: 06/10/17 Subjective Update: Ms. Prabhakar has been stable since admission, oxygenation has been adequate on room air. She is been afebrile and otherwise hemodynamically stable. Continues to report shortness of breath which is worse than baseline as well as ongoing cough. Does not feel that she is able to tolerate Solu-Medrol or nebulizer therapy. - Review of Systems General: Reports: Weakness. Denies: Fever, Chills Pulmonary: Reports: Shortness of Breath, Cough, Sputum, Wheezing. Denies: Pleuritic Chest Pain, Hemoptysis Cardiovascular: Reports: Dyspnea on Exertion. Denies: Chest Pain, Palpitations , Orthopnea, PND, Edema, Lightheadedness Gastrointestinal: Reports: No Symptoms - Patient Data Vitals - Most Recent: Last Vital Signs Temp 98.5 F 06/10/17 16:05 Pulse 86 06/10/17 16:05 Resp 20 06/10/17 16:05 BP 139/45 L 06/10/17 16:05 Pulse Ox 96 06/10/17 16:05 Weight - Most Recent: 114 lb 4.32 oz I&O - Last 24 Hours: Intake & Output 06/10/17 06/10/17 06/10/17 06:59 14:59 22:59 Intake Total 1419 Balance 1419 Lab Results Last 24 Hours: Laboratory Results - last 24 hr 06/10/17 Range/Units 04:30 Potassium 4.8 (3.6-5.2) mmol/L [place]ayne Results Last 24 Hours: Microbiology 06/09/17 08:47 Gram Stain - Final Nasal Aspirate, Unspecified Respiratory Culture - Preliminary 06/09/17 09:04 Quick Strep Confirmation Culture - Preliminary Throat NO GROUP A STREP ISOLATED Group A Streptococcus Rapid Screen - Final NEGATIVE STREP A SCREEN Med Orders - Current: Current Medications Acetaminophen (Tylenol) 650 mg PO Q4H PRN PRN Reason: Pain (Mild 1-3)/fever Albuterol (Ventolin Hfa) 0 gm INH Q4H PRN PRN Reason: Shortness of Breath Aspirin (Aspirin) 81 mg PO BEDTIME [facility] Benzocaine/Menthol (Cepacol Sore Throat) 1 lozenge MUCMEM Q1H PRN PRN Reason: Sore Throat Last Admin: 06/10/17 09:50 Dose: 1 sinai Brimonidine Tartrate (Alphagan P 0.15% Ophth Soln) 0 ml EYELF BID [facility] Last Admin: 06/10/17 09:10 Dose: 1 drop Citalopram Hydrobromide (Celexa) 10 mg PO DAILY [facility] Last Admin: 06/10/17 09:11 Dose: 10 mg Enoxaparin Sodium (Lovenox) 40 mg SUBCUT DAILY [facility] Last Admin: 06/10/17 09:11 Dose: 40 mg Guaifenesin/Codeine Phosphate (Robitussin Ac) 10 ml PO Q4H PRN PRN Reason: Cough Last Admin: 06/10/17 09:50 Dose: 10 ml Hydrochlorothiazide (Hydrochlorothiazide) 12.5 mg PO DAILY [facility] Last Admin: 06/10/17 09:11 Dose: 12.5 mg Latanoprost (Xalatan 0.005% Ophth Soln) 0 ml EYEBOTH BEDTIME [facility] Magnesium Hydroxide (Milk Of Magnesia) 30 ml PO Q12H PRN PRN Reason: Constipation Ondansetron HCl (Zofran) 4 mg IV Q4H PRN PRN Reason: Nausea/Vomiting Omeprazole 20mg Cap ((Ptom)) 0 each PO ACBREAKFAST [facility] Last Admin: 06/10/17 07:07 Dose: 1 each Advair Diskus 500/50 ((Ptom)) 0 each INH BIDRT [facility] Last Admin: 06/10/17 08:00 Dose: 1 each Polyethylene Glycol (Miralax) 17 gm PO DAILY PRN PRN Reason: Constipation Prednisone (Prednisone) 40 mg PO WITHBREAKFAST [facility] Senna/Docusate Sodium (Senna Plus) 1 tab PO BID PRN PRN Reason: Constipation Sodium Chloride (Saline Flush) 10 ml FLUSH ASDIRECTED PRN PRN Reason: Keep Vein Open Discontinued Medications Albuterol (Proventil Neb Soln) 2.5 mg NEB ONETIME ONE Stop: 06/09/17 08:48 Last Admin: 06/09/17 08:57 Dose: 2.5 mg Albuterol (Proventil Neb Soln) 2.5 mg NEB Q4H PRN PRN Reason: Shortness Of Breath/wheezing Albuterol/Ipratropium (Duoneb 3.0-0.5 Mg/3 Ml) 3 ml NEB QIDRT [facility] Last Admin: 06/10/17 14:36 Dose: Not Given Sodium Chloride (Normal Saline) 1,000 mls @ 250 mls/hr IV ASDIRECTED [facility] Last Admin: 06/09/17 09:18 Dose: 250 mls/hr Sodium Chloride (Normal Saline) 1,000 mls @ 75 mls/hr IV ASDIRECTED [facility] Last Admin: 06/10/17 04:40 Dose: 75 mls/hr Methylprednisolone Sodium Succinate (Solu-Medrol) 125 mg IVPUSH ONETIME ONE Stop: 06/09/17 08:47 Last Admin: 06/09/17 09:18 Dose: 125 mg Methylprednisolone Sodium Succinate (Solu-Medrol) 40 mg IVPUSH Q8H [facility] Last Admin: 06/10/17 09:00 Dose: Not Given Potassium Chloride (Klor-Con M20) 40 meq PO ONETIME ONE Stop: 06/09/17 11:46 Last Admin: 06/09/17 12:55 Dose: 40 meq Potassium Chloride (Klor-Con M20) 40 meq PO ONETIME ONE Stop: 06/09/17 17:01 Last Admin: 06/09/17 17:14 Dose: 40 meq Sodium Chloride (Saline Flush) 10 ml FLUSH ASDIRECTED PRN PRN Reason: Keep Vein Open Last Admin: 06/09/17 09:18 Dose: 10 ml - Exam Quality Assessment: DVT Prophylaxis. No: Supplemental Oxygen General: Alert, Oriented, Cooperative, Mild Distress Lungs: Decreased Breath Sounds, Rhonchi, Wheezing. No: Rales Cardiovascular: Regular Rate, Regular Rhythm, No Murmurs GI/Abdominal Exam: Soft, Non-Tender, No Organomegaly, No Distention Extremities: Non-Tender, No Pedal Edema Skin: Warm, Dry - Problem List Review Problem List Initiated/Reviewed/Updated: Yes - My Orders Last 24 Hours: My Active Orders 06/09/17 21:00 Brimonidine [Alphagan P 0.15% Ophth Soln] 0 ml EYELF BID Patient's Own Medication [Ptom] 0 each INH BIDRT 06/10/17 07:12 Benzocaine/Cetylpyrd/Menthol [Cepacol Sore Throat] 1 lozenge MUCMEM Q1H PRN 06/10/17 07:30 Patient's Own Medication [Ptom] 0 each PO ACBREAKFAST 06/10/17 09:00 Citalopram [Celexa] 10 mg PO DAILY Enoxaparin [Lovenox] 40 mg SUBCUT DAILY Hydrochlorothiazide 12.5 mg PO DAILY 06/10/17 09:09 RT Acapella [RESPCARE] Routine 06/10/17 16:55 Convert IV to Saline Lock [OM.PC] Routine 06/10/17 21:00 Aspirin 81 mg PO BEDTIME Latanoprost [Xalatan 0.005% Ophth Soln] 0 ml EYEBOTH BEDTIME 06/11/17 08:00 predniSONE 40 mg PO WITHBREAKFAST - Plan Plan:: ASSESSMENT / PLAN VIRAL UPPER RESPIRATORY TRACT INFECTION WITH EXACERBATION OF ASTHMA-no evidence of underlying bacterial infection or significant pneumonia. No indication for antibiotic therapy at the present time. Continued symptoms of shortness of breath and cough, oxygenation has been adequate on room air -Saline lock IV -Prednisone 40 mg by mouth daily -robitussin AC 10ml every 4 hours prn painful cough HYPOKALEMIA-resolved HYPERTENSION -Continue outpatient medical regimen MAINTENANCE ISSUES -Nutrition: Regular diet, gluten free -Tinoco catheter not indicated at this time -DVT: Lovenox 40 mg subcutaneous daily -GI Prophalaxis; not indicated CODE STATUS: Full ADMISSION STATUS: Admit to Observation -I expect this patient to stay less than 24 hours, not to exceed 96 hours for evaluation and management of this problem. DISPOSITION: home PRIMARY CARE PROVIDER: Dr. Traylor
[2017-06-10] MEDS ORDERED: Latanoprost 0.005% Ophth Soln 2.5 ML Bottle EYEBOTH SCH (21:00)
[2017-06-11] MEDS: ADVAIR INH SCH (07:25)
[2017-06-11] MEDS: OMEPRAZOLE 20MG CAP (PTOM) PO SCH (07:44)
[2017-06-11] MEDS ORDERED: predniSONE 20 MG Tab PO SCH (08:00)
[2017-06-11] MEDS: BRIMONIDINE 0.15% EYELF SCH (09:29)
[2017-06-11] MEDS: Citalopram 10 MG Tab PO SCH (09:29)
[2017-06-11] MEDS: HYDROCHLOROTHIAZIDE 12.5 MG PO SCH (09:29)
[2017-06-11] MEDS: Enoxaparin 40 MG/0.4 ML Syringe SUBCUT SCH (09:29)
[2017-06-11] MEDS: Codeine/guaiFENesin 100mg-10 MG/5 ML Syrup 10 ML Cup PO PRN (09:30)
[2017-06-11 10:48] VITALS: BP 148/61
--- NOTE | 2017-06-11 11:21 | PCM.DCSUM1 ---
Discharge Summary - Hospital Course Brief History: Ms. Prabhakar is an 86-year-old woman who is admitted to observation status through the emergency department with asthma exacerbation secondary to a viral upper respiratory tract infection. - Discharge Data Discharge Date: 06/11/17 Discharge Disposition: Home, Self-Care 01 Condition: Fair - Discharge Diagnosis/Problem(s) (1) Viral upper respiratory tract infection SNOMED Code(s): 430866107 ICD Code: J06.9 - ACUTE UPPER RESPIRATORY INFECTION, UNSPECIFIED Status: Acute Current Visit: Yes (2) Asthma SNOMED Code(s): 876031091 ICD Code: J45.909 - UNSPECIFIED ASTHMA, UNCOMPLICATED Status: Chronic Current Visit: No - Patient Summary/Data Hospital Course: Ms. Prabhakar is an 86-year-old woman who is admitted to observation status through the emergency department with asthma exacerbation secondary to viral upper respiratory tract infection. She's not felt well over the past 5 days and developed nasal congestion with sore throat productive cough and shortness of breath. She has not had significant temperature elevations. She came in for evaluation in the emergency department this morning, vital signs have been stable, she is afebrile, with no significant hypoxia. White blood cell count is within normal range. Chest x-ray showed no obvious infiltrates. She was admitted to the hospital and given IV fluids for hydration as well as nebulizer therapy and IV Solu-Medrol. She was not placed on antibiotic therapy is her was no indication of underlying bacterial infection and she did not require supplemental oxygen. She felt that she developed increased anxiety and flushed feeling from nebulizers in the Solu-Medrol, nebulizers were discontinued and she was switched from Solu-Medrol to oral prednisone. By the day of discharge her expiratory wheezing had improved significantly. She will be discharged home on additional 4 days of oral prednisone 40 mg daily. Activity will be as tolerated and she will resume her usual diet. Follow-up appointment will be scheduled with her primary care provider within one week. - Patient Instructions Diet: Usual Diet as Tolerated Activity: As Tolerated Other/Special Instructions: Please schedule follow-up appointment with primary care provider within one week. - Discharge Plan Prescriptions/Med Rec: Prednisone [IJD: predniSONE] 40 mg PO DAILY #8 tab Home Medications: Home Meds Fluticasone/Salmeterol [Advair 500-50] 1 puff INH DAILY 10/31/12 [History] Aspirin [Guero Chewable Aspirin] 81 mg PO DAILY 01/26/14 [History] Multivitamin with Minerals [Multiple Vitamin] 1 tab PO DAILY 01/26/14 [History] Omeprazole 20 mg PO DAILY 08/05/16 [History] Hydrochlorothiazide 12.5 mg PO DAILY cap 08/06/16 [Rx] Albuterol Sulfate [Ventolin Hfa] 8 gm IH ASDIRECTED PRN 10/17/16 [History] Albuterol Sulfate [Proair Hfa] 2 puff INH Q4H PRN 03/01/17 [History] Calcium Carbonate [Calcium] 500 mg PO DAILY 03/01/17 [History] Polyethylene Glycol 3350 [MiraLAX] 8.5 g PO DAILY PRN 03/01/17 [History] Citalopram Hydrobromide [Celexa] 10 mg PO DAILY #30 tablet 03/16/17 [Rx] Brimonidine [Alphagan P 0.15% Ophth Soln] 1 drop EYELF BID 06/09/17 [History] Fluticasone/Salmeterol [Advair 500-50] 1 puff INH BID 06/09/17 [History] LORazepam 0.5 mg PO ASDIRECTED PRN 06/09/17 [History] Latanoprost 2.5 ml OP BEDTIME 06/10/17 [History] Prednisone [IJD: predniSONE] 40 mg PO DAILY #8 tab 06/11/17 [Rx] Referrals: Ricky Traylor MD [Primary Care Provider] - 06/17/17 2:40 pm - Discharge Summary/Plan Comment DC Time >30 min.: No - Patient Data Vitals - Most Recent: Last Vital Signs Temp 98.7 F 06/11/17 10:46 Pulse 82 06/11/17 10:46 Resp 16 06/11/17 10:46 BP 148/61 H 06/11/17 10:46 Pulse Ox 93 L 06/11/17 10:46 Weight - Most Recent: 114 lb 4.32 oz I&O - Last 24 hours: Intake & Output 06/10/17 06/11/17 06/11/17 22:59 06:59 14:59 Intake Total 2057 Balance 2057 BEA Results - Last 24 hrs: Microbiology 06/09/17 08:47 Gram Stain - Final Nasal Aspirate, Unspecified Respiratory Culture - Preliminary 06/09/17 09:04 Quick Strep Confirmation Culture - Final Throat NO GROUP A STREP ISOLATED Group A Streptococcus Rapid Screen - Final NEGATIVE STREP A SCREEN Med Orders - Current: Current Medications Acetaminophen (Tylenol) 650 mg PO Q4H PRN PRN Reason: Pain (Mild 1-3)/fever Albuterol (Ventolin Hfa) 0 gm INH Q4H PRN PRN Reason: Shortness of Breath Last Admin: 06/10/17 20:59 Dose: 2 puff Aspirin (Aspirin) 81 mg PO BEDTIME [facility] Last Admin: 06/10/17 21:03 Dose: 81 mg Benzocaine/Menthol (Cepacol Sore Throat) 1 lozenge MUCMEM Q1H PRN PRN Reason: Sore Throat Last Admin: 06/10/17 09:50 Dose: 1 sinai Brimonidine Tartrate (Alphagan P 0.15% Ophth Soln) 0 ml EYELF BID [facility] Last Admin: 06/11/17 09:29 Dose: 1 drop Citalopram Hydrobromide (Celexa) 10 mg PO DAILY [facility] Last Admin: 06/11/17 09:29 Dose: 10 mg Enoxaparin Sodium (Lovenox) 40 mg SUBCUT DAILY [facility] Last Admin: 06/11/17 09:29 Dose: 40 mg Guaifenesin/Codeine Phosphate (Robitussin Ac) 10 ml PO Q4H PRN PRN Reason: Cough Last Admin: 06/11/17 09:30 Dose: 10 ml Hydrochlorothiazide (Hydrochlorothiazide) 12.5 mg PO DAILY [facility] Last Admin: 06/11/17 09:29 Dose: 12.5 mg Latanoprost (Xalatan 0.005% Ophth Soln) 0 ml EYEBOTH BEDTIME [facility] Last Admin: 06/10/17 21:05 Dose: 1 drop Magnesium Hydroxide (Milk Of Magnesia) 30 ml PO Q12H PRN PRN Reason: Constipation Ondansetron HCl (Zofran) 4 mg IV Q4H PRN PRN Reason: Nausea/Vomiting Omeprazole 20mg Cap ((Ptom)) 0 each PO ACBREAKFAST [facility] Last Admin: 06/11/17 07:44 Dose: 1 each Advair Diskus 500/50 ((Ptom)) 0 each INH BIDRT [facility] Last Admin: 06/11/17 07:25 Dose: 1 each Polyethylene Glycol (Miralax) 17 gm PO DAILY PRN PRN Reason: Constipation Prednisone (Prednisone) 40 mg PO WITHBREAKFAST [facility] Last Admin: 06/11/17 09:28 Dose: 40 mg Senna/Docusate Sodium (Senna Plus) 1 tab PO BID PRN PRN Reason: Constipation Sodium Chloride (Saline Flush) 10 ml FLUSH ASDIRECTED PRN PRN Reason: Keep Vein Open Discontinued Medications Albuterol (Proventil Neb Soln) 2.5 mg NEB ONETIME ONE Stop: 06/09/17 08:48 Last Admin: 06/09/17 08:57 Dose: 2.5 mg Albuterol (Proventil Neb Soln) 2.5 mg NEB Q4H PRN PRN Reason: Shortness Of Breath/wheezing Albuterol/Ipratropium (Duoneb 3.0-0.5 Mg/3 Ml) 3 ml NEB QIDRT [facility] Last Admin: 06/10/17 14:36 Dose: Not Given Sodium Chloride (Normal Saline) 1,000 mls @ 250 mls/hr IV ASDIRECTED [facility] Last Admin: 06/09/17 09:18 Dose: 250 mls/hr Sodium Chloride (Normal Saline) 1,000 mls @ 75 mls/hr IV ASDIRECTED [facility] Last Admin: 06/10/17 04:40 Dose: 75 mls/hr Methylprednisolone Sodium Succinate (Solu-Medrol) 125 mg IVPUSH ONETIME ONE Stop: 06/09/17 08:47 Last Admin: 06/09/17 09:18 Dose: 125 mg Methylprednisolone Sodium Succinate (Solu-Medrol) 40 mg IVPUSH Q8H [facility] Last Admin: 06/10/17 09:00 Dose: Not Given Potassium Chloride (Klor-Con M20) 40 meq PO ONETIME ONE Stop: 06/09/17 11:46 Last Admin: 06/09/17 12:55 Dose: 40 meq Potassium Chloride (Klor-Con M20) 40 meq PO ONETIME ONE Stop: 06/09/17 17:01 Last Admin: 06/09/17 17:14 Dose: 40 meq Sodium Chloride (Saline Flush) 10 ml FLUSH ASDIRECTED PRN PRN Reason: Keep Vein Open Last Admin: 06/09/17 09:18 Dose: 10 ml - Exam General: Reports: Alert, Oriented, Cooperative, No Acute Distress Lungs: Reports: Decreased Breath Sounds, Rhonchi. Denies: Crackles, Rales, Wheezing Cardiovascular: Reports: Regular Rate, Regular Rhythm, No Murmurs GI/Abdominal Exam: Soft, Non-Tender, No Organomegaly, No Distention Extremities: Non-Tender, No Pedal Edema Skin: Reports: Warm, Dry, Intact
== END 2017-06-11 13:00 | disposition home or self-care (01) ==
LOC: JP.ED 08:13 → JP.MS 10:48
PROVIDERS: ADMIT Hospitalist; ATTEND Hospitalist
DX: J06.9 Acute upper respiratory infection, unspecified (principal); J45.909 Unspecified asthma, uncomplicated; I10 Essential (primary) hypertension; K21.9 Gastro-esophageal reflux disease without esophagitis; F32.9 Major depressive disorder, single episode, unspecified; Z79.82 Long term (current) use of aspirin; Z79.899 Other long term (current) drug therapy; Z88.1 Allergy status to other antibiotic agents; Z88.2 Allergy status to sulfonamides; Z88.8 Allergy status to other drugs, medicaments and biological substances; Z87.891 Personal history of nicotine dependence
CPT/HCPCS: 36415; 71046; 80053; 81001; 84132; 85025; 86140; 87070; 87081; 87205; 87430; 94640; 94664; 94667; 96361; 96374; 99285; A9270; J1650; J2920; J2930; J7040; J7050; J7620; 96372; 96376; 99284; G0378

== ENCOUNTER 2017-06-17 09:49 | Emergency (ER) | payer MEDICARE, OTHER ==
[2017-06-17 09:53] VITALS: BP 185/73
--- NOTE | 2017-06-17 10:45 | EDM.PDOC ---
ED HPI GENERAL MEDICAL PROBLEM - General Chief Complaint: Respiratory Problem Stated Complaint: WEAKNESS Time Seen by Provider: 06/17/17 10:07 Source of Information: Reports: Patient, Old Records, Provider, RN Notes Reviewed History Limitations: Reports: No Limitations - History of Present Illness INITIAL COMMENTS - FREE TEXT/NARRATIVE: 86-year-old female resents emergency department day complaint of weakness and not feeling well having no energy. She was recently discharged from the hospital on 11 June 6 days prior for thought to have a viral upper respiratory tract infection. Does have a history of lung disease was on a short course of prednisone. She admits to being depressed denies suicidal ideation does take citalopram 10 mg however not sure she is taking the medication. I have discussed her care with her primary care provider who states she will start and stop medication as she feels fit, she lives alone does not have access to a washer and dryer in the wintertime and will becomes snow bound for several weeks at a time due to her living situation. She has one son living in [place] who she used to winter with however she has stopped doing this because has become so difficult to travel. - Related Data Allergies Allergy/AdvReac Type Severity Reaction Status Date / Time fluconazole Allergy Other Verified 05/06/17 19:14 Sulfa (Sulfonamide Allergy Other Verified 05/06/17 19:14 Antibiotics) cefatrizine [Cefatrizine] AdvReac Vomiting Verified 05/06/17 19:14 cefdinir AdvReac Nausea and Verified 06/09/17 11:27 Vomiting ciprofloxacin AdvReac Joint Pain Verified 06/09/17 11:27 levofloxacin AdvReac Joint Pain Verified 06/09/17 11:27 Home Meds: Home Meds Fluticasone/Salmeterol [Advair 500-50] 1 puff INH DAILY 10/31/12 [History] Aspirin [Guero Chewable Aspirin] 81 mg PO DAILY 01/26/14 [History] Multivitamin with Minerals [Multiple Vitamin] 1 tab PO DAILY 01/26/14 [History] Omeprazole 20 mg PO DAILY 08/05/16 [History] Hydrochlorothiazide 12.5 mg PO DAILY cap 08/06/16 [Rx] Albuterol Sulfate [Ventolin Hfa] 8 gm IH ASDIRECTED PRN 10/17/16 [History] Albuterol Sulfate [Proair Hfa] 2 puff INH Q4H PRN 03/01/17 [History] Calcium Carbonate [Calcium] 500 mg PO DAILY 03/01/17 [History] Polyethylene Glycol 3350 [MiraLAX] 8.5 g PO DAILY PRN 03/01/17 [History] Citalopram Hydrobromide [Celexa] 10 mg PO DAILY #30 tablet 03/16/17 [Rx] Brimonidine [Alphagan P 0.15% Ophth Soln] 1 drop EYELF BID 06/09/17 [History] Fluticasone/Salmeterol [Advair 500-50] 1 puff INH BID 06/09/17 [History] LORazepam 0.5 mg PO ASDIRECTED PRN 06/09/17 [History] Latanoprost 2.5 ml OP BEDTIME 06/10/17 [History] Past Medical History HEENT History: Reports: Cataract, Glaucoma, Hard of Hearing Cardiovascular History: Reports: Arrhythmia, Hypertension, Other (See Below) Other Cardiovascular History: mitral valve prolapse Respiratory History: Reports: Asthma, Pneumonia, Recurrent Gastrointestinal History: Reports: GERD, Other (See Below) 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 Psychiatric History: Reports: Depression Hematologic History: Reports: Blood Transfusion(s) Immunologic History: Reports: Other (See Below) Other Immunologic History: hepatitis - Infectious Disease History Infectious Disease History: Reports: Chicken Pox, Measles, Mumps Other Infectious Disease History: states she has had hepatitis but does not know what kind. - Past Surgical History HEENT Surgical History: Reports: Cataract Surgery Cardiovascular Surgical History: Reports: None GI Surgical History: Reports: Colonoscopy, EGD Female Surgical History: Reports: Breast Biopsy Musculoskeletal Surgical History: Reports: Arthroscopic Knee, Hip Replacement Social & Family History - Family History Family Medical History: Noncontributory Oncologic: Reports: Esophageal - Tobacco Use Smoking Status *Q: Never Smoker Years of Tobacco use: 20 Packs/Tins Daily: 1 Used Tobacco, but Quit: Yes Month/Year Tobacco Last Used: many years ago Second Hand Smoke Exposure: No - Caffeine Use Caffeine Use: Reports: Coffee - Alcohol Use Days Per Week of Alcohol Use: 0 - Recreational Drug Use Recreational Drug Use: No - Living Situation & Occupation Living situation: Reports: Occupation: Retired (85 y/o female lives alone at her home on [address]. one son, lives in [place]) ED ROS GENERAL - Review of Systems Review Of Systems: See Below Constitutional: Reports: Weakness, Fatigue HEENT: Reports: No Symptoms Respiratory: Reports: Cough, Sputum Cardiovascular: Reports: No Symptoms GI/Abdominal: Reports: No Symptoms : Reports: No Symptoms Musculoskeletal: Reports: No Symptoms Skin: Reports: No Symptoms Neurological: Reports: No Symptoms Psychiatric: Reports: Depression ED EXAM, GENERAL - Physical Exam Exam: See Below Exam Limited By: No Limitations General Appearance: Alert, WD/WN, No Apparent Distress Respiratory/Chest: No Respiratory Distress, Rhonchi, Prolonged Expiration. No: No Accessory Muscle Use, Accessory Muscle Use Cardiovascular: Regular Rate, Rhythm, No Murmur Psychiatric: Depressed Mood, Tearful Course - Vital Signs Last Recorded V/S: Last Vital Signs Temp 97.8 F 06/17/17 09:52 Pulse 84 06/17/17 09:52 Resp 18 06/17/17 09:52 BP 185/73 H 06/17/17 09:52 Pulse Ox 98 06/17/17 09:52 Departure - Departure Time of Disposition: 12:01 Disposition: Home, Self-Care 01 Condition: Poor Clinical Impression: Depression Qualifiers: Depression Type: major depressive disorder Major depression recurrence: recurrent Active/Remission status: currently active Major depression episode severity: moderate Qualified Code(s): F33.1 - Major depressive disorder, recurrent, moderate - Discharge Information Referrals: Ricky Traylor MD [Primary Care Provider] - Forms: ED Department Discharge Additional Instructions: Please keep your follow-up appointment with your primary care provider at 2:30 this afternoon she - Assessment/Plan Plan: Assessment Acuity = chronic Site and laterality = depression Etiology = underlying major depressive disorder Manifestations = weakness and fatigue Location of injury = Home Lab values = none Plan We did have discharge planning, and consult with her offered several services home care, adult assisted living, [facility] she declined all these services states she just wants to be admitted the hospital for some good food and some sleep, I felt this is not an appropriate medical admission therefore she is discharged home she does have an appointment with her primary care provider who we have updated on the situation she is on antidepressant however I'm not sure she is taking this medication and she certainly could benefit from additional services but she has declined thus far This note was dictated using [employer] voice recognition software please call with any questions on syntax or margo.
== END 2017-06-17 12:15 | disposition home or self-care (01) ==
LOC: JP.ED 09:49
DX: F33.1 Major depressive disorder, recurrent, moderate (principal); I10 Essential (primary) hypertension; Z88.8 Allergy status to other drugs, medicaments and biological substances; Z88.2 Allergy status to sulfonamides; Z88.1 Allergy status to other antibiotic agents; Z79.82 Long term (current) use of aspirin; Z79.899 Other long term (current) drug therapy; Z87.891 Personal history of nicotine dependence
CPT/HCPCS: 99285

== ENCOUNTER 2018-03-31 06:46 | Inpatient (IN) | payer MEDICARE, OTHER ==
[2018-03-31] MEDS ORDERED: Bupivacaine 0.5%/EPINEPHrine 1:200,000 50 ML MDV ONE (06:58)
[2018-03-31] MEDS ORDERED: fentaNYL 100 MCG/2 ML SDV ONE (07:12)
[2018-03-31] MEDS ORDERED: Propofol 200 MG/20 ML SDV ONE ×2 (07:13→09:42)
[2018-03-31] MEDS ORDERED: Bupivacaine 0.5% 50 ML MDV ONE (07:18)
[2018-03-31] MEDS ORDERED: Lidocaine 1% with EPINEPHrine 1:100,000 50 ML MDV ONE (07:18)
[2018-03-31] MEDS ORDERED: Acetaminophen 500 MG Tab PO ONE (07:30)
[2018-03-31] MEDS ORDERED: ceFAZolin 2 GM in Premix Bag 1 BAG IV ONE (07:30)
[2018-03-31] MEDS ORDERED: Albuterol/Ipratropium 3.0-0.5 MG/3 ML Neb Soln NEB ONE (07:30)
[2018-03-31] MEDS: Dextrose 5%-Lactated Ringers 1,000 ML IV SCH ×2 (08:04→23:15)
[2018-03-31] MEDS ORDERED: Ketorolac 30 MG/ML SDV IM ONE (10:17)
[2018-03-31] MEDS ORDERED: Albuterol/Ipratropium 3.0-0.5 MG/3 ML Neb Soln INH PRN (11:27)
[2018-03-31] MEDS ORDERED: LORazepam 0.5 MG Tab PO PRN (11:29)
[2018-03-31] MEDS: HYDROmorphone 2 MG Tab PO PRN ×2 (11:34→19:43)
[2018-03-31] MEDS ORDERED: Pantoprazole 40 MG Tab.CR PO SCH (14:00)
[2018-03-31] MEDS: Acetaminophen 325 MG Tab PO SCH ×2 (14:15→19:39)
[2018-03-31] MEDS: HYDROCHLOROTHIAZIDE 12.5 MG PO SCH (14:15)
[2018-03-31] MEDS: OMEPRAZOLE 20MG CAP (PTOM) PO SCH (14:15)
[2018-03-31] MEDS: Albuterol/Ipratropium 3.0-0.5 MG/3 ML Neb Soln INH SCH ×2 (14:48→21:17)
[2018-03-31] MEDS: Latanoprost 0.005% Ophth Soln (PTOM) EYEBOTH SCH (21:17)
[2018-04-01] MEDS: Acetaminophen 325 MG Tab PO SCH ×4 (02:40→20:12)
[2018-04-01] MEDS: HYDROmorphone 2 MG Tab PO PRN (07:14)
[2018-04-01] MEDS: Albuterol/Ipratropium 3.0-0.5 MG/3 ML Neb Soln INH SCH ×4 (07:15→20:12)
[2018-04-01] MEDS: OMEPRAZOLE 20MG CAP (PTOM) PO SCH (08:11)
[2018-04-01] MEDS: [UNRECOGNIZED DRUG - OTHER] INH SCH (08:11)
[2018-04-01] MEDS: Aspirin 81 MG Tab.Chew PO SCH (08:12)
[2018-04-01] MEDS: HYDROCHLOROTHIAZIDE 12.5 MG PO SCH (08:13)
[2018-04-01] MEDS: Bisacodyl 5 MG Tab PO SCH ×2 (08:16→20:12)
[2018-04-01] MEDS: Docusate Sodium 100 MG Cap PO SCH ×2 (08:16→20:12)
[2018-04-01] MEDS: Latanoprost 0.005% Ophth Soln (PTOM) EYEBOTH SCH (20:13)
[2018-04-02] MEDS: Acetaminophen 325 MG Tab PO SCH ×4 (02:55→19:29)
[2018-04-02] MEDS: [UNRECOGNIZED DRUG - OTHER] INH SCH (07:17)
[2018-04-02] MEDS: OMEPRAZOLE 20MG CAP (PTOM) PO SCH (07:17)
[2018-04-02] MEDS: Albuterol/Ipratropium 3.0-0.5 MG/3 ML Neb Soln INH SCH ×4 (07:48→21:21)
[2018-04-02] MEDS ORDERED: Magnesium Hydroxide 400 MG/5 ML Susp 30 ML Cup PO ONE ×2 (09:00→18:00)
[2018-04-02] MEDS: HYDROCHLOROTHIAZIDE 12.5 MG PO SCH (09:38)
[2018-04-02] MEDS: Bisacodyl 5 MG Tab PO SCH ×2 (09:38→21:21)
[2018-04-02] MEDS: Docusate Sodium 100 MG Cap PO SCH ×2 (09:38→21:21)
[2018-04-02] MEDS: Aspirin 81 MG Tab.Chew PO SCH (09:38)
--- NOTE | 2018-04-02 13:52 | PN ---
DATE OF SERVICE: 04/02/2018 The patient, at this point, is still not adequately mobile to be going home yet. We will give her 1 more day with pain medication. She also has not moved her bowels yet, and we will begin some milk of magnesia in addition to the Colace and Dulcolax oral tablets today. She will likely be ready for discharge home tomorrow. Jun Radford MD /[id number]
[2018-04-02] MEDS: Latanoprost 0.005% Ophth Soln (PTOM) EYEBOTH SCH (21:21)
[2018-04-03] MEDS: Acetaminophen 325 MG Tab PO SCH ×2 (01:28→07:43)
--- NOTE | 2018-04-03 07:52 | PN ---
DATE OF SERVICE: 04/01/2018 The patient is postop day 1 from repair of an incarcerated left femoral hernia along with a smaller direct hernia and suture at a location where there was a site deserosalization of her sigmoid colon. Clinically, she has done well overnight. She is eating breakfast and having a fair bit of pain at this point but following oral pain medication regimen. We will plan to discharge her likely tomorrow with home care being set up in the interim. Jun Radford MD /[id number]
[2018-04-03] MEDS: Albuterol/Ipratropium 3.0-0.5 MG/3 ML Neb Soln INH SCH ×2 (08:00→11:14)
[2018-04-03] MEDS: [UNRECOGNIZED DRUG - OTHER] INH SCH (08:15)
[2018-04-03] MEDS: Aspirin 81 MG Tab.Chew PO SCH (08:50)
[2018-04-03] MEDS: Docusate Sodium 100 MG Cap PO SCH (08:50)
[2018-04-03] MEDS: Bisacodyl 5 MG Tab PO SCH (08:50)
[2018-04-03] MEDS: OMEPRAZOLE 20MG CAP (PTOM) PO SCH (08:52)
[2018-04-03] MEDS ORDERED: Hydrochlorothiazide 12.5 MG Cap PO SCH (09:00)
[2018-04-03 11:50] VITALS: BP 143/43
--- NOTE | 2018-04-03 14:20 | DISCH ---
ADMISSION DIAGNOSES: 1. Left inguinal hernia. 2. Chronic, moderate, persistent asthmatic lung disease. 3. Hypertension. 4. Glaucoma. DISCHARGE DIAGNOSES: Left inguinal exploration with: 1. Repair of incarcerated femoral hernia with mesh. 2. Repair of recurrent left inguinal hernia with mesh. 3. Repair area of deserosalization, sigmoid colon. 4. Excision of left inguinal ileal nerve. For incarcerated left femoral hernia, non-incarcerated recurrent left inguinal hernia, deserolized segment of the sigmoid colon and left ilioinguinal nerve. Date of surgery 03/31/2018. Surgeon, Jun Radford MD. HISTORY: Natividad Ponce is an 87-year-old female with symptomatic left inguinal hernia for 1-2 years. After preoperative evaluation and discussion of possible risks and possible complications, she wished to proceed with surgical procedure. HOSPITAL COURSE: Natividad had her surgery on 03/31/2018. She had no operative complications. On postoperative day #1, she had no complications. She was started on a diet and an oral pain medication. Her pain was difficult at first to control. On postoperative day #2, she was not adequately mobile to go home and was given some bowel stimulation and her pain was better controlled. On 04/03/2018, her activity was good, vital signs were stable, pain controlled, oral intake adequate, and she was able to be discharged to home. PHYSICAL EXAMINATION: GENERAL: Natividad Ponce is an 87-year-old female. Height is 5 feet 1 inch. VITAL SIGNS: TPR is 98.3, 87, 12, blood pressure 142/63. HEENT: Negative. NECK: Supple. HEART: Regular rate and rhythm. LUNGS: Clear. ABDOMEN: Left incision looks good. EXTREMITIES: Without peripheral edema. DISPOSITION: Discharged to home with home health care. FOLLOWUP APPOINTMENT: With Jodi Garcia PA-C, on 04/10/2018 at 10 a.m. HOME MEDICATIONS: Tylenol 650 mg q.6 hours p.r.n. pain #50. She is to resume home medication of ProAir inhaler 2 puffs inhalation every 4 hours p.r.n. shortness of breath, Proventil nebulizer 3 mL every 4 hours p.r.n. shortness of breath, 81 mg of aspirin, Alphagan 0.15% ophthalmic solution 1 drop left eye twice daily, calcium carbonate 500 mg oral daily, Advair 500/50 one puff inhalation daily, Ativan 0.5 mg oral daily, latanoprost 2.5 mg ophthalmic at bedtime, multivitamin 1 tablet oral daily, omeprazole 20 mg oral daily, potassium chloride 10 mEq oral daily, Kenalog 0.1% cream topical twice daily, and hydrochlorothiazide 12.5 mg oral daily. DIET: Usual diet as tolerated, drink 8 to 10 glasses of water a day. ACTIVITY: As tolerated. No lifting greater than 10 pounds for 6 weeks. Driving, do not drive for one week. Shower/bathing, may shower. DISCHARGE INSTRUCTIONS: Notify provider if any fever, increased pain, swelling, redness, drainage, keep site clean and dry. Special instruction: Use incentive spirometer 10 times every hour while awake for 1 week.
--- NOTE | 2018-04-12 08:46 | OR ---
DATE OF PROCEDURE: 03/31/2018 PREOPERATIVE DIAGNOSIS: Incarcerated left groin hernia. POSTOPERATIVE DIAGNOSES: 1. Incarcerated left femoral hernia. 2. Non-incarcerated direct left inguinal hernia. 3. Deserosalized segment of sigmoid colon present in femoral hernia. 4. Left ilioinguinal nerve at risk for scar entrapment. OPERATIVE PROCEDURE: Left inguinal exploration with: 1. Repair of incarcerated left femoral hernia with mesh (27403). 2. Repair of direct left inguinal hernia with mesh (79115). 3. Repair of deserosalized segment of sigmoid colon (51117). 4. Excision of left ilioinguinal nerve (58420). ANESTHESIA: Local plus IV sedation. SURGEON: Jun Radford MD ASSISTANTS: Jodi Garcia PA-C, and PARISH Tyson. INDICATIONS FOR PROCEDURE: This is an 87-year-old female presenting with increasingly symptomatic discomfort in her left groin area. She appears to have an inguinal hernia present, although the presence is somewhat low, suggesting possible element of a femoral hernia. The plan is to proceed with inguinal exploration with repair of hernias with mesh as indicated. Potential risks including bleeding, infection, injury to underlying viscera, possible recurrence of the hernia or mesh becoming infected were all gone over. Additionally, that we often will divide the ilioinguinal nerve and/or iliohypogastric nerves as part of this procedure, so as to minimize problems with postoperative neuropathic pain, were gone over, and the patient wishes to proceed. DETAILS OF PROCEDURE: The patient was taken to the operating room, and after IV sedation was administered, the abdomen and groin areas were prepped and draped. The left inguinal area was then anesthetized with 1% lidocaine mixed with Marcaine, and a standard left inguinal incision was made and carried down through the skin and subcutaneous tissue and through the external oblique aponeurosis in line with the external ring. Subaponeurotic flaps were then raised superiorly and inferiorly. The patient was noted to have a small direct type of left inguinal hernia. The major bulging at that point appeared to be coming below the inguinal ligament, and as that area was dissected, it became evident that the patient had an incarcerated left femoral hernia. This was gradually dissected free. During the course of the dissection, a segment of the sigmoid colon was deserosalized without any full-thickness injury. This was repaired with some 3-0 Vicryl seromuscular stitches. This then allowed reduction of the sigmoid colon without further difficulty. The femoral hernia was then repaired by means of a large mesh plug placed into the defect from below. This was affixed posteriorly to the Neal's ligament with titanium tacking screws into the medial, anterior, and lateral sides of the hernia defect with horizontal mattress sutures of 2-0 Vicryl stitch. The free edge of the femoral hernia was then tacked down to the Neal's ligament with a running 0 Vicryl stitch as well. At this point, the direct inguinal hernia was identified. This was easily reducible. This was a blind defect across the medial inguinal floor, and after initial dissection of this area, we elected to bring the conjoint tendon down to the shelving portion of the inguinal ligament with a running 0 Vicryl stitch. Over this, then, the flat portion of the mesh plug system was placed and affixed to the pubic tubercle medially with titanium tacking screw and then sutured in place with some 3-0 Vicryl stitch, holding its internal position. Prior to the mesh being placed, a segment of the ilioinguinal nerve was removed, and this was divided out in the far lateral aspect of the incision, so as to avoid postop neuropathic pain, as the flat portion of the mesh plug system would be lying directly overlying the course of the nerve. At this point, the external oblique aponeurosis was then reapproximated with a 3-0 Vicryl stitch as was Jose's fascia and the skin closed with 4-0 Vicryl subcuticular stitch. Dressing was applied. The patient was taken to the recovery room in satisfactory condition. There were no evident complications. Physician doctor assistant, Jodi Garcia, played an essential role in assisting in this case, helping to position the patient, retract structures as needed, as well as suturing and cutting sutures as indicated. Her presence improved patient safety and decreased operative time. Jun Radford MD /[id number]
== END 2018-04-03 13:21 | disposition home health service (06) | DRG 330 ==
LOC: JP.SDS 06:46 → JP.MS 08:00 → UNDOADMOB 10:15 → JP.MS 10:15 → OBSVTOIN 04-02 08:00 → INTOOBSV 04-02 08:00
PROVIDERS: ADMIT Surgery; ATTEND Surgery
PROC: 0YU80JZ Supplement Left Femoral Region with Synthetic Substitute, Open Approach (ICD-10-PCS; principal; 2018-03-31)
PROC: 0YU60JZ Supplement Left Inguinal Region with Synthetic Substitute, Open Approach (ICD-10-PCS; 2018-03-31)
PROC: 0DQN0ZZ Repair Sigmoid Colon, Open Approach (ICD-10-PCS; 2018-03-31)
PROC: 01BB0ZZ Excision of Lumbar Nerve, Open Approach (ICD-10-PCS; 2018-03-31)
DX: K40.91 Unilateral inguinal hernia, without obstruction or gangrene, recurrent (principal); K41.30 Unilateral femoral hernia, with obstruction, without gangrene, not specified as recurrent; I10 Essential (primary) hypertension; K21.9 Gastro-esophageal reflux disease without esophagitis; J45.40 Moderate persistent asthma, uncomplicated; E03.9 Hypothyroidism, unspecified; H40.9 Unspecified glaucoma; Z88.1 Allergy status to other antibiotic agents; Z88.2 Allergy status to sulfonamides; Z79.899 Other long term (current) drug therapy; Z98.1 Arthrodesis status; Z79.82 Long term (current) use of aspirin; Z87.891 Personal history of nicotine dependence
CPT/HCPCS: 44604; 49505; 49553; 64772; 94640 ×6; 94762 ×2; A9270 ×17; C1781; G0378 ×2; J0690; J1885; J2704 ×2; J3010; J3490; J7042 ×2; 88302; J7620-GY

== ENCOUNTER 2018-05-13 08:10 | Emergency (ER) | payer MEDICARE, OTHER ==
[2018-05-13 08:32] VITALS: BP 173/80
--- NOTE | 2018-05-13 09:20 | EDM.PDOC ---
<Fabiola Lay M - Last Filed: 05/13/18 09:15> ED HPI GENERAL MEDICAL PROBLEM - General Chief Complaint: Gastrointestinal Problem Stated Complaint: BOWEL TROUBLE, FOOT PAIN, DRY MOUTH Time Seen by Provider: 05/13/18 08:50 Source of Information: Reports: Patient History Limitations: Reports: No Limitations - History of Present Illness Onset: Gradual Location: Reports: Abdomen (Constipation began on Tuesday when didn't have daily bowel movement. Ate pizza night prior, feels this was the reason for her present state. ) Associated Symptoms: Reports: No Other Symptoms Right Feet Pain Score (Numeric/FACES): 2 - Related Data Allergies Allergy/AdvReac Type Severity Reaction Status Date / Time doxycycline Allergy Cannot Verified 05/13/18 08:27 Remember fluconazole Allergy Other Verified 05/13/18 08:27 Sulfa (Sulfonamide Allergy Other Verified 05/13/18 08:27 Antibiotics) cefatrizine [Cefatrizine] AdvReac Vomiting Verified 05/13/18 08:27 cefdinir AdvReac Nausea and Verified 05/13/18 08:27 Vomiting ciprofloxacin AdvReac Joint Pain Verified 05/13/18 08:27 levofloxacin AdvReac Joint Pain Verified 05/13/18 08:27 Home Meds: Home Meds Fluticasone/Salmeterol [Advair 500-50] 1 puff INH DAILY 10/31/12 [History] Aspirin [Guero Chewable Aspirin] 81 mg PO DAILY 01/26/14 [History] Multivitamin with Minerals [Multiple Vitamin] 1 tab PO DAILY 01/26/14 [History] Omeprazole 20 mg PO DAILY 08/05/16 [History] hydroCHLOROthiazide [Hydrochlorothiazide] 12.5 mg PO DAILY cap 08/06/16 [Rx] Albuterol Sulfate [Proair Hfa] 2 puff INH Q4H PRN 03/01/17 [History] Brimonidine [Alphagan P 0.15% Ophth Soln] 1 drop EYELF BID 06/09/17 [History] Latanoprost 2.5 ml OP BEDTIME 06/10/17 [History] Potassium Chloride 10 meq PO DAILY 02/17/18 [History] Triamcinolone Acetonide [Kenalog 0.1% Crm] 1 applic TOP BID 02/17/18 [History] Albuterol [Proventil Neb Soln] 3 ml NEB Q4H PRN 03/28/18 [History] LORazepam [Ativan] 0.5 mg PO DAILY 03/28/18 [History] Polyethylene Glycol 3350 [Miralax] 17 gm PO ASDIRECTED #10 powd.pack 05/13/18 [ Rx] Past Medical History HEENT History: Reports: Cataract, Glaucoma, Hard of Hearing, Impaired Vision Cardiovascular History: Reports: Arrhythmia, Hypertension, Other (See Below) Other Cardiovascular History: mitral valve prolapse Respiratory History: Reports: Asthma, Bronchitis, Recurrent, Pneumonia, Recurrent Gastrointestinal History: Reports: GERD, Other (See Below) 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 Psychiatric History: Reports: Anxiety, Depression Endocrine/Metabolic History: Reports: Osteopenia Hematologic History: Reports: Blood Transfusion(s) Immunologic History: Reports: Other (See Below) Other Immunologic History: hepatitis Dermatologic History: Reports: Eczema - Infectious Disease History Infectious Disease History: Reports: Chicken Pox, Measles, Scarlet Fever Other Infectious Disease History: at 21 yrs old had hepatitis but unsure which one - Past Surgical History Head Surgeries/Procedures: Reports: None HEENT Surgical History: Reports: Cataract Surgery Cardiovascular Surgical History: Reports: None Respiratory Surgical History: Reports: None GI Surgical History: Reports: Colonoscopy, EGD, Hernia, Inguinal Female Surgical History: Reports: Breast Biopsy Neurological Surgical History: Reports: C-Spine Musculoskeletal Surgical History: Reports: Arthroscopic Knee, Hip Replacement, Other (See Below) Other Musculoskeletal Surgeries/Procedures:: C-spine repair plate and 2 screws for herniated disc Social & Family History - Family History Family Medical History: Noncontributory Oncologic: Reports: Esophageal - Tobacco Use Smoking Status *Q: Former Smoker Used Tobacco, but Quit: Yes Month/Year Tobacco Last Used: 1987 - Caffeine Use Caffeine Use: Reports: Soda - Recreational Drug Use Recreational Drug Use: No - Living Situation & Occupation Living situation: Reports: Occupation: Retired (85 y/o female lives alone at her home on [address]. one son, lives in [place]) ED ROS GENERAL - Review of Systems Review Of Systems: See Below Constitutional: Reports: Weight Loss (speaks of 5-10 pound weight loss in past 6 months, feels it is due to her hernia) HEENT: Reports: No Symptoms Respiratory: Reports: Wheezing (expiratory wheezes lower lobes bilaterally) Endocrine: Reports: No Symptoms GI/Abdominal: Reports: Constipation (active bowel sounds in all quadrants) : Reports: No Symptoms Musculoskeletal: Reports: No Symptoms Skin: Reports: No Symptoms Neurological: Reports: No Symptoms Psychiatric: Reports: No Symptoms Hematologic/Lymphatic: Reports: No Symptoms Immunologic: Reports: No Symptoms ED EXAM, GI/ABD - Physical Exam Exam: See Below Exam Limited By: No Limitations General Appearance: Alert, WD/WN, No Apparent Distress Ears: Hearing Grossly Normal Head: Atraumatic Neck: Normal Inspection, Full Range of Motion Respiratory/Chest: No Respiratory Distress, Wheezing (occassional expiratory) Cardiovascular: Regular Rate, Rhythm, No Murmur (Patient states irregular, note noted on exam) GI/Abdominal Exam: Normal Bowel Sounds, No Organomegaly Extremities: No Pedal Edema Neurological: Alert, Oriented, Normal Cognition Psychiatric: Normal Affect, Normal Mood Skin Exam: Warm, Dry, Intact, Normal Color, No Rash Course - Vital Signs Last Recorded V/S: Last Vital Signs Temp 35.3 C 05/13/18 08:33 Pulse 72 05/13/18 08:33 Resp 12 05/13/18 08:33 BP 173/80 H 05/13/18 08:33 Pulse Ox 94 L 05/13/18 08:33 Departure - Departure Disposition: Home, Self-Care 01 Clinical Impression: Constipation Qualifiers: Constipation type: unspecified constipation type Qualified Code(s): K59.00 - Constipation, unspecified - Discharge Information Prescriptions: Polyethylene Glycol 3350 [Miralax] 17 gm PO ASDIRECTED #10 powd.pack Instructions: Constipation, Adult Referrals: Ricky Traylor MD [Primary Care Provider] - Forms: ED Department Discharge Additional Instructions: Take the miralax up to 3 times daily in addition to the doculax you are already taking As discussed, it is important that you avoid dairy until you are having regular bowel movements and try to eat more fruits and veggies Follow up with your primary doctor this week <Dong Ye - Last Filed: 05/14/18 07:39> ED HPI GENERAL MEDICAL PROBLEM - History of Present Illness INITIAL COMMENTS - FREE TEXT/NARRATIVE: 87 yo with recent hernia surgery who presents with concerns of constipation Ate more cheese than usual earlier this week Since this time had smaller, hard bowel movements Did have recent hernia surgery but not on narcotics No pain Started doculax earlier this week and use and enema she had around her home yesterday Mostly eating frozen TV dinners Course - Re-Assessments/Exams Free Text/Narrative Re-Assessment/Exam: 87 yo presents with concerns of constipation Did have recent hernia surgery but not on narcotics Poor diet including significant dairy and frozen dinners She denies pain. Benign exam. Actually is having some small BMs Will add miralax prn Discussed dietary changes and PCP f/u Remainder per above [employer] student note, reflects my exam 05/14/18 07:35 Departure - Departure Time of Disposition: 09:35 - Discharge Information *PRESCRIPTION DRUG MONITORING PROGRAM REVIEWED*: No *COPY OF PRESCRIPTION DRUG MONITORING REPORT IN PATIENT BRANDIN: No
== END 2018-05-13 09:50 | disposition home or self-care (01) ==
LOC: JP.ED 08:10
DX: K59.00 Constipation, unspecified (principal); I10 Essential (primary) hypertension; F41.9 Anxiety disorder, unspecified; F32.9 Major depressive disorder, single episode, unspecified; Z79.82 Long term (current) use of aspirin; Z79.899 Other long term (current) drug therapy; Z88.1 Allergy status to other antibiotic agents; Z87.891 Personal history of nicotine dependence; Z88.2 Allergy status to sulfonamides
CPT/HCPCS: 99283